=== PATIENT | female | born 1980 | race Caucasian/White ===

== ENCOUNTER 2019-02-16 12:46 | Outpatient (RCR) | payer OTHER, SELFPAY ==
--- NOTE | 2019-02-16 16:00 | PT.OIE ---
Current Diagnoses Benign paroxysmal vertigo, left ear (02/16/19) Provider Visit Care Team Role Provider Type Nisha Tate MD Attending Provider Physician Primary Care Provider Specialty: Family Practice Address: [address] [place] [address], [facility] Email: Physical Therapy Initial Evaluation PT-OP-A Visit Information Start: 02/16/19 07:25 Freq: Status: Active Protocol: Document 02/16/19 13:00 AMB (Rec: 02/19/19 08:45 AMB [email or web address]) Out-Patient Physical Therapy Visit Information Visit Information Visit Type Initial Evaluation Visit Start Time 13:00 Visit Stop Time 13:45 Total Visit Minutes 45 Visit Number 1 PT-OP-B Current Condition Start: 02/16/19 07:25 Freq: Status: Active Protocol: Document 02/16/19 13:00 AMB (Rec: 02/19/19 09:07 AMB [email or web address]) Current Condition History of Current Condition Onset Date 2 weeks ago Current Complaints vertigo History of Current Condition Rachel reports a history of 2 seperate instances of spinning vertigo. The first was about 2 years ago after the of her youngest child. She reports she felt off for a whole day, but then improved with the help of her chiropractor. She felt pretty good until 2 weeks ago, when she had dizziness again. This time enough that she vomited and her had to help her up from the bathroom floor . The worst of it is over now , but she still gets dizzy when getting out of bed. Prior Functional Status Baseline Function- ADL's Independent Baseline Function- Mobility Independent Current Functional Impairments (Reported) Functional Limitations- ADL's Limited with bed mobility, driving when it is at its worst. PT-OP-C Subjective Start: 02/16/19 07:25 Freq: Status: Active Protocol: Document 02/16/19 13:00 AMB (Rec: 02/19/19 08:48 AMB [email or web address]) Patient Questionnaires Dizziness Handicap Inventory DHI Score 42 DHI Functional Impairment 40 to 59% Impaired (Score 40- 59) PT-OP-O Vestibular Start: 02/16/19 07:25 Freq: Status: Active Protocol: Document 02/16/19 13:00 AMB (Rec: 02/19/19 08:53 AMB [email or web address]) Vestibular Assessment Visual Testing Smooth Pursuits Horizontal WFL Smooth Pursuits Vertical WFL Saccades Horizontal WFL Saccades Vertical WFL Thrust Head Negative Cover/Uncover Test WNL Positional Testing [place]-Hallpike Positive Left Upbeating Comments Vestibular Comments Dizziness and 2-3 seconds of upbeating nystagmus with first position of Bello, no dizziness or nystagmus with second Bello. PT-OP-Q Treatments Start: 02/16/19 07:25 Freq: Status: Active Protocol: Document 02/16/19 13:00 AMB (Rec: 02/19/19 08:48 AMB [email or web address]) Canalithic Repositioning BPPV Treatment Bello Affected Canal(s) Left Reps 2 PT-OP-T Assessment and Plan Start: 02/16/19 07:25 Freq: Status: Active Protocol: Document 02/16/19 13:00 AMB (Rec: 02/19/19 09:07 AMB [email or web address]) Physical Therapy Assessment Rehab Potential Rehabilitation Potential Good Evaluation Complexity Number of Personal Factors/Comorbidities 0 Number of Body Systems Impaired 1-2 Clinical Presentation at Evaluation Stable Impairments Impairments Functional Activities Vestibular Goals Two Impairment dizziness Short Term Goal (STG) Rachel will bend over to pick up man an item from the floor without dizziness. STG Duration 2 weeks Fpc Goal (LTG) Rachel will turn her head quickly without dizziness. LTG Duration 8 weeks One Impairment vestibular system Short Term Goal (STG) Rachel will get out of bed without dizziness. STG Duration 2 weeks Acoustic Engineer Goal (LTG) Rachel will have no dizziness or nystagmus with [place]-Hallpike. LTG Duration 4 weeks Assessment Summary Assessment Rachel attends physical therapy with what is likely her second bout of BPPV in the last 2 years. She does not report a concussion history. She showed good resolution of her symptoms when assessed during her second Bello, so assuming that her symptoms stay resolved, she will have a short bout of physical therapy . She is young to have already had two bouts of BPPV without head trauma history, so if this becomes recurrent for her she could consider further workup at that time. Physical Therapy Plan Frequency and Duration Frequency of Treatment 1x/Week Duration of Treatment 4 weeks Plan of Care Start Date 02/16/19 Plan of Care End Date 03/16/19 Therapeutic Interventions Therapeutic Interventions Neuromuscular Re-education Therapeutic Activities Therapeutic Exercises Vestibular Rehabilitation Next Visit Focus/Plan Next Note Type Treatment Note Next Visit Plan Recheck Ayan-Hallpike, if clear assess balance/ VOR.
--- NOTE | 2019-02-16 16:00 | PT.OPPOC ---
Current Diagnoses Benign paroxysmal vertigo, left ear (02/16/19) Provider Visit Care Team Role Provider Type Nisha Tate MD Attending Provider Physician Primary Care Provider Specialty: Family Practice Address: [address] [place] [address], [id number] Email: Plan Of Care PT-OP-T Assessment and Plan Start: 02/16/19 07:25 Freq: Status: Active Protocol: Document 02/16/19 13:00 AMB (Rec: 02/19/19 09:07 AMB [email or web address]) Physical Therapy Assessment Rehab Potential Rehabilitation Potential Good Evaluation Complexity Number of Personal Factors/Comorbidities 0 Number of Body Systems Impaired 1-2 Clinical Presentation at Evaluation Stable Impairments Impairments Functional Activities Vestibular Goals Two Impairment dizziness Short Term Goal (STG) Rachel will bend over to picker / packer an item from the floor without dizziness. STG Duration 2 weeks Door To Door Selling Agent Goal (LTG) Rachel will turn her head quickly without dizziness. LTG Duration 8 weeks One Impairment vestibular system Short Term Goal (STG) Rachel will get out of bed without dizziness. STG Duration 2 weeks Prison Goal (LTG) Rachel will have no dizziness or nystagmus with [place]-Hallpike. LTG Duration 4 weeks Assessment Summary Assessment Rachel attends physical therapy with what is likely her second bout of BPPV in the last 2 years. She does not report a concussion history. She showed good resolution of her symptoms when assessed during her second Bello, so assuming that her symptoms stay resolved, she will have a short bout of physical therapy . She is young to have already had two bouts of BPPV without head trauma history, so if this becomes recurrent for her she could consider further workup at that time. Physical Therapy Plan Frequency and Duration Frequency of Treatment 1x/Week Duration of Treatment 4 weeks Plan of Care Start Date 02/16/19 Plan of Care End Date 03/16/19 Therapeutic Interventions Therapeutic Interventions Neuromuscular Re-education Therapeutic Activities Therapeutic Exercises Vestibular Rehabilitation Next Visit Focus/Plan Next Note Type Treatment Note Next Visit Plan Recheck [place]-Hallpike, if clear assess balance/ VOR. Plan of Care Dates Plan of Care Start Date 02/16/19 Plan of Care End Date 03/16/19 Please Sign and Return: I have reviewed this Plan of Care and certify that the skilled therapy services above are required to meet the patient?s needs. Physician Signature Date Printed Name and Credentials Clinical Instructor Signature Printed Name and Credentials
--- NOTE | 2019-05-04 09:29 | PT.OPDS ---
Current Diagnoses Benign paroxysmal vertigo, left ear (02/16/19) Provider Visit Care Team Role Provider Type Nisha Tate MD Attending Provider Physician Primary Care Provider Specialty: Family Practice Address: [address] [place] [address], [facility] Email: Visit Number Visit Number 1 Discharge Summary PT-OP-B Current Condition Start: 02/16/19 07:25 Freq: Status: Active Protocol: Document 02/16/19 13:00 AMB (Rec: 02/19/19 09:07 AMB [email or web address]) Current Condition History of Current Condition Onset Date 2 weeks ago Current Complaints vertigo History of Current Condition Rachel reports a history of 2 seperate instances of spinning vertigo. The first was about 2 years ago after the of her youngest child. She reports she felt off for a whole day, but then improved with the help of her chiropractor. She felt pretty good until 2 weeks ago, when she had dizziness again. This time enough that she vomited and her had to help her up from the bathroom floor . The worst of it is over now , but she still gets dizzy when getting out of bed. Prior Functional Status Baseline Function- ADL's Independent Baseline Function- Mobility Independent Current Functional Impairments (Reported) Functional Limitations- ADL's Limited with bed mobility, driving when it is at its worst. PT-OP-C Subjective Start: 02/16/19 07:25 Freq: Status: Active Protocol: Document 02/16/19 13:00 AMB (Rec: 02/19/19 08:48 AMB [email or web address]) Patient Questionnaires Dizziness Handicap Inventory DHI Score 42 DHI Functional Impairment 40 to 59% Impaired (Score 40- 59) PT-OP-O Vestibular Start: 02/16/19 07:25 Freq: Status: Active Protocol: Document 02/16/19 13:00 AMB (Rec: 02/19/19 08:53 AMB [email or web address]) Vestibular Assessment Visual Testing Smooth Pursuits Horizontal WFL Smooth Pursuits Vertical WFL Saccades Horizontal WFL Saccades Vertical WFL Thrust Head Negative Cover/Uncover Test WNL Positional Testing Ayan-Hallpike Positive Left Upbeating Comments Vestibular Comments Dizziness and 2-3 seconds of upbeating nystagmus with first position of Bello, no dizziness or nystagmus with second Bello. PT-OP-T Assessment and Plan Start: 02/16/19 07:25 Freq: Status: Active Protocol: Document 05/04/19 09:27 AMB (Rec: 05/04/19 09:28 AMB [email or web address]) Physical Therapy Assessment Assessment Summary Assessment Rachel had good resolution of her BPPV during eval. She canceled her follow up appointment because she was feeling better and has not called back for follow up so she is discharged at this time .
== END 2019-05-04 13:42 | disposition home or self-care (01) ==
LOC: PHYS 12:46
PROVIDERS: PCP Family Medicine; Visit Provider Family Medicine
DX: H81.12 Benign paroxysmal vertigo, left ear (principal)
CPT/HCPCS: 95992; 97161

== ENCOUNTER → 2019-03-16 09:13 | Outpatient (CLI) | payer OTHER, SELFPAY ==
--- NOTE | 2019-03-16 | DI.US.S_ITS ---
PROCEDURE: US PELVIC COMPLETE INDICATIONS: ADNEXAL TENDERNESS TECHNIQUE: Real-time scanning was performed of the pelvic organs, with image documentation. Additional endovaginal scanning was necessary due to incomplete visualization of the adnexal and endometrial structures by transabdominal scanning. COMPARISON: None. FINDINGS: Transabdominal scanning: Limited scanning through the kidneys shows no hydronephrosis. No pathologic free abdominal or pelvic fluid. Endovaginal scanning: Uterus: Uterus is normal in size at 8.3 x 4.6 x 6.0 cm. The endometrium measures 5.0 mm in combined thickness. Ovaries: Normal ovaries bilaterally measuring 2.2 x 1.2 x 1.3 cm on the right and 1.1 x 2.7 x 1.6 cm on the left. IMPRESSION: No source for pelvic pain identified. Dictated by: Shubham Akers Nia Interpreted: Eunice Tang MD on 03/16/2019 at 10:17 Approved by: Eunice Tang M.D. on 03/16/2019 at 11:42
== END ==
PROVIDERS: PCP Family Medicine; Visit Provider Family Medicine
DX: R10.2 Pelvic and perineal pain (principal)
CPT/HCPCS: 76830; 76856

== ENCOUNTER → 2019-09-17 09:03 | Outpatient (CLI) | payer OTHER, SELFPAY ==
--- NOTE | 2019-09-17 | DI.US.S_ITS ---
ULTRASOUND OF LEFT BREAST: 09/17/2019 CLINICAL: Focal left breast discomfort. Comparison is made to exam dated: 09/17/2019 [facility]. Real-time ultrasound of the left breast was performed. Baugh scale images of the real-time examination were reviewed. No significant abnormalities were seen sonographically in the left breast. IMPRESSION: NEGATIVE There is no sonographic evidence of malignancy. There is no abnormality seen in the left breast to correspond with the area of clinical concern, palpable abnormality, and pain indicated by square marker, however, clinical followup is recommended for persistent symptoms. A 1 year screening mammogram is recommended. This exam was interpreted at Station ID: [id number]. Electronically Signed By: Salvador Reyes M.D. aty/:09/17/2019 16:26:13 letter sent: Normal Exam Ultrasound BI-RADS: 1 Negative
--- NOTE | 2019-09-17 | DI.MG.S_ITS ---
BILATERAL DIGITAL DIAGNOSTIC MAMMOGRAM 3D/2D: 09/17/2019 CLINICAL: Baseline. Family history of breast cancer. Left breast discomfort. No prior exams were available for comparison. The tissue of both breasts is extremely dense, which lowers the sensitivity of mammography. No significant masses, calcifications, or other findings are seen in either breast. IMPRESSION: INCOMPLETE: NEEDS ADDITIONAL IMAGING EVALUATION There is no abnormality seen in the left breast to correspond with the area of clinical concern, palpable abnormality, and pain in the posterior depth in the upper outer quadrant, however, further evaluation with sonogram is recommended which is scheduled to immediately follow this examination. This exam was interpreted at Station ID: [id number]. NOTE: For mammograms, a report in lay terms will be sent to the patient. Approximately 15% of breast malignancies will not be visualized mammographically. In the management of a palpable breast mass, a negative mammogram must not discourage biopsy of a clinically suspicious lesion. Electronically Signed By: Salvador Reyes M.D. aty/:09/17/2019 16:15:00 ACR BI-RADS Category 0: Incomplete [id number]
== END ==
PROVIDERS: PCP Family Medicine; Visit Provider Family Medicine
DX: R92.8 Other abnormal and inconclusive findings on diagnostic imaging of breast (principal); N64.4 Mastodynia; N63.20 Unspecified lump in the left breast, unspecified quadrant; Z80.3 Family history of malignant neoplasm of breast
CPT/HCPCS: 76642; 77066; G0279

== ENCOUNTER 2019-12-13 10:30 | Outpatient (RCR) | payer OTHER, SELFPAY ==
--- NOTE | 2019-12-10 16:04 | PT.OIE ---
Current Diagnoses Benign paroxysmal vertigo, unspecified ear (12/10/19) Visit Care Team Role Provider Type Nisha Tate MD Attending Provider Physician Primary Care Provider Referring Provider Specialty: Family Practice Address: [address] [place] [address], [facility], [place], [place], [facility] Email: [email or web address] Physical Therapy Initial Evaluation PT-OP-A Visit Information Start: 12/10/19 10:04 Freq: Status: Active Protocol: Document 12/10/19 10:33 MB (Rec: 12/10/19 11:35 MB [id number]) Out-Patient Physical Therapy Visit Information Visit Information Visit Type Initial Evaluation Visit Note [facility] Visit Start Time 10:35 Visit Stop Time 11:35 Total Visit Minutes 60 Visit Number 1 Evaluation Information Evaluation Date 12/10/19 PT-OP-B Current Condition Start: 12/10/19 10:04 Freq: Status: Active Protocol: Document 12/10/19 10:33 MB (Rec: 12/10/19 11:35 MB [id number]) Current Condition History of Current Condition Onset Date 12/09/2019 Current Complaints Nausea, dizziness and headache History of Current Condition Pt reports that she woke up on her left side and rolled over the right and that is when she could not walk straight. Her neck is not hurting. She is having a frontal ERVIN. She rates it as 5-6/10. She thinks that sitting in a room with a bright light might exacerbate it. She has had borderline migraine-type headaches in the past when she has had vertigo . She tried the summersault technique yesterday x3 and vomited each time and didn't feel better. She had roaring and ringing in her right ear yesterday. She is having right ear ringing and it is not feeling right. This is the fourth time she has had this problem. The symptoms usually last 2-4 days. She denies vision changes, allergies, weakness. She denies chiropractor care, MVA, whiplash, head injury. She went to [employer] and rode rides several weeks ago. She works out a lot and watches her posture. She had recurrent strep in the past and was on antibiotics. She was thinking about getting her tonsils out. 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 She uses one full pillow under her head. Her right ear hurts when she lies on it. Prior Treatments and Tests PT for BPPV last year, hearing test, an Bello by urgent care and ENT PT-OP-C Subjective Start: 12/10/19 10:04 Freq: Status: Active Protocol: Document 12/10/19 10:33 MB (Rec: 12/10/19 16:01 MB [id number]) OP-PT Subjective Patient Comments Patient Comments Just get me better. Patient Reported Progress Same OP-PT Pain Assessment Comments Pain Comments Pt reports headache in frontal area 5-6/10 that is exacerbated by light and BPPV testing and treatment positions PT-OP-K Range of Motion Start: 12/10/19 10:04 Freq: Status: Active Protocol: Document 12/10/19 10:33 MB (Rec: 12/10/19 16:01 MB [id number]) Cervical Spine Range of Motion Cervical Spine Active Testing Position Sitting Comments Flexion, extension and B rotation normal PT-OP-M Strength Start: 12/10/19 10:04 Freq: Status: Active Protocol: Document 12/10/19 10:33 MB (Rec: 12/10/19 16:01 MB [id number]) Shoulder Strength Shoulder Manual Muscle Testing Left Flexion 5 Normal Right Flexion 5 Normal Elbow/Forearm Strength Elbow and Forearm Manual Muscle Testing Left Flexion (C6) 5 Normal Extension (C7) 5 Normal Right Flexion (C6) 5 Normal Extension (C7) 5 Normal PT-OP-O Vestibular Start: 12/10/19 10:04 Freq: Status: Active Protocol: Document 12/10/19 10:33 MB (Rec: 12/10/19 16:01 MB [id number]) Vestibular Assessment Visual Testing Smooth Pursuits Horizontal Normal Smooth Pursuits Vertical Normal Gaze Evoked Nystagmus With Fixation Negative Convergence Test WNL Spontaneous Nystagmus Negative Positional Testing Ayan-Hallpike Positive Right,Upbeating,> 60 Seconds Comments Vestibular Comments Nystagmus is delayed with right Ayan-Hallpike and then lasts greater than 1 min. It is upbeating and rotatory in nature. PT moves pt through canalith repositioning maneuver since she is already down and then PT treats her with Semont maneuver for right posterior cupulolithiasis. While in Semont position 1, her nystagmus lasts at least 2 minutes (the longer she is in position) and she reports neck discomfort. PT is concerned about possible vertebrobasilar component to sxs. Pt walks with head and neck guarded, emesis bag and is unable to tolerate further balance testing today d/t severity of sxs PT-OP-Q Treatments Start: 12/10/19 10:04 Freq: Status: Active Protocol: Document 12/10/19 10:33 MB (Rec: 12/10/19 16:01 MB [id number]) Canalithic Repositioning BPPV Treatment Other Comments Canalith repositioning maneuever right posterior canal d/t [place]-Hallpike positioning and then Semont maneuever to the right for right posterior cupulolithiasis PT-OP-T Assessment and Plan Start: 12/10/19 10:04 Freq: Status: Active Protocol: Document 12/10/19 10:33 MB (Rec: 12/10/19 16:01 MB [id number]) Physical Therapy Assessment Rehab Potential Rehabilitation Potential Fair Evaluation Complexity Number of Personal Factors/Comorbidities 1-2 Number of Body Systems Impaired 3 Clinical Presentation at Evaluation Evolving Impairments Impairments Activity Tolerance,Balance, Functional Mobility,Gait,Pain, Posture,Vestibular Other Impairments Personal factors include not safely driving d/t symptoms, caring for 3 children, 4 episodes of similar symptoms. Body systems affected include vestibular, neuromuscular and musculoskeletal (headache pain ) as well as GI (nausea). Her clinical presentation is evolving d/t ongoing nystagmus with prolonged positioning, severity of sxs Goals Two Senior Living Goal (LTG) Pt will perform progressive HEP including postural, VOR, and self-repositioning maneuver (as appropriate) with I by 01/23/2020. LTG Duration 6 weeks One Line Controller Goal (LTG) Pt will present with no dizziness or nystagmus with [place]-Hallpike and Roll Testing by 01/23/2020. LTG Duration 6 weeks Assessment Summary Assessment Pt is a 39 y/o female presenting with severe dizziness, mild ERVIN and nausea. She woke up yesterday and had dizziness. She has right ear pain and tinnitus. She presents with delayed onset of nystagmus with right [place]- Hallpike today. Nystagmus is upbeating and torsional and lasts longer than a 60 seconds . Treated with Semont maneuver for right posterior cupulolithiasis. Pt presents with nystagmus greater than 2 minutes when held in first position of Semont maneuver. This position is with pt head and neck in right cervical rotation and extension. Given the length of nystagmus, PT is concerned about a possible vertebrobasilar component to her sxs. She also has right ear pain, tinnitus and history of similar events in the past . She may benefit from ENT consult for further work-up. PT referred pt back to PCP. Will initiate PT trial to reassess BPPV and treat as needed. Rapid pronation and supination, finger to nose, pupil constriction to light and oculomotor exam are all negative today. Physical Therapy Plan Frequency and Duration Frequency of Treatment 2x/Week Duration of Treatment 6 weeks Plan of Care Start Date 12/10/19 Plan of Care End Date 01/23/20 Therapeutic Interventions Therapeutic Interventions Balance Training,Canalithic Repositioning,Coordination Training,Home Exercise Program ,Manual Therapy,Neuromuscular Re-education,Patient/Caregiver Education,Self-Care/Home Management,Soft Tissue Mobilization,Taping, Therapeutic Activities, Therapeutic Exercises, Vestibular Rehabilitation Modalities Cold Pack/Ice Massage,Electric Stimulation,Hot Packs, Ultrasound Other Referrals/Consults Referrals/Consults Recommended Returned to PCP for possible follow-up about vertebrobasilar insufficiency, possible ENT referral regarding right ear pain, four episodes of similar sxs in the past, tinnitus, hearing test Next Visit Focus/Plan Next Note Type Treatment Note Next Visit Plan Reassess BPPV
--- NOTE | 2019-12-10 16:04 | PT.OPPOC ---
Physical, Occupational & Speech Therapy At [facility] Current Diagnoses Benign paroxysmal vertigo, unspecified ear (12/10/19) Visit Care Team Role Provider Type Nisha Tate MD Attending Provider Physician Primary Care Provider Referring Provider Specialty: Family Practice Address: [address] [place] [address], [facility], [address] Email: [email or web address] Plan Of Care PT-OP-T Assessment and Plan Start: 12/10/19 10:04 Freq: Status: Active Protocol: Document 12/10/19 10:33 MB (Rec: 12/10/19 16:01 MB [id number]) Physical Therapy Assessment Rehab Potential Rehabilitation Potential Fair Evaluation Complexity Number of Personal Factors/Comorbidities 1-2 Number of Body Systems Impaired 3 Clinical Presentation at Evaluation Evolving Impairments Impairments Activity Tolerance,Balance, Functional Mobility,Gait,Pain, Posture,Vestibular Other Impairments Personal factors include not safely driving d/t symptoms, caring for 3 children, 4 episodes of similar symptoms. Body systems affected include vestibular, neuromuscular and musculoskeletal (headache pain ) as well as GI (nausea). Her clinical presentation is evolving d/t ongoing nystagmus with prolonged positioning, severity of sxs Goals Two Mattress And Foundation Sewer Goal (LTG) Pt will perform progressive HEP including postural, VOR, and self-repositioning maneuver (as appropriate) with I by 01/23/2020. LTG Duration 6 weeks One Residential Goal (LTG) Pt will present with no dizziness or nystagmus with [place]-Hallpike and Roll Testing by 01/23/2020. LTG Duration 6 weeks Assessment Summary Assessment Pt is a 39 y/o female presenting with severe dizziness, mild ERVIN and nausea. She woke up yesterday and had dizziness. She has right ear pain and tinnitus. She presents with delayed onset of nystagmus with right Ayan- Hallpike today. Nystagmus is upbeating and torsional and lasts longer than a 60 seconds . Treated with Semont maneuver for right posterior cupulolithiasis. Pt presents with nystagmus greater than 2 minutes when held in first position of Semont maneuver. This position is with pt head and neck in right cervical rotation and extension. Given the length of nystagmus, PT is concerned about a possible vertebrobasilar component to her sxs. She also has right ear pain, tinnitus and history of similar events in the past . She may benefit from ENT consult for further work-up. PT referred pt back to PCP. Will initiate PT trial to reassess BPPV and treat as needed. Rapid pronation and supination, finger to nose, pupil constriction to light and oculomotor exam are all negative today. Physical Therapy Plan Frequency and Duration Frequency of Treatment 2x/Week Duration of Treatment 6 weeks Plan of Care Start Date 12/10/19 Plan of Care End Date 01/23/20 Therapeutic Interventions Therapeutic Interventions Balance Training,Canalithic Repositioning,Coordination Training,Home Exercise Program ,Manual Therapy,Neuromuscular Re-education,Patient/Caregiver Education,Self-Care/Home Management,Soft Tissue Mobilization,Taping, Therapeutic Activities, Therapeutic Exercises, Vestibular Rehabilitation Modalities Cold Pack/Ice Massage,Electric Stimulation,Hot Packs, Ultrasound Other Referrals/Consults Referrals/Consults Recommended Returned to PCP for possible follow-up about vertebrobasilar insufficiency, possible ENT referral regarding right ear pain, four episodes of similar sxs in the past, tinnitus, hearing test Next Visit Focus/Plan Next Note Type Treatment Note Next Visit Plan Reassess BPPV Plan of Care Dates Plan of Care Start Date 12/10/19 Plan of Care End Date 01/23/20 Electronically Signed by: Paula Mcadams PT 12/10/19 [id number] Please Sign and Return: I have reviewed this Plan of Care and certify that the skilled therapy services above are required to meet the patient?s needs. Physician Signature Date Printed Name and Credentials Clinical Instructor Signature Printed Name and Credentials
--- NOTE | 2019-12-13 12:56 | PT.OTN ---
Current Diagnoses Benign paroxysmal vertigo, unspecified ear (12/13/19) Physical Therapy Treatment Note PT-OP-A Visit Information Start: 12/10/19 10:04 Freq: Status: Active Protocol: Document 12/13/19 10:30 DCW (Rec: 12/13/19 12:56 DCW [id number]) Out-Patient Physical Therapy Visit Information Visit Information Visit Type Treatment Note Visit Start Time 10:30 Visit Stop Time 11:15 Total Visit Minutes 45 Visit Number 2 Number of LOGISTICS PLANNING ENGINEER Visits 0 Evaluation Information Evaluation Date 12/10/19 PT-OP-B Current Condition Start: 12/10/19 10:04 Freq: Status: Active Protocol: Document 12/10/19 10:33 MB (Rec: 12/10/19 11:35 MB [id number]) Current Condition History of Current Condition Onset Date 12/09/2019 Current Complaints Nausea, dizziness and headache History of Current Condition Pt reports that she woke up on her left side and rolled over the right and that is when she could not walk straight. Her neck is not hurting. She is having a frontal ERVIN. She rates it as 5-6/10. She thinks that sitting in a room with a bright light might exacerbate it. She has had borderline migraine-type headaches in the past when she has had vertigo . She tried the summersault technique yesterday x3 and vomited each time and didn't feel better. She had roaring and ringing in her right ear yesterday. She is having right ear ringing and it is not feeling right. This is the fourth time she has had this problem. The symptoms usually last 2-4 days. She denies vision changes, allergies, weakness. She denies chiropractor care, MVA, whiplash, head injury. She went to [place] and rode rides several weeks ago. She works out a lot and watches her posture. She had recurrent strep in the past and was on antibiotics. She was thinking about getting her tonsils out. 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 She uses one full pillow under her head. Her right ear hurts when she lies on it. Prior Treatments and Tests PT for BPPV last year, hearing test, an Bello by urgent care and ENT PT-OP-C Subjective Start: 12/10/19 10:04 Freq: Status: Active Protocol: Document 12/13/19 10:30 DCW (Rec: 12/13/19 12:56 DCW [id number]) OP-PT Subjective Patient Comments Patient Comments Pt reports she is improved, but not great. Able to drive today for the first time since Tuesday. Pt reports she looked up to try to hang a picture yesterday, got very dizzy, and laid down in bed, and is now getting dizzy on her left side . PT-OP-K Range of Motion Start: 12/10/19 10:04 Freq: Status: Active Protocol: Document 12/10/19 10:33 MB (Rec: 12/10/19 16:01 MB [id number]) Cervical Spine Range of Motion Cervical Spine Active Testing Position Sitting Comments Flexion, extension and B rotation normal PT-OP-M Strength Start: 12/10/19 10:04 Freq: Status: Active Protocol: Document 12/10/19 10:33 MB (Rec: 12/10/19 16:01 MB [id number]) Shoulder Strength Shoulder Manual Muscle Testing Left Flexion 5 Normal Right Flexion 5 Normal Elbow/Forearm Strength Elbow and Forearm Manual Muscle Testing Left Flexion (C6) 5 Normal Extension (C7) 5 Normal Right Flexion (C6) 5 Normal Extension (C7) 5 Normal PT-OP-O Vestibular Start: 12/10/19 10:04 Freq: Status: Active Protocol: Document 12/13/19 10:30 DCW (Rec: 12/13/19 12:56 DCW [id number]) Vestibular Assessment Visual Testing Saccades Horizontal WNL Saccades Vertical WNL Gaze Evoked Nystagmus With Fixation Negative Gaze Evoked Nystagmus Without Fixation Negative Heave Test Negative Thrust Head Negative Hamlet String Test WNL Convergence Test 3 cm DVA (Line Degradation) 0 Head Shake Negative Positional Testing Ayan-Hallpike Negative Left,Negative Right Rolling Test Negative Left,Negative Right Supine to Sit Negative Vestibular Function Tests CTSIB Position 1 30 sec CTSIB Position 2 30 sec CTSIB Position 3 30 sec CTSIB Position 4 30 sec CTSIB Position 5 30 sec CTSIB Position 6 30 sec PT-OP-Q Treatments Start: 12/10/19 10:04 Freq: Status: Active Protocol: Document 12/13/19 10:30 DCW (Rec: 12/13/19 12:56 DCW [id number]) Manual Therapy Treatment Other Other Manual Treatments Further vestibular testing Canalithic Repositioning BPPV Treatment Bello Affected Canal(s) Left Reps x1 PT-OP-T Assessment and Plan Start: 12/10/19 10:04 Freq: Status: Active Protocol: Document 12/13/19 10:30 DCW (Rec: 12/13/19 12:56 DCW [id number]) Physical Therapy Assessment Impairments Impairments Activity Tolerance,Balance, Functional Mobility,Gait,Pain, Posture,Vestibular Other Impairments Personal factors include not safely driving d/t symptoms, caring for 3 children, 4 episodes of similar symptoms. Body systems affected include vestibular, neuromuscular and musculoskeletal (headache pain ) as well as GI (nausea). Her clinical presentation is evolving d/t ongoing nystagmus with prolonged positioning, severity of sxs Goals Two Electronic Warfare Specialist Goal (LTG) Pt will perform progressive HEP including postural, VOR, and self-repositioning maneuver (as appropriate) with I by 01/23/2020. LTG Duration 6 weeks One Electronic Warfare Specialist Goal (LTG) Pt will present with no dizziness or nystagmus with [place]-Hallpike and Roll Testing by 01/23/2020. LTG Duration 6 weeks Assessment Summary Assessment Pt vestibular testing was entirely negative, pt was asymptomatic throughout her entire session today. Because of her complaints of brief vertigo yesterday when rolling onto her left side, a left- sided CRM for her posterior canal was performed, despite no noticeable nystagmus or complaint of symptoms. Due to pt's reports of symptoms between her last maneuvers and today, would recommend that she return for her scheduled follow-up to see if her symptoms have returned at that time. Physical Therapy Plan Frequency and Duration Frequency of Treatment 2x/Week Duration of Treatment 6 weeks Plan of Care Start Date 12/10/19 Plan of Care End Date 01/23/20 Therapeutic Interventions Therapeutic Interventions Balance Training,Canalithic Repositioning,Coordination Training,Home Exercise Program ,Manual Therapy,Neuromuscular Re-education,Patient/Caregiver Education,Self-Care/Home Management,Soft Tissue Mobilization,Taping, Therapeutic Activities, Therapeutic Exercises, Vestibular Rehabilitation Modalities Cold Pack/Ice Massage,Electric Stimulation,Hot Packs, Ultrasound Next Visit Focus/Plan Next Note Type Treatment Note Next Visit Plan Reassess BPPV
--- NOTE | 2019-12-13 15:01 | PT.OTN ---
Current Diagnoses Benign paroxysmal vertigo, unspecified ear (12/13/19) Physical Therapy Treatment Note PT-OP-A Visit Information Start: 12/10/19 10:04 Freq: Status: Active Protocol: Document 12/13/19 10:30 DCW (Rec: 12/13/19 12:56 DCW [id number]) Out-Patient Physical Therapy Visit Information Visit Information Visit Type Treatment Note Visit Start Time 10:30 Visit Stop Time 11:15 Total Visit Minutes 45 Visit Number 2 Number of TAX CREDIT LEASING CONSULTANT Visits 0 Evaluation Information Evaluation Date 12/10/19 PT-OP-B Current Condition Start: 12/10/19 10:04 Freq: Status: Active Protocol: Document 12/10/19 10:33 MB (Rec: 12/10/19 11:35 MB [id number]) Current Condition History of Current Condition Onset Date 12/09/2019 Current Complaints Nausea, dizziness and headache History of Current Condition Pt reports that she woke up on her left side and rolled over the right and that is when she could not walk straight. Her neck is not hurting. She is having a frontal ERVIN. She rates it as 5-6/10. She thinks that sitting in a room with a bright light might exacerbate it. She has had borderline migraine-type headaches in the past when she has had vertigo . She tried the summersault technique yesterday x3 and vomited each time and didn't feel better. She had roaring and ringing in her right ear yesterday. She is having right ear ringing and it is not feeling right. This is the fourth time she has had this problem. The symptoms usually last 2-4 days. She denies vision changes, allergies, weakness. She denies chiropractor care, MVA, whiplash, head injury. She went to [employer] and rode rides several weeks ago. She works out a lot and watches her posture. She had recurrent strep in the past and was on antibiotics. She was thinking about getting her tonsils out. 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 She uses one full pillow under her head. Her right ear hurts when she lies on it. Prior Treatments and Tests PT for BPPV last year, hearing test, an Bello by urgent care and ENT PT-OP-C Subjective Start: 12/10/19 10:04 Freq: Status: Active Protocol: Document 12/13/19 10:30 DCW (Rec: 12/13/19 12:56 DCW [id number]) OP-PT Subjective Patient Comments Patient Comments Pt reports she is improved, but not great. Able to drive today for the first time since Tuesday. Pt reports she looked up to try to hang a picture yesterday, got very dizzy, and laid down in bed, and is now getting dizzy on her left side . PT-OP-K Range of Motion Start: 12/10/19 10:04 Freq: Status: Active Protocol: Document 12/10/19 10:33 MB (Rec: 12/10/19 16:01 MB [id number]) Cervical Spine Range of Motion Cervical Spine Active Testing Position Sitting Comments Flexion, extension and B rotation normal PT-OP-M Strength Start: 12/10/19 10:04 Freq: Status: Active Protocol: Document 12/10/19 10:33 MB (Rec: 12/10/19 16:01 MB [id number]) Shoulder Strength Shoulder Manual Muscle Testing Left Flexion 5 Normal Right Flexion 5 Normal Elbow/Forearm Strength Elbow and Forearm Manual Muscle Testing Left Flexion (C6) 5 Normal Extension (C7) 5 Normal Right Flexion (C6) 5 Normal Extension (C7) 5 Normal PT-OP-O Vestibular Start: 12/10/19 10:04 Freq: Status: Active Protocol: Document 12/13/19 10:30 DCW (Rec: 12/13/19 12:56 DCW [id number]) Vestibular Assessment Visual Testing Saccades Horizontal WNL Saccades Vertical WNL Gaze Evoked Nystagmus With Fixation Negative Gaze Evoked Nystagmus Without Fixation Negative Heave Test Negative Thrust Head Negative Hamlet String Test WNL Convergence Test 3 cm DVA (Line Degradation) 0 Head Shake Negative Positional Testing Ayan-Hallpike Negative Left,Negative Right Rolling Test Negative Left,Negative Right Supine to Sit Negative Vestibular Function Tests CTSIB Position 1 30 sec CTSIB Position 2 30 sec CTSIB Position 3 30 sec CTSIB Position 4 30 sec CTSIB Position 5 30 sec CTSIB Position 6 30 sec PT-OP-Q Treatments Start: 12/10/19 10:04 Freq: Status: Active Protocol: Document 12/13/19 10:30 DCW (Rec: 12/13/19 12:56 DCW [id number]) Manual Therapy Treatment Soft Tissue Mobilization 1 Body Location Suboccipital Mobilization Type Myofascial Release,Sustained Pressure Intensity/Depth Superficial Body Position Supine Other Other Manual Treatments Further vestibular testing Canalithic Repositioning BPPV Treatment Bello Affected Canal(s) Left Reps x1 PT-OP-T Assessment and Plan Start: 12/10/19 10:04 Freq: Status: Active Protocol: Document 12/13/19 10:30 DCW (Rec: 12/13/19 12:56 DCW [id number]) Physical Therapy Assessment Impairments Impairments Activity Tolerance,Balance, Functional Mobility,Gait,Pain, Posture,Vestibular Other Impairments Personal factors include not safely driving d/t symptoms, caring for 3 children, 4 episodes of similar symptoms. Body systems affected include vestibular, neuromuscular and musculoskeletal (headache pain ) as well as GI (nausea). Her clinical presentation is evolving d/t ongoing nystagmus with prolonged positioning, severity of sxs Goals Two Mill Dresser Goal (LTG) Pt will perform progressive HEP including postural, VOR, and self-repositioning maneuver (as appropriate) with I by 01/23/2020. LTG Duration 6 weeks One Skilled Nursing Goal (LTG) Pt will present with no dizziness or nystagmus with [place]-Hallpike and Roll Testing by 01/23/2020. LTG Duration 6 weeks Assessment Summary Assessment Pt vestibular testing was entirely negative, pt was asymptomatic throughout her entire session today. Because of her complaints of brief vertigo yesterday when rolling onto her left side, a left- sided CRM for her posterior canal was performed, despite no noticeable nystagmus or complaint of symptoms. Due to pt's reports of symptoms between her last maneuvers and today, would recommend that she return for her scheduled follow-up to see if her symptoms have returned at that time. Brief trial of suboccipital release at the end of her session help pt's complaints of headache immediately. Physical Therapy Plan Frequency and Duration Frequency of Treatment 2x/Week Duration of Treatment 6 weeks Plan of Care Start Date 12/10/19 Plan of Care End Date 01/23/20 Therapeutic Interventions Therapeutic Interventions Balance Training,Canalithic Repositioning,Coordination Training,Home Exercise Program ,Manual Therapy,Neuromuscular Re-education,Patient/Caregiver Education,Self-Care/Home Management,Soft Tissue Mobilization,Taping, Therapeutic Activities, Therapeutic Exercises, Vestibular Rehabilitation Modalities Cold Pack/Ice Massage,Electric Stimulation,Hot Packs, Ultrasound Next Visit Focus/Plan Next Note Type Treatment Note Next Visit Plan Reassess BPPV
--- NOTE | 2019-12-17 09:53 | PT.OPDS ---
Current Diagnoses Benign paroxysmal vertigo, unspecified ear (12/13/19) Visit Care Team Role Provider Type Nisha Tate MD Attending Provider Physician Primary Care Provider Referring Provider Specialty: Family Practice Address: [address] [place] [address], [address], [place], [place], [facility] Email: [email or web address] Visit Number Visit Number 2 Discharge Summary PT-OP-B Current Condition Start: 12/10/19 10:04 Freq: Status: Active Protocol: Document 12/10/19 10:33 MB (Rec: 12/10/19 11:35 MB [id number]) Current Condition History of Current Condition Onset Date 12/09/2019 Current Complaints Nausea, dizziness and headache History of Current Condition Pt reports that she woke up on her left side and rolled over the right and that is when she could not walk straight. Her neck is not hurting. She is having a frontal ERVIN. She rates it as 5-6/10. She thinks that sitting in a room with a bright light might exacerbate it. She has had borderline migraine-type headaches in the past when she has had vertigo . She tried the summersault technique yesterday x3 and vomited each time and didn't feel better. She had roaring and ringing in her right ear yesterday. She is having right ear ringing and it is not feeling right. This is the fourth time she has had this problem. The symptoms usually last 2-4 days. She denies vision changes, allergies, weakness. She denies chiropractor care, MVA, whiplash, head injury. She went to [employer] [place] [employer] rides several weeks ago. She works out a lot and watches her posture. She had recurrent strep in the past and was on antibiotics. She was thinking about getting her tonsils out. 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 She uses one full pillow under her head. Her right ear hurts when she lies on it. Prior Treatments and Tests PT for BPPV last year, hearing test, an Bello by urgent care and ENT PT-OP-C Subjective Start: 12/10/19 10:04 Freq: Status: Active Protocol: Document 12/13/19 10:30 DCW (Rec: 12/13/19 12:56 DCW [id number]) OP-PT Subjective Patient Comments Patient Comments Pt reports she is improved, but not great. Able to drive today for the first time since Tuesday. Pt reports she looked up to try to hang a picture yesterday, got very dizzy, and laid down in bed, and is now getting dizzy on her left side . PT-OP-K Range of Motion Start: 12/10/19 10:04 Freq: Status: Active Protocol: Document 12/10/19 10:33 MB (Rec: 12/10/19 16:01 MB [id number]) Cervical Spine Range of Motion Cervical Spine Active Testing Position Sitting Comments Flexion, extension and B rotation normal PT-OP-M Strength Start: 12/10/19 10:04 Freq: Status: Active Protocol: Document 12/10/19 10:33 MB (Rec: 12/10/19 16:01 MB [id number]) Shoulder Strength Shoulder Manual Muscle Testing Left Flexion 5 Normal Right Flexion 5 Normal Elbow/Forearm Strength Elbow and Forearm Manual Muscle Testing Left Flexion (C6) 5 Normal Extension (C7) 5 Normal Right Flexion (C6) 5 Normal Extension (C7) 5 Normal PT-OP-O Vestibular Start: 12/10/19 10:04 Freq: Status: Active Protocol: Document 12/13/19 10:30 DCW (Rec: 12/13/19 12:56 DCW [id number]) Vestibular Assessment Visual Testing Saccades Horizontal WNL Saccades Vertical WNL Gaze Evoked Nystagmus With Fixation Negative Gaze Evoked Nystagmus Without Fixation Negative Heave Test Negative Thrust Head Negative Hamlet String Test WNL Convergence Test 3 cm DVA (Line Degradation) 0 Head Shake Negative Positional Testing [place]-Hallpike Negative Left,Negative Right Rolling Test Negative Left,Negative Right Supine to Sit Negative Vestibular Function Tests CTSIB Position 1 30 sec CTSIB Position 2 30 sec CTSIB Position 3 30 sec CTSIB Position 4 30 sec CTSIB Position 5 30 sec CTSIB Position 6 30 sec PT-OP-T Assessment and Plan Start: 12/10/19 10:04 Freq: Status: Active Protocol: Document 12/17/19 09:51 MB (Rec: 12/17/19 09:53 MB [id number]) Physical Therapy Plan Discharge Physical Therapy Discharge Reasons Patient Request Discharge Comments Pt cancels PT today, stating that she has no more dizziness . PT calls pt and encourages pt to get an ENT referral for work-up including hearing test in setting of 4 bouts of dizziness, vertigo and hearing changes that lasts several days. Pt will call her PCP. She would like to cancel future treatments. Will d/c PT .
== END 2019-12-18 13:15 ==
LOC: PHYS 10:30
PROVIDERS: PCP Family Medicine; Referring Provider Family Medicine; Visit Provider Family Medicine
DX: H81.10 Benign paroxysmal vertigo, unspecified ear (principal)
CPT/HCPCS: 95992; 97140; 97162

== ENCOUNTER → 2020-08-22 09:29 | Outpatient (CLI) | payer OTHER, SELFPAY ==
--- NOTE | 2020-08-22 09:47 | DI.CT.S_ITS ---
PROCEDURE: CT INTERNAL AUDITORY CANALS BI INDICATIONS: Intermittent, debilitating vertigo COMPARISON: None. TECHNIQUE: Noncontrast 0.6 mm thick direct axial and coronal sections acquired through each temporal bone separately. FINDINGS: Image quality: Excellent. RIGHT: External auditory canal: Canal has a normal appearance. Middle ear: The middle ear structures, including the ossicles and tympanic membrane, appear normal. No abnormal fluid or soft tissue density. Inner ear: Inner ear is normally formed and appears unremarkable. Facial nerve appears normal throughout is course. Mastoids: Mastoid air cells are clear. LEFT: External auditory canal: Canal has a normal appearance. Middle ear: The middle ear structures, including the ossicles and tympanic membrane, appear normal. No abnormal fluid or soft tissue density. Inner ear: Inner ear is normally formed and appears unremarkable. Facial nerve appears normal throughout its course. Mastoids: Mastoid air cells are clear. MISCELLANEOUS: Visualized surrounding bones appear unremarkable. Visualized intracranial structures, including the cerebellopontine angle cisterns, appear normal. IMPRESSION: Normal CT examination of the temporal bones with no abnormality to explain symptoms. Dictated by: Cayden Staley M.D. on 08/22/2020 at 10:10 Approved by: Cayden Staley M.D. on 08/22/2020 at 10:13
== END ==
PROVIDERS: PCP Family Medicine; Referring Provider Family Medicine; Visit Provider Family Medicine
DX: R42 Dizziness and giddiness (principal)
CPT/HCPCS: 70480

== ENCOUNTER 2020-09-17 10:30 | Outpatient (RCR) | payer OTHER, SELFPAY ==
--- NOTE | 2020-08-22 16:28 | PT.OIE ---
Current Diagnoses Benign paroxysmal vertigo, unspecified ear (08/22/20) Pain in unspecified shoulder (08/22/20) Dorsalgia, unspecified (08/22/20) Past Medical History (Last Reviewed 08/21/20 @ 12:00 by Myron Cervantes MD) Acute right-sided low back pain without sciatica (Acute) Anxiety (Chronic) BPPV (benign paroxysmal positional vertigo) (Acute) Fatigue (Acute) Hypothyroidism (Chronic ~2015) Lumbar region somatic dysfunction (Acute) Pelvic somatic dysfunction (Acute) Reactive depression (situational) (Acute) Sacral region somatic dysfunction (Acute) Segmental and somatic dysfunction of abdomen and other regions (Acute) Vertigo (Inactive ~2016) Past Surgical History (Last Reviewed 08/21/20 @ 12:00 by Myron Cervantes MD) Anesthesia (Resolved) History of section (Resolved) History of repair of ACL (Resolved) Visit Care Team Role Provider Type Martin Conroy DO Primary Care Provider Physician Specialty: [facility] Address: [address] [place] [address] Email: Myron Cervantes MD Attending Provider Physician Referring Provider [facility]ty: [facility] Address: [address] [place] [address], [id number] Email: [email or web address] Physical Therapy Initial Evaluation PT-OP-A Visit Information Start: 08/22/20 07:25 Freq: Status: Active Protocol: Document 08/22/20 12:15 MB (Rec: 08/22/20 12:47 MB [id number]) Out-Patient Physical Therapy Visit Information Visit Information Visit Type Initial Evaluation Visit Start Time 12:15 Visit Stop Time 13:00 Total Visit Minutes 45 Visit Number 1 Evaluation Information Evaluation Date 08/22/20 PT-OP-B Current Condition Start: 08/22/20 07:25 Freq: Status: Active Protocol: Document 08/22/20 12:15 MB (Rec: 08/22/20 12:47 MB [id number]) Current Condition History of Current Condition Onset Date Tuesday08/20/2020 Current Complaints Dizziness with looking and going down to the left History of Current Condition Pt reports that she had a frontal headache on Tuesday and then morning when she woke up, she went on her left side and the room was spinning. She went to the doctor and he checked her for BPPV and she got dizzy with going down to the left and did not got get treated. She got Meclizine and took it yesterday at [address] IAC bilaterally this morning and it was negative. She had to lie face down in face hole and her chin was up. She also had an image on her back. Pt reports 4-5/10 frontal headache today. She has not take Motrin that she usually does. She usually is on top of her water. She usually drinks 1-2 cups of coffee in the morning. She drinks 1-2 glasses of wine a night. Pt denies changes in vision, numbness, tingling. She does report neck tension. Nausea is better when she is not spinny. She slept on her right side or back last night. Pt reports that at night, she has left shoulder pain. She has pain lying on her left side. She has an order for shoulder and back pain. She reports an injury in June doing crossfit and she had a back injury when doing a hand stand and walking. Pt denies: numbness/tingling, vision changes, history concussion, performance of sit -ups, anemia, weakness, hearing change, sinus/allergy issues, trouble swallowing, recent overhead lifting, B12 deficiency, eye pressure changes, roaring/ringing in the ears, history of whiplash injury, chiropractor treatment , TMJ problems. Pt does report that her left ear feels different with regard to pressure and that she has headache as described above. Treatment Goals Patient/Caregiver Goals We just want her to have someone to contact immediately when she has her symptoms and not a couple of days later. (Cayden, pt's ). Pt: To help the spinning stop . PT-OP-C Subjective Start: 08/22/20 07:25 Freq: Status: Active Protocol: Document 08/22/20 12:15 MB (Rec: 08/22/20 16:04 MB [id number]) OP-PT Subjective Patient Comments Patient Comments See history of current condition Patient Reported Progress Improving Patient Questionnaires Dizziness Handicap Inventory DHI Score 70 DHI Functional Impairment 60 to 79% Impaired (Score 60- 79) PT-OP-J Posture/Palpation/Skin Start: 08/22/20 07:25 Freq: Status: Active Protocol: Document 08/22/20 12:15 MB (Rec: 08/22/20 16:10 MB [id number]) Posture Evaluation Comments Posture Comments Forward head, rounded shoulders. Pt presents with increased tension B SCM, upper traps, greater on the left shoulder rotators, deltoids. Pt reports tenderness lateral deltoid and left wrist extensors. PT-OP-K Range of Motion Start: 08/22/20 07:25 Freq: Status: Active Protocol: Document 08/22/20 12:15 MB (Rec: 08/22/20 16:04 MB [id number]) Shoulder Goniometric Range of Motion Shoulder Active Shoulder ROM WFL Yes Testing Position Sitting PT-OP-M Strength Start: 08/22/20 07:25 Freq: Status: Active Protocol: Document 08/22/20 12:15 MB (Rec: 08/22/20 16:04 MB [id number]) Shoulder Strength Shoulder Manual Muscle Testing Right Flexion 5 Normal Abduction (C5) 5 Normal Left Flexion 5 Normal Abduction (C5) 5 Normal Elbow/Forearm Strength Elbow and Forearm Manual Muscle Testing Right Flexion (C6) 5 Normal Extension (C7) 5 Normal Left Flexion (C6) 5 Normal Extension (C7) 5 Normal PT-OP-O Vestibular Start: 08/22/20 07:25 Freq: Status: Active Protocol: Document 08/22/20 12:15 MB (Rec: 08/22/20 16:04 MB [id number]) Vestibular Assessment Visual Testing Smooth Pursuits Horizontal Normal Smooth Pursuits Vertical Normal Saccades Horizontal Normal Gaze Evoked Nystagmus With Fixation Negative Convergence Test Unequal Spontaneous Nystagmus Negative Positional Testing [place]-Hallpike Negative Left,Negative Right Rolling Test Negative Left,Negative Right Comments Vestibular Comments Decreased pupil reactivity on the left Rapid supination and pronation normal, finger to nose B normal PT-OP-Q Treatments Start: 08/22/20 07:25 Freq: Status: Active Protocol: Document 08/22/20 12:15 MB (Rec: 08/22/20 16:04 MB [id number]) Self-Care/Home Management Treatment Education Other Education Education to pt and her , Cayden, about benefits of continuing with PT past eval and 1 treatment (she cancelled PT last two treatment courses) in order to assess cervical spine and initiate treatment for fascial changes, tension, relaxation and posture. PT describes inner ear using stick inserter for photos, benefits of contour pillow for neck and shoulder, pillow between arms for shoulder support, pillow under thorax, postural awareness. Encouraged pt and to take note of any forward posturing at home with pt interactions with kids, computer, phone, etc. PT-OP-T Assessment and Plan Start: 08/22/20 07:25 Freq: Status: Active Protocol: Document 08/22/20 12:15 MB (Rec: 08/22/20 16:28 MB [id number]) Physical Therapy Assessment Rehab Potential Rehabilitation Potential Fair Evaluation Complexity Number of Personal Factors/Comorbidities 1-2 Number of Body Systems Impaired 1-2 Clinical Presentation at Evaluation Evolving Impairments Impairments Activity Tolerance,Balance, Pain,Posture,Soft Tissue Mobility,Vestibular,Visual Motor Other Impairments Personal factors include anxiety, poor continuation with PT care the last two PT durations (only came to eval and one treatment and then stopped treatment), questionable posture at home with caring for children, increased stress at home at this time. Goals 3 Alf Goal (LTG) Pt will perform WNLs on a standardized balance test to improve overall quality of life by 10/09/2020. LTG Duration 6 weeks Two Alf Goal (LTG) Pt will present with an improved DHI to reflect no more than 5% symptoms to improve quality of life by . LTG Duration 6 weeks One Programmer Goal (LTG) Pt will perform progressive HEP with I including vestibular, cervical flexibility, postural, relaxation and balance exercises to decrease headaches and dizziness by . LTG Duration 6 weeks Assessment Summary Assessment Pt is a 40 y/o female presenting with reports of acute onset of dizziness when rolling to the left two nights ago. She is very anxious and arrives with her . They express wishing to have help immediately when she has symptoms and are frustrated with having to call doctor, go to doctor, get order and then schedule PT. Pt emails this and another vestibular PT at this clinic yesterday before evaluation today to inquire about CT ordered by Dr. Cervantes . PT communicates that since PT has not seen pt since December 2019, that PT could not make a truly helpful comment about the CT. The CT internal auditory canal was negative and this PT cannot determine what the purpose of this test was from the doctor note yesterday. PT educates pt and that pt cancelled previous PT courses after 1 treatment and this did not allow full PT work-up regarding cervical spine and any other contributory factors to her symptoms. Today, BPPV testing is negative. Neuro screens for coordination are negative. She does report some changes in pressure in her left ear and denies tinnitus. Her left pupil does not react to pen light in dark room today. She decribes dizziness with looking to the left and moving to the left. Pt does also report left shoulder pain and presents with myofascial changes around her left shoulder. PT's overall impression is that pt has cervical myofascial, postural, and autonomic nervous system components to her headache, shoulder pain and dizziness. Cervical vasculature cannot be ruled out currently d/t left pupil less reactive and dizziness with looking and moving less. Of note, when PT has pt's head and neck supported with pillow and towel roll support and finishes educating pt, pt does report that she has less dizziness than when she arrived to appointment. She may benefit from possible counseling consult in the future to address her reports of stress factors contributing to symptoms. She will benefit from PT to address cervical, myofascial, VOR, relaxation components to presentation and PT can initiate parasympathetic intervention via Counterstrain and breathing and other relaxation exercises. Barriers include her stopping previous PT courses (2 over 3 years) after 1 treatment. Unsure if pt buys into the benefits of sticking with PT this course to address underlying cervical and autonomic nervous symptom issues. Physical Therapy Plan Frequency and Duration Frequency of Treatment 2x/Week Duration of Treatment 8 weeks Plan of Care Start Date 08/22/20 Plan of Care End Date 10/09/20 Therapeutic Interventions Therapeutic Interventions Balance Training,Canalithic Repositioning,Home Exercise Program,Joint Mobilizations, Manual Therapy,Neuromuscular Re-education,Patient/Caregiver Education,Self-Care/Home Management,Sensory Integration ,Soft Tissue Mobilization, Taping,Therapeutic Activities, Therapeutic Exercises, Vestibular Rehabilitation Modalities Cold Pack/Ice Massage,Electric Stimulation,Hot Packs, Ultrasound Next Visit Focus/Plan Next Note Type Treatment Note Next Visit Plan Consider teaching breathing exercises, self-massage with racquet ball, other stretches, intiate Counterstrain
--- NOTE | 2020-08-26 09:52 | PT.OTN ---
Current Diagnoses Benign paroxysmal vertigo, unspecified ear (08/26/20) Pain in unspecified shoulder (08/26/20) Dorsalgia, unspecified (08/26/20) Physical Therapy Treatment Note PT-OP-A Visit Information Start: 08/22/20 07:25 Freq: Status: Active Protocol: Document 08/26/20 09:01 MB (Rec: 08/26/20 09:52 MB [id number]) Out-Patient Physical Therapy Visit Information Visit Information Visit Type Treatment Note Visit Start Time 09:01 Visit Stop Time 09:45 Total Visit Minutes 44 Visit Number 2 PT-OP-B Current Condition Start: 08/22/20 07:25 Freq: Status: Active Protocol: Document 08/22/20 12:15 MB (Rec: 08/22/20 12:47 MB [id number]) Current Condition History of Current Condition Onset Date Tuesday08/20/2020 Current Complaints Dizziness with looking and going down to the left History of Current Condition Pt reports that she had a frontal headache on Tuesday and then morning when she woke up, she went on her left side and the room was spinning. She went to the doctor and he checked her for BPPV and she got dizzy with going down to the left and did not got get treated. She got Meclizine and took it yesterday at [address] IAC bilaterally this morning and it was negative. She had to lie face down in face hole and her chin was up. She also had an image on her back. Pt reports 4-5/10 frontal headache today. She has not take Motrin that she usually does. She usually is on top of her water. She usually drinks 1-2 cups of coffee in the morning. She drinks 1-2 glasses of wine a night. Pt denies changes in vision, numbness, tingling. She does report neck tension. Nausea is better when she is not spinny. She slept on her right side or back last night. Pt reports that at night, she has left shoulder pain. She has pain lying on her left side. She has an order for shoulder and back pain. She reports an injury in June doing crossfit and she had a back injury when doing a hand stand and walking. Pt denies: numbness/tingling, vision changes, history concussion, performance of sit -ups, anemia, weakness, hearing change, sinus/allergy issues, trouble swallowing, recent overhead lifting, B12 deficiency, eye pressure changes, roaring/ringing in the ears, history of whiplash injury, chiropractor treatment , TMJ problems. Pt does report that her left ear feels different with regard to pressure and that she has headache as described above. Treatment Goals Patient/Caregiver Goals We just want her to have someone to contact immediately when she has her symptoms and not a couple of days later. (Cayden, pt's ). Pt: To help the spinning stop . PT-OP-C Subjective Start: 08/22/20 07:25 Freq: Status: Active Protocol: Document 08/26/20 09:01 MB (Rec: 08/26/20 09:52 MB [id number]) OP-PT Subjective Patient Comments Patient Comments I still have some dizziness during the day and that's not typically what I have when I recover. The left side of my neck is tight today. Pt reports that she has some headache still and did not like the towel roll support but is looking into the contour pillow. PT-OP-J Posture/Palpation/Skin Start: 08/22/20 07:25 Freq: Status: Active Protocol: Document 08/22/20 12:15 MB (Rec: 08/22/20 16:10 MB [id number]) Posture Evaluation Comments Posture Comments Forward head, rounded shoulders. Pt presents with increased tension B SCM, upper traps, greater on the left shoulder rotators, deltoids. Pt reports tenderness lateral deltoid and left wrist extensors. PT-OP-K Range of Motion Start: 08/22/20 07:25 Freq: Status: Active Protocol: Document 08/22/20 12:15 MB (Rec: 08/22/20 16:04 MB [id number]) Shoulder Goniometric Range of Motion Shoulder Active Shoulder ROM WFL Yes Testing Position Sitting PT-OP-M Strength Start: 08/22/20 07:25 Freq: Status: Active Protocol: Document 08/22/20 12:15 MB (Rec: 08/22/20 16:04 MB [id number]) Shoulder Strength Shoulder Manual Muscle Testing Right Flexion 5 Normal Abduction (C5) 5 Normal Left Flexion 5 Normal Abduction (C5) 5 Normal Elbow/Forearm Strength Elbow and Forearm Manual Muscle Testing Right Flexion (C6) 5 Normal Extension (C7) 5 Normal Left Flexion (C6) 5 Normal Extension (C7) 5 Normal PT-OP-O Vestibular Start: 08/22/20 07:25 Freq: Status: Active Protocol: Document 08/22/20 12:15 MB (Rec: 08/22/20 16:04 MB [id number]) Vestibular Assessment Visual Testing Smooth Pursuits Horizontal Normal Smooth Pursuits Vertical Normal Saccades Horizontal Normal Gaze Evoked Nystagmus With Fixation Negative Convergence Test Unequal Spontaneous Nystagmus Negative Positional Testing [place]-Hallpike Negative Left,Negative Right Rolling Test Negative Left,Negative Right Comments Vestibular Comments Decreased pupil reactivity on the left Rapid supination and pronation normal, finger to nose B normal PT-OP-Q Treatments Start: 08/22/20 07:25 Freq: Status: Active Protocol: Document 08/26/20 09:01 MB (Rec: 08/26/20 09:52 MB [id number]) Therapeutic Exercises Supine Exercises Diaphragm breathing Comments Taught in standing today before BPPV testing Standing Exercises MWM for upper traps Side bilateral Equipment Used Back fence builder II Comments Focus on the left, hold TrP and pt performs active cervical rotation away Infraspinatus MWM Side bilateral Equipment Used Racquet ball Comments Active ER and IR with TrP pressure Racquet ball massage, intrascapular area, thoracic mobs with ball and MWM with cervical rotation Side left Equipment Used Racquet ball Comments Pt performs with ed PT-OP-T Assessment and Plan Start: 08/22/20 07:25 Freq: Status: Active Protocol: Document 08/26/20 09:01 MB (Rec: 08/26/20 09:52 MB [id number]) Physical Therapy Assessment Rehab Potential Rehabilitation Potential Fair Evaluation Complexity Number of Personal Factors/Comorbidities 1-2 Number of Body Systems Impaired 1-2 Clinical Presentation at Evaluation Evolving Impairments Impairments Activity Tolerance,Balance, Pain,Posture,Soft Tissue Mobility,Vestibular,Visual Motor Other Impairments Personal factors include anxiety, poor continuation with PT care the last two PT durations (only came to eval and one treatment and then stopped treatment), questionable posture at home with caring for children, increased stress at home at this time. Goals 3 Residential Goal (LTG) Pt will perform WNLs on a standardized balance test to improve overall quality of life by 10/09/2020. LTG Duration 6 weeks Two Residential Goal (LTG) Pt will present with an improved DHI to reflect no more than 5% symptoms to improve quality of life by . LTG Duration 6 weeks One Residential Goal (LTG) Pt will perform progressive HEP with I including vestibular, cervical flexibility, postural, relaxation and balance exercises to decrease headaches and dizziness by . LTG Duration 6 weeks Assessment Summary Assessment Pt with negative BPPV testing again today. Initiated self- myofascial work and breathing exercises. Pt to see Dr. Conroy today for ongoing work on her back vs starting care on her neck. Con't relaxation exercises and soft tissue intervention to address cervical and autonomic system contributions to symptoms. She con't with increased stress with home life and about history of BPPV. Physical Therapy Plan Frequency and Duration Frequency of Treatment 2x/Week Duration of Treatment 8 weeks Plan of Care Start Date 08/22/20 Plan of Care End Date 10/09/20 Therapeutic Interventions Therapeutic Interventions Balance Training,Canalithic Repositioning,Home Exercise Program,Joint Mobilizations, Manual Therapy,Neuromuscular Re-education,Patient/Caregiver Education,Self-Care/Home Management,Sensory Integration ,Soft Tissue Mobilization, Taping,Therapeutic Activities, Therapeutic Exercises, Vestibular Rehabilitation Modalities Cold Pack/Ice Massage,Electric Stimulation,Hot Packs, Ultrasound Next Visit Focus/Plan Next Note Type Treatment Note Next Visit Plan Consider SCM work and ed on self-massage. Consider further relaxation exercises, intiate Counterstrain
--- NOTE | 2020-08-29 09:50 | PT.OTN ---
Current Diagnoses Benign paroxysmal vertigo, unspecified ear (08/29/20) Pain in unspecified shoulder (08/29/20) Dorsalgia, unspecified (08/29/20) Physical Therapy Treatment Note PT-OP-A Visit Information Start: 08/22/20 07:25 Freq: Status: Active Protocol: Document 08/29/20 09:02 MB (Rec: 08/29/20 09:48 MB [id number]) Out-Patient Physical Therapy Visit Information Visit Information Visit Type Treatment Note Visit Start Time 09:02 Visit Stop Time 09:45 Total Visit Minutes 43 Visit Number 3 PT-OP-B Current Condition Start: 08/22/20 07:25 Freq: Status: Active Protocol: Document 08/22/20 12:15 MB (Rec: 08/22/20 12:47 MB [id number]) Current Condition History of Current Condition Onset Date Tuesday08/20/2020 Current Complaints Dizziness with looking and going down to the left History of Current Condition Pt reports that she had a frontal headache on Tuesday and then morning when she woke up, she went on her left side and the room was spinning. She went to the doctor and he checked her for BPPV and she got dizzy with going down to the left and did not got get treated. She got Meclizine and took it yesterday at [address] IAC bilaterally this morning and it was negative. She had to lie face down in face hole and her chin was up. She also had an image on her back. Pt reports 4-5/10 frontal headache today. She has not take Motrin that she usually does. She usually is on top of her water. She usually drinks 1-2 cups of coffee in the morning. She drinks 1-2 glasses of wine a night. Pt denies changes in vision, numbness, tingling. She does report neck tension. Nausea is better when she is not spinny. She slept on her right side or back last night. Pt reports that at night, she has left shoulder pain. She has pain lying on her left side. She has an order for shoulder and back pain. She reports an injury in June doing crossfit and she had a back injury when doing a hand stand and walking. Pt denies: numbness/tingling, vision changes, history concussion, performance of sit -ups, anemia, weakness, hearing change, sinus/allergy issues, trouble swallowing, recent overhead lifting, B12 deficiency, eye pressure changes, roaring/ringing in the ears, history of whiplash injury, chiropractor treatment , TMJ problems. Pt does report that her left ear feels different with regard to pressure and that she has headache as described above. Treatment Goals Patient/Caregiver Goals We just want her to have someone to contact immediately when she has her symptoms and not a couple of days later. (Cayden, pt's ). Pt: To help the spinning stop . PT-OP-C Subjective Start: 08/22/20 07:25 Freq: Status: Active Protocol: Document 08/29/20 09:02 MB (Rec: 08/29/20 09:48 MB [id number]) OP-PT Subjective Patient Comments Patient Comments I feel more hope after working with you and Dr. Conroy. Pt got treatment from Dr. Conroy after PT . PT-OP-J Posture/Palpation/Skin Start: 08/22/20 07:25 Freq: Status: Active Protocol: Document 08/22/20 12:15 MB (Rec: 08/22/20 16:10 MB [id number]) Posture Evaluation Comments Posture Comments Forward head, rounded shoulders. Pt presents with increased tension B SCM, upper traps, greater on the left shoulder rotators, deltoids. Pt reports tenderness lateral deltoid and left wrist extensors. PT-OP-K Range of Motion Start: 08/22/20 07:25 Freq: Status: Active Protocol: Document 08/22/20 12:15 MB (Rec: 08/22/20 16:04 MB [id number]) Shoulder Goniometric Range of Motion Shoulder Active Shoulder ROM WFL Yes Testing Position Sitting PT-OP-M Strength Start: 08/22/20 07:25 Freq: Status: Active Protocol: Document 08/22/20 12:15 MB (Rec: 08/22/20 16:04 MB [id number]) Shoulder Strength Shoulder Manual Muscle Testing Right Flexion 5 Normal Abduction (C5) 5 Normal Left Flexion 5 Normal Abduction (C5) 5 Normal Elbow/Forearm Strength Elbow and Forearm Manual Muscle Testing Right Flexion (C6) 5 Normal Extension (C7) 5 Normal Left Flexion (C6) 5 Normal Extension (C7) 5 Normal PT-OP-O Vestibular Start: 08/22/20 07:25 Freq: Status: Active Protocol: Document 08/22/20 12:15 MB (Rec: 08/22/20 16:04 MB [id number]) Vestibular Assessment Visual Testing Smooth Pursuits Horizontal Normal Smooth Pursuits Vertical Normal Saccades Horizontal Normal Gaze Evoked Nystagmus With Fixation Negative Convergence Test Unequal Spontaneous Nystagmus Negative Positional Testing [place]-Hallpike Negative Left,Negative Right Rolling Test Negative Left,Negative Right Comments Vestibular Comments Decreased pupil reactivity on the left Rapid supination and pronation normal, finger to nose B normal PT-OP-Q Treatments Start: 08/22/20 07:25 Freq: Status: Active Protocol: Document 08/29/20 09:02 MB (Rec: 08/29/20 09:48 MB [id number]) Therapeutic Exercises Supine Exercises Self-massage and MWM B SCM Comments Pt hook lying with head and neck support EFT Comments Performed all points and provided handout Diaphragm breathing Comments Hook lying with cervical and head support Manual Therapy Treatment Soft Tissue Mobilization 1 Comments MWM with pt performing active cervical rotation with head and neck supported and PT performing TrP pressure Self-Care/Home Management Treatment Education Other Education Take time 2x/day for self-care and exercises, alone in room with head and neck supported, ideas for incorporating EFT with hers and kids' routine, log rolling technique and breathing PT-OP-T Assessment and Plan Start: 08/22/20 07:25 Freq: Status: Active Protocol: Document 08/29/20 09:02 MB (Rec: 08/29/20 09:48 MB [id number]) Physical Therapy Assessment Rehab Potential Rehabilitation Potential Fair Evaluation Complexity Number of Personal Factors/Comorbidities 1-2 Number of Body Systems Impaired 1-2 Clinical Presentation at Evaluation Evolving Impairments Impairments Activity Tolerance,Balance, Pain,Posture,Soft Tissue Mobility,Vestibular,Visual Motor Other Impairments Personal factors include anxiety, poor continuation with PT care the last two PT durations (only came to eval and one treatment and then stopped treatment), questionable posture at home with caring for children, increased stress at home at this time. Goals 3 Surgical Brace Maker Goal (LTG) Pt will perform WNLs on a standardized balance test to improve overall quality of life by 10/09/2020. LTG Duration 6 weeks Two Surgical Brace Maker Goal (LTG) Pt will present with an improved DHI to reflect no more than 5% symptoms to improve quality of life by . LTG Duration 6 weeks One Surgical Brace Maker Goal (LTG) Pt will perform progressive HEP with I including vestibular, cervical flexibility, postural, relaxation and balance exercises to decrease headaches and dizziness by . LTG Duration 6 weeks Assessment Summary Assessment Pt arrives with tearfulness and anxiety about current life situation with her kids going back to having to have school at home, possible lay-off of and no self-time. She has several calls during treatment. 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 She currently has 2 more PT appointments and PT encourages her to make more. Con't with relaxation, self- care to address symptoms. Physical Therapy Plan Frequency and Duration Frequency of Treatment 2x/Week Duration of Treatment 8 weeks Plan of Care Start Date 08/22/20 Plan of Care End Date 10/09/20 Therapeutic Interventions Therapeutic Interventions Balance Training,Canalithic Repositioning,Home Exercise Program,Joint Mobilizations, Manual Therapy,Neuromuscular Re-education,Patient/Caregiver Education,Self-Care/Home Management,Sensory Integration ,Soft Tissue Mobilization, Taping,Therapeutic Activities, Therapeutic Exercises, Vestibular Rehabilitation Modalities Cold Pack/Ice Massage,Electric Stimulation,Hot Packs, Ultrasound Next Visit Focus/Plan Next Note Type Treatment Note Next Visit Plan Consider progressive muscle relaxation and B[place]yko breathing
--- NOTE | 2020-09-08 08:13 | PT.OTN ---
Current Diagnoses Benign paroxysmal vertigo, unspecified ear (09/08/20) Pain in unspecified shoulder (09/08/20) Dorsalgia, unspecified (09/08/20) Physical Therapy Treatment Note PT-OP-A Visit Information Start: 08/22/20 07:25 Freq: Status: Active Protocol: Document 09/08/20 07:32 MB (Rec: 09/08/20 08:13 MB [id number]) Out-Patient Physical Therapy Visit Information Visit Information Visit Type Treatment Note Visit Start Time 07:32 Visit Stop Time 08:13 Total Visit Minutes 41 Visit Number 4 PT-OP-B Current Condition Start: 08/22/20 07:25 Freq: Status: Active Protocol: Document 08/22/20 12:15 MB (Rec: 08/22/20 12:47 MB [id number]) Current Condition History of Current Condition Onset Date Tuesday08/20/2020 Current Complaints Dizziness with looking and going down to the left History of Current Condition Pt reports that she had a frontal headache on Tuesday and then morning when she woke up, she went on her left side and the room was spinning. She went to the doctor and he checked her for BPPV and she got dizzy with going down to the left and did not got get treated. She got Meclizine and took it yesterday at [address] IAC bilaterally this morning and it was negative. She had to lie face down in face hole and her chin was up. She also had an image on her back. Pt reports 4-5/10 frontal headache today. She has not take Motrin that she usually does. She usually is on top of her water. She usually drinks 1-2 cups of coffee in the morning. She drinks 1-2 glasses of wine a night. Pt denies changes in vision, numbness, tingling. She does report neck tension. Nausea is better when she is not spinny. She slept on her right side or back last night. Pt reports that at night, she has left shoulder pain. She has pain lying on her left side. She has an order for shoulder and back pain. She reports an injury in June doing crossfit and she had a back injury when doing a hand stand and walking. Pt denies: numbness/tingling, vision changes, history concussion, performance of sit -ups, anemia, weakness, hearing change, sinus/allergy issues, trouble swallowing, recent overhead lifting, B12 deficiency, eye pressure changes, roaring/ringing in the ears, history of whiplash injury, chiropractor treatment , TMJ problems. Pt does report that her left ear feels different with regard to pressure and that she has headache as described above. Treatment Goals Patient/Caregiver Goals We just want her to have someone to contact immediately when she has her symptoms and not a couple of days later. (Cayden, pt's ). Pt: To help the spinning stop . PT-OP-C Subjective Start: 08/22/20 07:25 Freq: Status: Active Protocol: Document 09/08/20 07:32 MB (Rec: 09/08/20 08:13 MB [id number]) OP-PT Subjective Patient Comments Patient Comments I just worked out for the first time since June when I hurt my back. My back is doing better. I've been seeing Dr. Conroy and he does his magic. Pt denies dizziness . PT-OP-J Posture/Palpation/Skin Start: 08/22/20 07:25 Freq: Status: Active Protocol: Document 08/22/20 12:15 MB (Rec: 08/22/20 16:10 MB [id number]) Posture Evaluation Comments Posture Comments Forward head, rounded shoulders. Pt presents with increased tension B SCM, upper traps, greater on the left shoulder rotators, deltoids. Pt reports tenderness lateral deltoid and left wrist extensors. PT-OP-K Range of Motion Start: 08/22/20 07:25 Freq: Status: Active Protocol: Document 08/22/20 12:15 MB (Rec: 08/22/20 16:04 MB [id number]) Shoulder Goniometric Range of Motion Shoulder Active Shoulder ROM WFL Yes Testing Position Sitting PT-OP-M Strength Start: 08/22/20 07:25 Freq: Status: Active Protocol: Document 08/22/20 12:15 MB (Rec: 08/22/20 16:04 MB [id number]) Shoulder Strength Shoulder Manual Muscle Testing Right Flexion 5 Normal Abduction (C5) 5 Normal Left Flexion 5 Normal Abduction (C5) 5 Normal Elbow/Forearm Strength Elbow and Forearm Manual Muscle Testing Right Flexion (C6) 5 Normal Extension (C7) 5 Normal Left Flexion (C6) 5 Normal Extension (C7) 5 Normal PT-OP-O Vestibular Start: 08/22/20 07:25 Freq: Status: Active Protocol: Document 08/22/20 12:15 MB (Rec: 08/22/20 16:04 MB [id number]) Vestibular Assessment Visual Testing Smooth Pursuits Horizontal Normal Smooth Pursuits Vertical Normal Saccades Horizontal Normal Gaze Evoked Nystagmus With Fixation Negative Convergence Test Unequal Spontaneous Nystagmus Negative Positional Testing [place]-Hallpike Negative Left,Negative Right Rolling Test Negative Left,Negative Right Comments Vestibular Comments Decreased pupil reactivity on the left Rapid supination and pronation normal, finger to nose B normal PT-OP-Q Treatments Start: 08/22/20 07:25 Freq: Status: Active Protocol: Document 09/08/20 07:32 MB (Rec: 09/08/20 08:13 MB [id number]) Therapeutic Exercises Supine Exercises Buteyko breathing reduced breathing exercise number 1 Comments 1 rep 10 sec, sats increase 98 -99% and HR decreases from 84- 77. See assessm Manual Therapy Treatment Soft Tissue Mobilization 1 Comments MWM with pt performing active cervical rotation and PT providing TrP pressure on B SCM, anterior and middle scalenes and upper traps, grade III-IV PA mobs thoracic spine PT-OP-T Assessment and Plan Start: 08/22/20 07:25 Freq: Status: Active Protocol: Document 09/08/20 07:32 MB (Rec: 09/08/20 08:13 MB [id number]) Physical Therapy Assessment Rehab Potential Rehabilitation Potential Fair Evaluation Complexity Number of Personal Factors/Comorbidities 1-2 Number of Body Systems Impaired 1-2 Clinical Presentation at Evaluation Evolving Impairments Impairments Activity Tolerance,Balance, Pain,Posture,Soft Tissue Mobility,Vestibular,Visual Motor Other Impairments Personal factors include anxiety, poor continuation with PT care the last two PT durations (only came to eval and one treatment and then stopped treatment), questionable posture at home with caring for children, increased stress at home at this time. Goals 3 Director Of Safety Goal (LTG) Pt will perform WNLs on a standardized balance test to improve overall quality of life by 10/09/2020. LTG Duration 6 weeks Two [facility] Goal (LTG) Pt will present with an improved DHI to reflect no more than 5% symptoms to improve quality of life by . LTG Duration 6 weeks One Director Of Safety Goal (LTG) Pt will perform progressive HEP with I including vestibular, cervical flexibility, postural, relaxation and balance exercises to decrease headaches and dizziness by . LTG Duration 6 weeks Assessment Summary Assessment O2 sats 98% and HR 84 BPM before breathing exercise. Pt' s sats increase to 99% and her HR decreases to 73-78 BPM with progressive exercises. Pt can hold to 23 sec by rep 3 and 30 sec by rep 4. This is indicative of improved controlled pause and improved HRV with HR decreasing with exhalation and controlled pause. Pt with ongoing left neck tension and will benefit from further manual work and thoracic mobility. Physical Therapy Plan Frequency and Duration Frequency of Treatment 2x/Week Duration of Treatment 8 weeks Plan of Care Start Date 08/22/20 Plan of Care End Date 10/09/20 Therapeutic Interventions Therapeutic Interventions Balance Training,Canalithic Repositioning,Home Exercise Program,Joint Mobilizations, Manual Therapy,Neuromuscular Re-education,Patient/Caregiver Education,Self-Care/Home Management,Sensory Integration ,Soft Tissue Mobilization, Taping,Therapeutic Activities, Therapeutic Exercises, Vestibular Rehabilitation Modalities Cold Pack/Ice Massage,Electric Stimulation,Hot Packs, Ultrasound Next Visit Focus/Plan Next Note Type Treatment Note Next Visit Plan Consider progressive thoracic flexibility, upper cervical isometric, other relaxation exercises and strengthening.
--- NOTE | 2020-09-17 11:09 | PT.OTN ---
Current Diagnoses Benign paroxysmal vertigo, unspecified ear (09/17/20) Pain in unspecified shoulder (09/17/20) Dorsalgia, unspecified (09/17/20) Physical Therapy Treatment Note PT-OP-A Visit Information Start: 08/22/20 07:25 Freq: Status: Active Protocol: Document 09/17/20 10:31 MB (Rec: 09/17/20 11:08 MB [id number]) Out-Patient Physical Therapy Visit Information Visit Information Visit Type Treatment Note Visit Start Time 10:31 Visit Stop Time 11:09 Total Visit Minutes 38 Visit Number 5 PT-OP-B Current Condition Start: 08/22/20 07:25 Freq: Status: Active Protocol: Document 08/22/20 12:15 MB (Rec: 08/22/20 12:47 MB [id number]) Current Condition History of Current Condition Onset Date Tuesday08/20/2020 Current Complaints Dizziness with looking and going down to the left History of Current Condition Pt reports that she had a frontal headache on Tuesday and then morning when she woke up, she went on her left side and the room was spinning. She went to the doctor and he checked her for BPPV and she got dizzy with going down to the left and did not got get treated. She got Meclizine and took it yesterday at [address] IAC bilaterally this morning and it was negative. She had to lie face down in face hole and her chin was up. She also had an image on her back. Pt reports 4-5/10 frontal headache today. She has not take Motrin that she usually does. She usually is on top of her water. She usually drinks 1-2 cups of coffee in the morning. She drinks 1-2 glasses of wine a night. Pt denies changes in vision, numbness, tingling. She does report neck tension. Nausea is better when she is not spinny. She slept on her right side or back last night. Pt reports that at night, she has left shoulder pain. She has pain lying on her left side. She has an order for shoulder and back pain. She reports an injury in June doing crossfit and she had a back injury when doing a hand stand and walking. Pt denies: numbness/tingling, vision changes, history concussion, performance of sit -ups, anemia, weakness, hearing change, sinus/allergy issues, trouble swallowing, recent overhead lifting, B12 deficiency, eye pressure changes, roaring/ringing in the ears, history of whiplash injury, chiropractor treatment , TMJ problems. Pt does report that her left ear feels different with regard to pressure and that she has headache as described above. Treatment Goals Patient/Caregiver Goals We just want her to have someone to contact immediately when she has her symptoms and not a couple of days later. (Cayden, pt's ). Pt: To help the spinning stop . PT-OP-C Subjective Start: 08/22/20 07:25 Freq: Status: Active Protocol: Document 09/17/20 10:31 MB (Rec: 09/17/20 11:08 MB [id number]) OP-PT Subjective Patient Comments Patient Comments I've been doing okay. I've been treatment by Dr. Conroy and may get dry needled tomorrow. PT-OP-J Posture/Palpation/Skin Start: 08/22/20 07:25 Freq: Status: Active Protocol: Document 08/22/20 12:15 MB (Rec: 08/22/20 16:10 MB [id number]) Posture Evaluation Comments Posture Comments Forward head, rounded shoulders. Pt presents with increased tension B SCM, upper traps, greater on the left shoulder rotators, deltoids. Pt reports tenderness lateral deltoid and left wrist extensors. PT-OP-K Range of Motion Start: 08/22/20 07:25 Freq: Status: Active Protocol: Document 08/22/20 12:15 MB (Rec: 08/22/20 16:04 MB [id number]) Shoulder Goniometric Range of Motion Shoulder Active Shoulder ROM WFL Yes Testing Position Sitting PT-OP-M Strength Start: 08/22/20 07:25 Freq: Status: Active Protocol: Document 08/22/20 12:15 MB (Rec: 08/22/20 16:04 MB [id number]) Shoulder Strength Shoulder Manual Muscle Testing Right Flexion 5 Normal Abduction (C5) 5 Normal Left Flexion 5 Normal Abduction (C5) 5 Normal Elbow/Forearm Strength Elbow and Forearm Manual Muscle Testing Right Flexion (C6) 5 Normal Extension (C7) 5 Normal Left Flexion (C6) 5 Normal Extension (C7) 5 Normal PT-OP-O Vestibular Start: 11/13/20 07:25 Freq: Status: Active Protocol: Document 08/22/20 12:15 MB (Rec: 08/22/20 16:04 MB [id number]) Vestibular Assessment Visual Testing Smooth Pursuits Horizontal Normal Smooth Pursuits Vertical Normal Saccades Horizontal Normal Gaze Evoked Nystagmus With Fixation Negative Convergence Test Unequal Spontaneous Nystagmus Negative Positional Testing [place]-Hallpike Negative Left,Negative Right Rolling Test Negative Left,Negative Right Comments Vestibular Comments Decreased pupil reactivity on the left Rapid supination and pronation normal, finger to nose B normal PT-OP-Q Treatments Start: 08/22/20 07:25 Freq: Status: Active Protocol: Document 09/17/20 10:31 MB (Rec: 09/17/20 11:08 MB [id number]) Therapeutic Exercises Supine Exercises Pelvic realignment exercises Side bilateral Comments 5 reps all, 3 sec hold Abdominal drawing in exercises Supine Exercise Name Core progression Side bilateral Reps/Minutes 5 reps Comments Perform first, add knees side to side, HS, knee fall outs, mini march Standing Exercises Doorway stretches Side bilateral Comments Pect stretch, hip flexor stretch, QL and rib stretch Other Exercises Foam roller stretching and thoracic mobility Comments Abd drawing in 1st, scissors, shoulder flexion, pect stretch , diaphragm shari PT-OP-T Assessment and Plan Start: 08/22/20 07:25 Freq: Status: Active Protocol: Document 09/17/20 10:31 MB (Rec: 09/17/20 11:08 MB [id number]) Physical Therapy Assessment Rehab Potential Rehabilitation Potential Fair Evaluation Complexity Number of Personal Factors/Comorbidities 1-2 Number of Body Systems Impaired 1-2 Clinical Presentation at Evaluation Evolving Impairments Impairments Activity Tolerance,Balance, Pain,Posture,Soft Tissue Mobility,Vestibular,Visual Motor Other Impairments Personal factors include anxiety, poor continuation with PT care the last two PT durations (only came to eval and one treatment and then stopped treatment), questionable posture at home with caring for children, increased stress at home at this time. Goals 3 Advice Nurse Goal (LTG) Pt will perform WNLs on a standardized balance test to improve overall quality of life by 10/09/2020. LTG Duration 6 weeks Two [facility]idential Goal (LTG) Pt will present with an improved DHI to reflect no more than 5% symptoms to improve quality of life by . LTG Duration 6 weeks One Advice Nurse Goal (LTG) Pt will perform progressive HEP with I including vestibular, cervical flexibility, postural, relaxation and balance exercises to decrease headaches and dizziness by . LTG Duration 6 weeks Assessment Summary Assessment Initiated flexibility exercises today, core work and pelvic realignment exercises to assist with posture and pain and pt to add to her HEP. Con't manual in future treatments. Physical Therapy Plan Frequency and Duration Frequency of Treatment 2x/Week Duration of Treatment 8 weeks Plan of Care Start Date 08/22/20 Plan of Care End Date 10/09/20 Therapeutic Interventions Therapeutic Interventions Balance Training,Canalithic Repositioning,Home Exercise Program,Joint Mobilizations, Manual Therapy,Neuromuscular Re-education,Patient/Caregiver Education,Self-Care/Home Management,Sensory Integration ,Soft Tissue Mobilization, Taping,Therapeutic Activities, Therapeutic Exercises, Vestibular Rehabilitation Modalities Cold Pack/Ice Massage,Electric Stimulation,Hot Packs, Ultrasound Next Visit Focus/Plan Next Note Type Treatment Note Next Visit Plan Progress pelvic drop and other flexibility exercises to assist with spinal pain and relaxation
--- NOTE | 2020-10-09 11:02 | PT.OPDS ---
Current Diagnoses Benign paroxysmal vertigo, unspecified ear (09/17/20) Pain in unspecified shoulder (09/17/20) Dorsalgia, unspecified (09/17/20) Visit Care Team Role Provider Type Martin Conroy DO Primary Care Provider Physician Specialty: [facility] Address: [address] [place] [address], [id number] Email: Myron Cervantes MD Attending Provider Physician Referring Provider Specialty: [facility] Address: [address] [place] [address], [id number] Email: [email or web address] Visit Number Visit Number 5 Discharge Summary PT-OP-B Current Condition Start: 08/22/20 07:25 Freq: Status: Active Protocol: Document 08/22/20 12:15 MB (Rec: 08/22/20 12:47 MB [id number]) Current Condition History of Current Condition Onset Date Tuesday08/20/2020 Current Complaints Dizziness with looking and going down to the left History of Current Condition Pt reports that she had a frontal headache on Tuesday and then morning when she woke up, she went on her left side and the room was spinning. She went to the doctor and he checked her for BPPV and she got dizzy with going down to the left and did not got get treated. She got Meclizine and took it yesterday at [address] IAC bilaterally this morning and it was negative. She had to lie face down in face hole and her chin was up. She also had an image on her back. Pt reports 4-5/10 frontal headache today. She has not take Motrin that she usually does. She usually is on top of her water. She usually drinks 1-2 cups of coffee in the morning. She drinks 1-2 glasses of wine a night. Pt denies changes in vision, numbness, tingling. She does report neck tension. Nausea is better when she is not spinny. She slept on her right side or back last night. Pt reports that at night, she has left shoulder pain. She has pain lying on her left side. She has an order for shoulder and back pain. She reports an injury in June doing crossfit and she had a back injury when doing a hand stand and walking. Pt denies: numbness/tingling, vision changes, history concussion, performance of sit -ups, anemia, weakness, hearing change, sinus/allergy issues, trouble swallowing, recent overhead lifting, B12 deficiency, eye pressure changes, roaring/ringing in the ears, history of whiplash injury, chiropractor treatment , TMJ problems. Pt does report that her left ear feels different with regard to pressure and that she has headache as described above. Treatment Goals Patient/Caregiver Goals We just want her to have someone to contact immediately when she has her symptoms and not a couple of days later. (Cayden, pt's ). Pt: To help the spinning stop . PT-OP-C Subjective Start: 08/22/20 07:25 Freq: Status: Active Protocol: Document 09/17/20 10:31 MB (Rec: 09/17/20 11:08 MB [id number]) OP-PT Subjective Patient Comments Patient Comments I've been doing okay. I've been treatment by Dr. Conroy and may get dry needled tomorrow. PT-OP-J Posture/Palpation/Skin Start: 08/22/20 07:25 Freq: Status: Active Protocol: Document 08/22/20 12:15 MB (Rec: 08/22/20 16:10 MB [id number]) Posture Evaluation Comments Posture Comments Forward head, rounded shoulders. Pt presents with increased tension B SCM, upper traps, greater on the left shoulder rotators, deltoids. Pt reports tenderness lateral deltoid and left wrist extensors. PT-OP-K Range of Motion Start: 08/22/20 07:25 Freq: Status: Active Protocol: Document 08/22/20 12:15 MB (Rec: 08/22/20 16:04 MB [id number]) Shoulder Goniometric Range of Motion Shoulder Active Shoulder ROM WFL Yes Testing Position Sitting PT-OP-M Strength Start: 08/22/20 07:25 Freq: Status: Active Protocol: Document 08/22/20 12:15 MB (Rec: 08/22/20 16:04 MB [id number]) Shoulder Strength Shoulder Manual Muscle Testing Right Flexion 5 Normal Abduction (C5) 5 Normal Left Flexion 5 Normal Abduction (C5) 5 Normal Elbow/Forearm Strength Elbow and Forearm Manual Muscle Testing Right Flexion (C6) 5 Normal Extension (C7) 5 Normal Left Flexion (C6) 5 Normal Extension (C7) 5 Normal PT-OP-O Vestibular Start: 08/22/20 07:25 Freq: Status: Active Protocol: Document 08/22/20 12:15 MB (Rec: 08/22/20 16:04 MB [id number]) Vestibular Assessment Visual Testing Smooth Pursuits Horizontal Normal Smooth Pursuits Vertical Normal Saccades Horizontal Normal Gaze Evoked Nystagmus With Fixation Negative Convergence Test Unequal Spontaneous Nystagmus Negative Positional Testing Ayan-Hallpike Negative Left,Negative Right Rolling Test Negative Left,Negative Right Comments Vestibular Comments Decreased pupil reactivity on the left Rapid supination and pronation normal, finger to nose B normal PT-OP-T Assessment and Plan Start: 08/22/20 07:25 Freq: Status: Active Protocol: Document 10/09/20 11:00 MB (Rec: 10/09/20 11:00 MB [id number]) Physical Therapy Plan Discharge Physical Therapy Discharge Reasons No Longer Attending PT Discharge Comments Pt has cancelled several PT appointments and no more scheduled appointments. This is similar to previous two PT courses. PT had educated pt in importance of being consistent and compliant with PT this treatment course. At last treatment, pt was feeling better and PT progressed HEP. She also reported feeling a lot better with seeing Dr. Conroy. Jonathan d/c PT.
== END 2020-10-17 14:58 ==
LOC: PHYS 10:30
PROVIDERS: PCP Family Medicine; Referring Provider Family Medicine; Visit Provider Family Medicine
DX: H81.10 Benign paroxysmal vertigo, unspecified ear (principal); M54.9 Dorsalgia, unspecified; M25.519 Pain in unspecified shoulder
CPT/HCPCS: 97110; 97140; 97162; 97535

== ENCOUNTER → 2021-09-18 09:09 | Outpatient (CLI) | payer BC, SELFPAY ==
[2021-09-18 10:56] LABS: Add Manual Diff / Slide Review NO; Basophils Absolute Auto 0 /uL (0-100); Basophils Percent Auto 0.6 % (0-2); Eosinophils Absolute Auto 100 /uL (0-450); Eosinophils Percent Auto 0.9 % (2-4); Hematocrit 38.6 % (36-46); Hemoglobin 12.7 g/dL (12.0-16.0); Lymphocytes Absolute Auto 1800 /uL (1100-4500); Mean Corpuscular Hemoglobin 30.6 PG (26-34); Mean Corpuscular Volume 92.7 fL (80-100); Monocytes Absolute Auto 600 /uL (0-900); Monocytes Percent Auto 9.2 % (3-14); Neutrophils Absolute Auto 3600 /uL (1500-7000); Neutrophils Percent Auto 59.3 % (50-75); Platelet Count 220 X10^3/uL (150-400); Red Blood Cell Count 4.16 X10^6/uL (4.0-5.2); Red Cell Distribution Width 12.6 % (11.6-14.8); White Blood Cell Count 6.1 X10^3/uL (4.5-11.0)
[2021-09-18 11:10] LABS: Alanine Aminotransferase 9 IU/L (<35); Albumin 4.3 g/dL (3.5-5.0); Albumin Globulin Ratio 1.7 (1.0-2.8); Alkaline Phosphatase 46 U/L (38-126); Aspartate Aminotransferase 27 IU/L (14-36); BUN Creatinine Ratio 18.4 (6-22); Bilirubin Total 0.4 mg/dL (0.2-1.3); Blood Urea Nitrogen 14 mg/dL (7-17); Calcium 9.4 mg/dL (8.4-10.2); Carbon Dioxide 27 mmol/L (22-32); Chloride 101 mmol/L (98-107); Estimated Glomerular Filt Rate > 60.0 mL/min (>60); Globulin 2.6 g/dL (1.7-4.1); Glucose 87 mg/dL (70-100); HEMOLYSIS < 15 (0-50); Potassium 4.1 mmol/L (3.4-5.1); Sodium 137 mmol/L (137-145); Total Protein 6.9 g/dL (6.3-8.2)
[2021-09-18 11:28] LABS: Free T3, Triiodothyronine Free 4.29 pg/mL (2.77-5.27); Free T4, Direct Thyroxine 0.68 ng/dL (0.78-2.19)
[2021-09-18 11:32] LABS: Vitamin D 25 Hydroxy (D3) 50.9 ng/mL (30.0-100.0)
[2021-09-18 11:41] LABS: Thyroid Stimulating Hormone 3.69 uIU/mL (0.47-4.68)
[2021-09-18 11:56] LABS: Vitamin B12 492 pg/mL (239-931)
== END ==
PROVIDERS: PCP Family Medicine; Referring Provider Family Medicine; Visit Provider Family Medicine
DX: E03.9 Hypothyroidism, unspecified (principal); F32.9 Major depressive disorder, single episode, unspecified; F41.9 Anxiety disorder, unspecified; R53.83 Other fatigue
CPT/HCPCS: 36415; 80053; 82306; 82607; 84439; 84443; 84481; 85025

== ENCOUNTER → 2022-01-18 09:37 | Outpatient (CLI) | payer BC, SELFPAY | PROVIDERS: PCP Family Medicine; Visit Provider Nurse Practitioner Family | DX: J02.9 Acute pharyngitis, unspecified (principal) | CPT/HCPCS: 87070 ==

== ENCOUNTER → 2022-01-22 10:21 | Outpatient (CLI) | payer BC, SELFPAY ==
[2022-01-22 12:04] LABS: Free T3, Triiodothyronine Free 3.21 pg/mL (2.77-5.27); Free T4, Direct Thyroxine 0.76 ng/dL (0.78-2.19)
[2022-01-22 12:18] LABS: Thyroid Stimulating Hormone 2.12 uIU/mL (0.47-4.68)
== END ==
PROVIDERS: PCP Family Medicine; Referring Provider Family Medicine; Visit Provider Family Medicine
DX: E03.9 Hypothyroidism, unspecified (principal)
CPT/HCPCS: 36415; 84439; 84443; 84481

== ENCOUNTER → 2022-05-26 14:52 | Outpatient (CLI) | payer BC, SELFPAY ==
[2022-05-26 16:47] LABS: Free T3, Triiodothyronine Free 4.43 pg/mL (2.77-5.27); Free T4, Direct Thyroxine 0.71 ng/dL (0.78-2.19)
[2022-05-26 17:01] LABS: Thyroid Stimulating Hormone 1.65 uIU/mL (0.47-4.68)
[2022-05-27 18:20] LABS: Anti Thyroglobulin Antibody 2.3 IU/mL (0.0-0.9); Thyroid Peroxidase Antibodies 12 IU/mL (0-34)
== END ==
PROVIDERS: PCP Family Medicine; Referring Provider Family Medicine; Visit Provider Family Medicine
DX: E03.9 Hypothyroidism, unspecified (principal); F32.9 Major depressive disorder, single episode, unspecified; R53.83 Other fatigue
CPT/HCPCS: 36415; 84439; 84443; 84481; 86376; 86800

== ENCOUNTER → 2022-05-28 12:56 | Outpatient (CLI) | payer BC, SELFPAY ==
[2022-06-02 13:01] LABS: Triiodothyronine T3 Reverse 7.9 ng/dL (9.2-24.1)
== END ==
PROVIDERS: PCP Family Medicine; Visit Provider Pediatrics
DX: E03.9 Hypothyroidism, unspecified (principal); F32.9 Major depressive disorder, single episode, unspecified; R53.83 Other fatigue
CPT/HCPCS: 84482

== ENCOUNTER → 2022-10-14 07:50 | Outpatient (CLI) | payer BC, SELFPAY ==
[2022-10-14 09:08] LABS: Add Manual Diff / Slide Review NO; Basophils Absolute Auto 0 /uL (0-100); Basophils Percent Auto 0.6 % (0-2); Eosinophils Absolute Auto 100 /uL (0-450); Eosinophils Percent Auto 1.8 % (2-4); Hematocrit 42.1 % (36-46); Hemoglobin 13.7 g/dL (12.0-16.0); Lymphocytes Absolute Auto 1500 /uL (1100-4500); Lymphocytes Percent Auto 28.3 % (25-40); Mean Corpuscular HGB Conc 32.5 % (30-36); Mean Corpuscular Hemoglobin 30.1 PG (26-34); Mean Corpuscular Volume 92.5 fL (80-100); Monocytes Absolute Auto 400 /uL (0-900); Neutrophils Absolute Auto 3200 /uL (1500-7000); Neutrophils Percent Auto 61.3 % (50-75); Platelet Count 256 X10^3/uL (150-400); Red Blood Cell Count 4.55 X10^6/uL (4.0-5.2); Red Cell Distribution Width 12.8 % (11.6-14.8); White Blood Cell Count 5.1 X10^3/uL (4.5-11.0)
[2022-10-14 09:19] LABS: Hemoglobin A1C% w Est Avg Glu 4.9 % (4.0-6.0)
[2022-10-14 09:48] LABS: Iron 143 ug/dL (37-170)
[2022-10-14 09:53] LABS: Alanine Aminotransferase 11 IU/L (<35); Albumin 4.2 g/dL (3.5-5.0); Albumin Globulin Ratio 1.3 (1.0-2.8); Alkaline Phosphatase 56 U/L (38-126); Aspartate Aminotransferase 27 IU/L (14-36); Bilirubin Total 0.7 mg/dL (0.2-1.3); Blood Urea Nitrogen 19 mg/dL (7-17); C-Reactive Protein Quant < 0.5 mg/dL (<1.0); Carbon Dioxide 26 mmol/L (22-32); Chloride 101 mmol/L (98-107); Cholesterol 137 mg/dL (140-199); Estimated Glomerular Filt Rate > 60 mL/min (>60); Gamma Glutamyl Transpeptidase 18 U/L (12-43); Globulin 3.2 g/dL (1.7-4.1); Glucose 82 mg/dL (70-100); HDL Cholesterol 64 mg/dL (40-60); HEMOLYSIS < 15 (0-50); LDL Cholesterol Calculated 60 mg/dL (<100); Lactate Dehydrogenase 165 U/L (120-246); Phosphorous 3.8 mg/dL (2.5-4.5); Potassium 4.5 mmol/L (3.4-5.1); Sodium 137 mmol/L (137-145); Total Protein 7.4 g/dL (6.3-8.2); Triglycerides 65 mg/dL (35-150); Uric Acid 4.9 mg/dL (2.5-6.2)
[2022-10-14 09:56] LABS: Vitamin D 25 Hydroxy (D3) 42.2 ng/mL (30.0-100.0)
[2022-10-14 10:06] LABS: Free T3, Triiodothyronine Free 5.25 pg/mL (2.77-5.27); Free T4, Direct Thyroxine 0.72 ng/dL (0.78-2.19)
[2022-10-14 10:20] LABS: Thyroid Stimulating Hormone 2.77 uIU/mL (0.47-4.68)
[2022-10-14 10:26] LABS: Ferritin 44 ng/mL (6-137)
[2022-10-14 10:39] LABS: Appearance Urine UA CLEAR; Bilirubin Urine UA NEGATIVE (NEGATIVE); Color Urine UA YELLOW; Glucose Urine UA NEGATIVE (Negative); Ketones Urine UA NEGATIVE (NEGATIVE); Leukocyte Esterase Urine UA TRACE (NEGATIVE); Nitrite Urine UA NEGATIVE (Negative); Occult Blood Urine UA NEGATIVE (Negative); Protein Urine UA NEGATIVE (Negative); Urobilinogen Urine UA 0.2 E.U./dL (0.2)
[2022-10-14 11:08] LABS: Bacteria Urine Few (2-10); Culture Indicated Urine Specimen Cultured; RBC Urine 0-1/HPF (0-5/HPF); Squamous Epithelial Cell Urine 1-5 /HPF (0-5/HPF); WBC Urine 0-1/HPF (0-5/HPF); pH Urine UA 6.5 (4.5-8.0)
[2022-10-15 09:27] LABS: Thyroid Peroxidase Antibodies 15 IU/mL (0-34)
[2022-10-15 15:21] LABS: Absolute CD 4 Helper 813 /uL (359-1519); Anti Thyroglobulin Antibody 1.4 IU/mL (0.0-0.9); Eosinophils 2 % (Not Estab.); Eosinophils (Absolute) 0.1 x10E3/uL (0.0-0.4); Hemacrit 41.6 % (34.0-46.6); Immature Granulocytes 0 % (Not Estab.); Lymphocytes 31 % (Not Estab.); Lymphocytes (Absolute) 1.6 x10E3/uL (0.7-3.1); MCHC 30.6 pg (26.6-33.0); MCHC 33.7 g/dL (31.5-35.7); MCV 91 fL (79-97); Monocytes 8 % (Not Estab.); Monocytes (Absolute) 0.4 x10E3/uL (0.1-0.9); Neutrophils 58 % (Not Estab.); Neutrophils (Absolute) 3.1 x10E3/uL (1.4-7.0); Percent CD 4 Pos Lymph 50.8 % (30.8-58.5); Platelets 262 x10E3/uL (150-450); RDW 11.3 % (11.7-15.4); Red Blood Cells 4.57 x10E6/uL (3.77-5.28); White Blood Cells 5.3 x10E3/uL (3.4-10.8)
[2022-10-17 21:23] LABS: Magnesium, RBC 4.6 mg/dL (4.2-6.8)
[2022-11-03 14:57] LABS: Triiodothyronine T3 Reverse 5.6
== END ==
PROVIDERS: PCP Family Medicine; Referring Provider Family Medicine; Visit Provider Family Medicine
DX: E03.9 Hypothyroidism, unspecified (principal); F41.9 Anxiety disorder, unspecified; F32.9 Major depressive disorder, single episode, unspecified; R53.83 Other fatigue
CPT/HCPCS: 36415; 80053; 80061; 81001; 82306; 82728; 82977; 83036; 83540; 83615; 83735; 84100; 84439; 84443; 84481; 84482; 84550; 85025; 86140; 86361; 86376; 86800; 87086

== ENCOUNTER → 2022-10-14 12:40 | Outpatient (CLI) | payer BC, SELFPAY ==
--- NOTE | 2022-10-14 | DI.MG.S_ITS ---
BILATERAL DIGITAL SCREENING MAMMOGRAM 3D/2D WITH CAD: 10/14/2022 CLINICAL: Routine screening. Family history of breast cancer. Comparison is made to exams dated: 09/17/2019 ultrasound and 09/17/2019 mammogram - [facility]. Both breasts are extremely dense, which lowers the sensitivity of mammography (category d />75% glandular tissue). Current study was also evaluated with a Computer Aided Detection (CAD) system. No significant masses, calcifications, or other findings are seen in either breast. There has been no significant interval change. IMPRESSION: NEGATIVE There is no mammographic evidence of malignancy. A 1 year screening mammogram is recommended. Based on Tyrer-Cuzick model (a risk assessment model), the patient's lifetime risk is 22.4% and her 10 year risk is 3.5%. If a patient has an elevated risk, a more comprehensive evaluation should be considered and/or a referral to a genetic counselor. The [place] [employer], [place] [employer], and NCCN Guidelines advise the consideration of Breast MRI as an adjunct to screening mammography in patients whose Lifetime risk to develop breast cancer is 20% or higher. This exam was interpreted at Station ID: [id number]. NOTE: For mammograms, a report in lay terms will be sent to the patient. Approximately 15% of breast malignancies will not be visualized mammographically. In the management of a palpable breast mass, a negative mammogram must not discourage biopsy of a clinically suspicious lesion. Electronically Signed By: Cayden Staley M.D., jr/sarah:10/14/2022 13:05:45 letter sent: Normal Exam ACR BI-RADS Category 1: Negative [id number]
== END ==
PROVIDERS: PCP Family Medicine; Referring Provider Family Medicine; Visit Provider Family Medicine
DX: Z12.31 Encounter for screening mammogram for malignant neoplasm of breast (principal); Z80.3 Family history of malignant neoplasm of breast
CPT/HCPCS: 77063; 77067

== ENCOUNTER → 2023-03-08 07:56 | Outpatient (CLI) | payer BC, SELFPAY ==
[2023-03-08 10:47] LABS: Free T3, Triiodothyronine Free 6.46 pg/mL (2.77-5.27); Free T4, Direct Thyroxine 0.82 ng/dL (0.78-2.19)
[2023-03-08 11:00] LABS: Thyroid Stimulating Hormone 2.56 uIU/mL (0.47-4.68)
[2023-03-09 17:39] LABS: Anti Thyroglobulin Antibody 2.5 IU/mL (0.0-0.9); Thyroid Peroxidase Antibodies <9 IU/mL (0-34)
[2023-03-15 08:36] LABS: Percent Free Testosterone 1.36 % (0.50-2.80); Testosterone Total 14.4 ng/dL (.)
[2023-03-22 13:50] LABS: Triiodothyronine T3 Reverse 13.1
== END ==
PROVIDERS: PCP Family Medicine; Referring Provider Family Medicine; Visit Provider Family Medicine
DX: Z79.890 Hormone replacement therapy (principal); E03.9 Hypothyroidism, unspecified; Z13.29 Encounter for screening for other suspected endocrine disorder; F41.9 Anxiety disorder, unspecified
CPT/HCPCS: 36415; 84402; 84403; 84439; 84443; 84481; 84482; 86376; 86800

== ENCOUNTER → 2024-07-16 11:10 | Outpatient (CLI) | payer BC, SELFPAY ==
--- NOTE | 2024-07-16 | DI.MG.S_ITS ---
BILATERAL DIGITAL SCREENING MAMMOGRAM 3D/2D WITH CAD: 07/16/2024 CLINICAL: Routine screening. Family history of breast cancer. Comparison is made to exams dated: 10/14/2022 mammogram and 09/17/2019 mammogram - [facility]. The breasts are heterogeneously dense, which may obscure small masses (category c / 51-75% glandular tissue). Current study was also evaluated with a Computer Aided Detection (CAD) system. No significant masses, calcifications, or other findings are seen in either breast. There has been no significant interval change. IMPRESSION: NEGATIVE There is no mammographic evidence of malignancy. A 1 year screening mammogram is recommended. Based on the Tyrer Cuzick model (a risk assessment model) the patient's lifetime risk is 15.3% and her 10 year risk is 2.7%. According to the ACR, ACS, and NCCN guidelines, an annual breast MRI exam along with mammogram is recommended if the patient's lifetime risk is 20% or greater. This exam was interpreted at Station ID: [id number]. NOTE: For mammograms, a report in lay terms will be sent to the patient. Approximately 15% of breast malignancies will not be visualized mammographically. In the management of a palpable breast mass, a negative mammogram must not discourage biopsy of a clinically suspicious lesion. Electronically Signed By: Salvador patel/sarah:07/16/2024 18:37:21 letter sent: Normal Exam ACR BI-RADS Category 1: Negative
== END ==
PROVIDERS: PCP Family Medicine; Referring Provider Family Medicine; Visit Provider Family Medicine
DX: Z12.31 Encounter for screening mammogram for malignant neoplasm of breast (principal); Z80.3 Family history of malignant neoplasm of breast; R92.333 Mammographic heterogeneous density, bilateral breasts
CPT/HCPCS: 77063; 77067

== ENCOUNTER → 2024-09-03 09:03 | Outpatient (CLI) | payer BC, SELFPAY ==
[2024-09-03 11:06] LABS: Free T3, Triiodothyronine Free 4.68 pg/mL (2.77-5.27); Free T4, Direct Thyroxine 0.65 ng/dL (0.78-2.19)
[2024-09-03 11:20] LABS: TSH w/ Reflex to FT4 1.95 uIU/mL (0.47-4.68)
[2024-09-04 07:39] LABS: Thyroid Peroxidase Antibodies <9 IU/mL (0-34)
== END ==
PROVIDERS: PCP Family Medicine; Referring Provider Family Medicine; Visit Provider Family Medicine
DX: E03.9 Hypothyroidism, unspecified (principal)
CPT/HCPCS: 36415; 84439; 84443; 84481; 86376

== ENCOUNTER 2025-01-22 09:00 | Outpatient (RCR) | payer BC, SELFPAY ==
--- NOTE | 2024-11-01 15:58 | PT.OIE ---
Current Diagnoses Brachial plexus disorders (11/01/24) Pain in unspecified shoulder (11/01/24) Stiffness of left shoulder, not elsewhere classified (11/01/24) Cervicalgia (11/01/24) Other specified disorders of bone, shoulder (11/01/24) Weakness (11/01/24) Past Medical History (Last Updated 09/17/24 @ 17:02 by Jennifer Rodriguez MD) Acute pain of left lower extremity Acute right-sided low back pain without sciatica Anxiety BPPV (benign paroxysmal positional vertigo) Cervical somatic dysfunction Chronic neck pain Cranial somatic dysfunction Excessive daytime sleepiness Fatigue Hormone replacement therapy Hypothyroidism (~2015) Insect bite Low testosterone level in female Lumbar region somatic dysfunction Pelvic somatic dysfunction Perimenopause Reactive depression (situational) Sacral region somatic dysfunction Sacroiliac joint stiffness Thoracic region somatic dysfunction Upper extremity somatic dysfunction Vertigo (~2016) Past Surgical History (Last Reviewed 08/21/20 @ 12:00 by Myron Cervantes MD) Anesthesia History of section History of repair of ACL Visit Care Team Role Provider Type Jennifer Rodriguez MD Attending Provider Physician Family Provider Primary Care Provider Referring Provider Specialty: [facility] Practice [employer] Address: [address] [place] [address], [facility] Fax: Email: [email or web address] Physical Therapy Initial Evaluation PT-OP-A Visit Information Start: 11/01/24 13:07 Freq: Status: Active Protocol: Document 11/01/24 13:45 NM (Rec: 11/01/24 16:19 NM [id number]) Out-Patient Physical Therapy Visit Information Visit Information Visit Type Initial Evaluation Visit Start Time 13:47 Visit Stop Time 14:30 Visit Number 1 Evaluation Information Evaluation Date 11/01/24 PT-OP-B Current Condition Start: 11/01/24 13:07 Freq: Status: Active Protocol: Document 11/01/24 13:45 NM (Rec: 11/01/24 16:19 NM [id number]) Current Condition History of Current Condition Onset Date 4 months Current Complaints warmth, pain, tingling, clicking, catching History of Current Condition Pt presents with pain in her cervical spine (L>R, midline), L scapular, and L lateral shoulder pain that radiates to her thumb. Pt's primary concern is that her thumb pops along the superior aspect when she does a bicep curl (does not occur otherwise ) and is lessened with adjusting media analyst to avoid C media analyst . Pt reports that her cervical spine pinches w/ extension, bending, and rotation. She also has a constant lump at scapula. Her pain radiates to her shoulder and thumb. Has been seeing a chiroPHILIPPE. She reports tingling constant ( feels hot), trouble sleeping. Pt lifts weight 5-6 days per week. Pt reports that her neck pain, feels pulling at base of skull, worse with extension (catches), B lateral flexion (catches), rotation. She also has tingling occurs constantly into her L arm/thumb. This occasionally wakes her at night, has to shake her hands or reposition. She is now unable to get comfortable at night, sleeps on back or R side, only to the thumb. 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 Uses ergonomic pillow. Her thumb feels like a rubber band . No injuries to thumb. Pt lifts 20-30# for most exercises at gym. Pt reports popping, clicking, locking in her L shoulder; no shoulder injuries. Originally saw for shoulder. Reports no changes in temperature, sensation, weakness PT-OP-C Subjective Start: 11/01/24 13:07 Freq: Status: Active Protocol: Document 11/01/24 13:45 NM (Rec: 11/01/24 16:19 NM [id number]) OP-PT Subjective Patient Comments Patient Comments consents to participate in PT evaluation Patient Questionnaires Neck Disability Index NDI Score 24/100 Quick Dash- Upper Extremity Quick Dash UE Score 29.5% impairment OP-PT Pain Assessment Location L shoulder Pain Location Details lateral shoulder near RTC insertion Intensity 5 Scale Used Numeric (0 - 10) Description Aching,Dull Description- Other scapular stiles Frequency Constant Pain Aggravating Factors Position,Changing Position, Sitting,Lifting cervical spine Pain Location Details L sided Intensity 7 Scale Used Numeric (0 - 10) Description Aching,Dull,Sharp Frequency Constant Pain Aggravating Factors Position,Changing Position, Activity,Exercise,Sitting Other Pain Aggravating Factors mobility Pain Alleviating Factors Massage Other Pain Alleviating Factors biofreeze, neck pillow PT-OP-E Functional Tests Start: 11/01/24 13:07 Freq: Status: Active Protocol: Document 11/01/24 13:45 NM (Rec: 11/01/24 16:19 NM [id number]) Functional Tests Apley's Scratch Test Action 1- Left clavicle Action 1- Right AC joint Action 2- Left T4 Action 2- Right T4 Action 3- Left T8 Action 3- Right T6 PT-OP-F Manual Assessment Start: 11/01/24 13:07 Freq: Status: Active Protocol: Document 11/01/24 13:45 NM (Rec: 11/01/24 16:19 NM [id number]) Manual Assessments Soft Tissue Assessment Soft Tissue Mobility Assessment Increased restrictions of pecs , cervical paraspinals, biceps , periscapulars Joint Mobility Assessment Joint Mobility Assessment Hypomobility of L GHJ, clavicle, 1st rib. Cervical spine limited by pain, especially into rotation and lateral flexion Other Manual Assessments Other Manual Assessments Thumb: no tenderness to palpation, no clicking/pain/ grinding with compression or distraction PT-OP-J Posture/Palpation/Skin Start: 11/01/24 13:07 Freq: Status: Active Protocol: Document 11/01/24 13:45 NM (Rec: 11/01/24 16:19 NM [id number]) Posture Evaluation Position Standing Head/C-Spine Posture Forward Head Shoulder Posture (L) Forward,(R) Forward,(L) Elevated Scapula Posture (L) Elevated,(L) Tipped Arm Posture (L) Internally Rotated,(R) Internally Rotated Pelvis Posture Anteriorly Tilted Palpation Assessment Location L shoulder Palpation Details Mild tenderness over clavicle, scalenes, pec, subscapularis/ lat, and long head biceps. No tenderness along rotator cuff, trapezius Redness present along midthoracic region and lower cervical following pt acupuncture cervical spine Palpation Details Increased restrictions and tenderness along paraspinals and periscapulars especially levator scapula, rhomboids, upper cervical muscles several trigger points present PT-OP-K Range of Motion Start: 11/01/24 13:07 Freq: Status: Active Protocol: Document 11/01/24 13:45 NM (Rec: 11/01/24 16:19 NM [id number]) Cervical Spine Range of Motion Cervical Spine Active Degrees Flexion 50 Extension 45 Rotation Left 45 Rotation Right 70 Lateral Flexion Left 25 Lateral Flexion Right 35 Comments pain with ext, B LF (L>R, L rot Shoulder Goniometric Range of Motion Shoulder Right Flexion 165 Abduction 160 External Rotation at 90 degrees 70 Abduction Internal Rotation Behind Back (text) T6 Left Flexion 140 Abduction 170 External Rotation at 90 degrees 60 Abduction Internal Rotation Behind Back (text) T8 PT-OP-L Special Tests Start: 11/01/24 13:07 Freq: Status: Active Protocol: Document 11/01/24 13:45 NM (Rec: 11/01/24 16:19 NM [id number]) Special Tests Cervical Spine Special Tests Cervical Rotation Lateral Flexion Test Results + Comments L rib elevation, no change paresthesia Traction Test Results + Spurling's Test Test Results + Comments L Shoulder Special Tests [place] Test Test Results - Comments no change ER or IR Yergason's Biceps Test Results - Speed's Biceps Test Results + Neural Special Tests- Upper Body Upper Limb Tension Test Test Results - Comments median, radial, ulnar nn. PT-OP-M Strength Start: 11/01/24 13:07 Freq: Status: Active Protocol: Document 11/01/24 13:45 NM (Rec: 11/01/24 16:19 NM [id number]) Shoulder Strength Shoulder Manual Muscle Testing Right Flexion 5 Normal Abduction (C5) 5 Normal Left Flexion 4- Good- Abduction (C5) 4 Good Elbow/Forearm Strength Elbow and Forearm Manual Muscle Testing Right Flexion (C6) 5 Normal Extension (C7) 5 Normal Left Flexion (C6) 5 Normal Extension (C7) 5 Normal PT-OP-Q Treatments Start: 11/01/24 13:07 Freq: Status: Active Protocol: Document 11/01/24 13:45 NM (Rec: 11/01/24 16:19 NM [id number]) Therapeutic Exercises Supine Exercises pectoralis stretch Supine Exercise Name HEP Side bilateral Reps/Minutes 60 cervical traction Equipment Used towel roll under head Reps/Minutes 2 min Comments edu can use ergonomic pillow at home; feels good stretching cervical retraction Supine Exercise Name HEP Equipment Used towel roll under head Reps/Minutes 10x3 Comments improved posterior lengthening and extension Sitting Exercises thoracic rotation Side bilateral Reps/Minutes 5 ea Comments increased pulling L pec Other Exercises self soft tissue mobilization Other Exercise Name HEP Side left Equipment Used pt hand during session Reps/Minutes 1 min Comments edu to use lacrosse ball w/ gi, no against wall per HEP photo Self-Care/Home Management Treatment Education Patient Education Joint Protection,Pain Management Other Education Recommended decrease resistance on lifting exercises that cause increased discomfort or repetitive clicking in L shoulder PT-OP-T Assessment and Plan Start: 11/01/24 13:07 Freq: Status: Active Protocol: Document 11/01/24 13:45 NM (Rec: 11/01/24 16:19 NM [id number]) Physical Therapy Assessment Rehab Potential Rehabilitation Potential Good Evaluation Complexity Number of Personal Factors/Comorbidities 1-2 Number of Body Systems Impaired 1-2 Clinical Presentation at Evaluation Stable Impairments Impairments Activity Tolerance,Functional Activities,Functional Mobility ,Gait,Integument,Pain,Posture, ROM,Sensation,Soft Tissue Mobility,Strength,Vestibular Other Concerns Age Related Concerns PMH: depression, hypothyroid; surgeries: 3 c-sections, L knee ACL/MCL/meniscus reconstructions x2 and hardware removal Barriers to Rehabilitation Pt will be traveling frequently for her daughter's soccer team Goals Three Impairment NDI 24%, Quickdash 29.5% Knitting Demonstrator Goal (LTG) Pt will decrease NDI and Quickdash scores <15% impairment in order to demonstrate improved symptom management, activity tolerance at gym, and quality of life LTG Duration 01/11/25 Two Impairment impairments in L shoulder flexion AROM 140 deg Knitting Demonstrator Goal (LTG) Pt will increase L shoulder flexion AROM to >160 deg in order to perform reaching ADLs and for better lifting form at gym LTG Duration 01/11/25 One Impairment impairments in cervical spine ROM: L lateral flex 25 deg, L rotation 45 deg Short Term Goal (STG) Pt will increase L lateral flexion >35 deg for improved cervical spine rotation STG Duration 12/27/24 Assisted Goal (LTG) Pt will increase L cervical spine rotation to at least 65 deg for improved visual scanning LTG Duration 01/11/25 Assessment Summary Assessment Pt is a 44 y.o. presenting with cervical spine, L scapular and shoulder pain, and thumb pain beginning 4 months ago; no known TRACEE but has been progressively worsening. No previous injuries. 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 She has painful limitations with cervical spine AROM, especially into L lateral flexion and rotation. Pt also has restrictions in thoracic spine mobility, L shoulder mobility at GH joint and AC jt . Pt's strength is not affected except for painful resisted L shoulder flexion. Cervical spine and shoulder pain reporoduced with palpation and compression with 3D bias; symptoms are likely radicular. Shoulder pain is reproduced with speed's test and other labral tests, indicating possible involvement of the labrum; although, pt's limitations in overall mobility likely also impact pain. Will continue to assess for TOS. PT educated pt on exam findings and plan of care. Pt would benefit from skilled PT for progressive mobility in order to improve symptom management and return to PLOF. Physical Therapy Plan Frequency and Duration Frequency of Treatment 1-2/wk Duration of treatment (weeks) 10 Plan of Care Start Date 11/01/24 Plan of Care End Date 01/11/25 Therapeutic Interventions Therapeutic Interventions Canalithic Repositioning,Gait Training,Home Exercise Program ,Joint Mobilizations,Manual Therapy,Neuromuscular Re- education,Orthotic/Prosthetic Management,Patient/Caregiver Education,Self-Care/Home Management,Sensory Integration ,Soft Tissue Mobilization, Taping,Therapeutic Activities, Therapeutic Exercises Other Therapeutic Interventions TrP Next Visit Focus/Plan Next Note Type Treatment Note Next Visit Plan [facility] screen Test ER/IR, elbow flex w/ neutral and pronation; cont cervical spine assessment w/ PA and lateral gliding Cervical spine topher., thoracic mobility and extension manual: GHJ, clavicle, ribs, ACJ
--- NOTE | 2024-11-01 15:59 | PT.OPPOC ---
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 Pt's primary concern is that her thumb pops along the superior aspect when she does a bicep curl (does not occur otherwise ) and is lessened with adjusting soil analyst to avoid C soil analyst . Pt reports that her cervical spine pinches w/ extension, bending, and rotation. She also has a constant lump at scapula. Her pain radiates to her shoulder and thumb. Has been seeing a chiroPHILIPPE. She reports tingling constant ( feels hot), trouble sleeping. Pt lifts weight 5-6 days per week. Pt reports that her neck pain, feels pulling at base of skull, worse with extension (catches), B lateral flexion (catches), rotation. She also has tingling occurs constantly into her L arm/thumb. This occasionally wakes her at night, has to shake her hands or reposition. She is now unable to get comfortable at night, sleeps on back or R side, only to the thumb. 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 Uses ergonomic pillow. Her thumb feels like a rubber band . No injuries to thumb. Pt lifts 20-30# for most exercises at gym. Pt reports popping, clicking, locking in her L shoulder; no shoulder injuries. Originally saw for shoulder. Reports no changes in temperature, sensation, weakness PT-OP-T Assessment and Plan Start: 11/01/24 13:07 Freq: Status: Active Protocol: Document 11/01/24 13:45 NM (Rec: 11/01/24 16:19 NM [id number]) Physical Therapy Assessment Rehab Potential Rehabilitation Potential Good Evaluation Complexity Number of Personal Factors/Comorbidities 1-2 Number of Body Systems Impaired 1-2 Clinical Presentation at Evaluation Stable Impairments Impairments Activity Tolerance,Functional Activities,Functional Mobility ,Gait,Integument,Pain,Posture, ROM,Sensation,Soft Tissue Mobility,Strength,Vestibular Other Concerns Age Related Concerns PMH: depression, hypothyroid; surgeries: 3 c-sections, L knee ACL/MCL/meniscus reconstructions x2 and hardware removal Barriers to Rehabilitation Pt will be traveling frequently for her daughter's soccer team Goals Three Impairment NDI 24%, Quickdash 29.5% [employer] Unified Communications Engineer Goal (LTG) Pt will decrease NDI and Quickdash scores <15% impairment in order to demonstrate improved symptom management, activity tolerance at gym, and quality of life LTG Duration 01/11/25 Two Impairment impairments in L shoulder flexion AROM 140 deg Fci Goal (LTG) Pt will increase L shoulder flexion AROM to >160 deg in order to perform reaching ADLs and for better lifting form at gym LTG Duration 01/11/25 One Impairment impairments in cervical spine ROM: L lateral flex 25 deg, L rotation 45 deg Short Term Goal (STG) Pt will increase L lateral flexion >35 deg for improved cervical spine rotation STG Duration 12/27/24 [employer] Unified Communications Engineer Goal (LTG) Pt will increase L cervical spine rotation to at least 65 deg for improved visual scanning LTG Duration 01/11/25 Assessment Summary Assessment Pt is a 44 y.o. presenting with cervical spine, L scapular and shoulder pain, and thumb pain beginning 4 months ago; no known TRACEE but has been progressively worsening. No previous injuries. 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 She has painful limitations with cervical spine AROM, especially into L lateral flexion and rotation. Pt also has restrictions in thoracic spine mobility, L shoulder mobility at GH joint and AC jt . Pt's strength is not affected except for painful resisted L shoulder flexion. Cervical spine and shoulder pain reporoduced with palpation and compression with 3D bias; symptoms are likely radicular. Shoulder pain is reproduced with speed's test and other labral tests, indicating possible involvement of the labrum; although, pt's limitations in overall mobility likely also impact pain. Will continue to assess for TOS. PT educated pt on exam findings and plan of care. Pt would benefit from skilled PT for progressive mobility in order to improve symptom management and return to PLOF. Physical Therapy Plan Frequency and Duration Frequency of Treatment 1-2/wk Duration of treatment (weeks) 10 Plan of Care Start Date 11/01/24 Plan of Care End Date 01/11/25 Therapeutic Interventions Therapeutic Interventions Canalithic Repositioning,Gait Training,Home Exercise Program ,Joint Mobilizations,Manual Therapy,Neuromuscular Re- education,Orthotic/Prosthetic Management,Patient/Caregiver Education,Self-Care/Home Management,Sensory Integration ,Soft Tissue Mobilization, Taping,Therapeutic Activities, Therapeutic Exercises Other Therapeutic Interventions TrP Next Visit Focus/Plan Next Note Type Treatment Note Next Visit Plan VA screen Test ER/IR, elbow flex w/ neutral and pronation; cont cervical spine assessment w/ PA and lateral gliding Cervical spine topher., thoracic mobility and extension manual: GHJ, clavicle, ribs, ACJ Plan of Care Dates Plan of Care Start Date 11/01/24 Plan of Care End Date 01/11/25 Electronically Signed by: Shira Perkins, PT 11/06/24 1038 If you are in agreement with this Plan of Care, please return a signed and dated copy. I have reviewed this Plan of Care and certify that the skilled therapy services above are required to meet the patient?s needs. Physician Signature Date Printed Name and Credentials Clinical Instructor Signature Printed Name and Credentials
--- NOTE | 2024-11-06 15:52 | PT.OTN ---
Current Diagnoses Brachial plexus disorders (11/06/24) Pain in unspecified shoulder (11/06/24) Stiffness of left shoulder, not elsewhere classified (11/06/24) Cervicalgia (11/06/24) Other specified disorders of bone, shoulder (11/06/24) Weakness (11/06/24) Physical Therapy Treatment Note PT-OP-A Visit Information Start: 11/01/24 13:07 Freq: Status: Active Protocol: Document 11/06/24 10:43 NM (Rec: 11/06/24 11:33 NM [id number]) Out-Patient Physical Therapy Visit Information Visit Information Visit Type Treatment Note Visit Start Time 10:45 Visit Stop Time 11:30 Visit Number 2 Evaluation Information Evaluation Date 11/01/24 PT-OP-B Current Condition Start: 11/01/24 13:07 Freq: Status: Active Protocol: Document 11/01/24 13:45 NM (Rec: 11/01/24 16:19 NM [id number]) Current Condition History of Current Condition Onset Date 4 months Current Complaints warmth, pain, tingling, clicking, catching History of Current Condition Pt presents with pain in her cervical spine (L>R, midline), L scapular, and L lateral shoulder pain that radiates to her thumb. Pt's primary concern is that her thumb pops along the superior aspect when she does a bicep curl (does not occur otherwise ) and is lessened with adjusting audio production manager to avoid C audio production manager . Pt reports that her cervical spine pinches w/ extension, bending, and rotation. She also has a constant lump at scapula. Her pain radiates to her shoulder and thumb. Has been seeing a chiroPHILIPPE. She reports tingling constant ( feels hot), trouble sleeping. Pt lifts weight 5-6 days per week. Pt reports that her neck pain, feels pulling at base of skull, worse with extension (catches), B lateral flexion (catches), rotation. She also has tingling occurs constantly into her L arm/thumb. This occasionally wakes her at night, has to shake her hands or reposition. She is now unable to get comfortable at night, sleeps on back or R side, only to the thumb. 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 Uses ergonomic pillow. Her thumb feels like a rubber band . No injuries to thumb. Pt lifts 20-30# for most exercises at gym. Pt reports popping, clicking, locking in her L shoulder; no shoulder injuries. Originally saw Dr for shoulder. Reports no changes in temperature, sensation, weakness PT-OP-C Subjective Start: 11/01/24 13:07 Freq: Status: Active Protocol: Document 11/06/24 10:43 NM (Rec: 11/06/24 11:33 NM [id number]) OP-PT Subjective Patient Comments Patient Comments Pt reports that she is still having trouble sleeping, due L lateral shoulder pain. No changes in tingling, but reports that muscle is sore in the area. PT-OP-E Functional Tests Start: 11/01/24 13:07 Freq: Status: Active Protocol: Document 11/01/24 13:45 NM (Rec: 11/01/24 16:19 NM [id number]) Functional Tests Apley's Scratch Test Action 1- Left clavicle Action 1- Right AC joint Action 2- Left T4 Action 2- Right T4 Action 3- Left T8 Action 3- Right T6 PT-OP-F Manual Assessment Start: 11/01/24 13:07 Freq: Status: Active Protocol: Document 11/01/24 13:45 NM (Rec: 11/01/24 16:19 NM [id number]) Manual Assessments Soft Tissue Assessment Soft Tissue Mobility Assessment Increased restrictions of pecs , cervical paraspinals, biceps , periscapulars Joint Mobility Assessment Joint Mobility Assessment Hypomobility of L GHJ, clavicle, 1st rib. Cervical spine limited by pain, especially into rotation and lateral flexion Other Manual Assessments Other Manual Assessments Thumb: no tenderness to palpation, no clicking/pain/ grinding with compression or distraction PT-OP-H Neuro Start: 11/01/24 13:07 Freq: Status: Active Protocol: Document 11/06/24 10:43 NM (Rec: 11/06/24 11:33 NM [id number]) Sensation Evaluation Comments Summary Comments V1-V3 and BUE intact PT-OP-J Posture/Palpation/Skin Start: 11/01/24 13:07 Freq: Status: Active Protocol: Document 11/01/24 13:45 NM (Rec: 11/01/24 16:19 NM [id number]) Posture Evaluation Position Standing Head/C-Spine Posture Forward Head Shoulder Posture (L) Forward,(R) Forward,(L) Elevated Scapula Posture (L) Elevated,(L) Tipped Arm Posture (L) Internally Rotated,(R) Internally Rotated Pelvis Posture Anteriorly Tilted Palpation Assessment Location L shoulder Palpation Details Mild tenderness over clavicle, scalenes, pec, subscapularis/ lat, and long head biceps. No tenderness along rotator cuff, trapezius Redness present along midthoracic region and lower cervical following pt acupuncture cervical spine Palpation Details Increased restrictions and tenderness along paraspinals and periscapulars especially levator scapula, rhomboids, upper cervical muscles several trigger points present PT-OP-K Range of Motion Start: 11/01/24 13:07 Freq: Status: Active Protocol: Document 11/01/24 13:45 NM (Rec: 11/01/24 16:19 NM [id number]) Cervical Spine Range of Motion Cervical Spine Active Degrees Flexion 50 Extension 45 Rotation Left 45 Rotation Right 70 Lateral Flexion Left 25 Lateral Flexion Right 35 Comments pain with ext, B LF (L>R, L rot Shoulder Goniometric Range of Motion Shoulder Right Flexion 165 Abduction 160 External Rotation at 90 degrees 70 Abduction Internal Rotation Behind Back (text) T6 Left Flexion 140 Abduction 170 External Rotation at 90 degrees 60 Abduction Internal Rotation Behind Back (text) T8 PT-OP-L Special Tests Start: 11/01/24 13:07 Freq: Status: Active Protocol: Document 11/06/24 10:43 NM (Rec: 11/06/24 11:33 NM [id number]) Special Tests Cervical Spine Special Tests Vertebral artery screen Test Results CN intact, PN intact w/ median n involvement; BP 110/68 mmHg Comments carotid and cardiac ausc/palp WFL; no positional test d/t L vertigo hx Cervical Rotation Lateral Flexion Test Results + Comments L rib elevation, no change paresthesia Traction Test Results + Spurling's Test Test Results + Comments L Neural Special Tests- Upper Body Upper Limb Tension Test Test Results + median n. Comments - radial n. - ulnar n. PT-OP-M Strength Start: 11/01/24 13:07 Freq: Status: Active Protocol: Document 11/06/24 10:43 NM (Rec: 11/06/24 16:00 NM [id number]) Shoulder Strength Shoulder Manual Muscle Testing Right Flexion 5 Normal Abduction (C5) 5 Normal External Rotation 5 Normal Internal Rotation 5 Normal Left Flexion 4- Good- Abduction (C5) 4 Good External Rotation 4 Good Internal Rotation 4 Good Elbow/Forearm Strength Elbow and Forearm Manual Muscle Testing Right Flexion (C6) 5 Normal Extension (C7) 5 Normal Left Flexion (C6) 5 Normal Extension (C7) 5 Normal Comments no weakness or pain with pronated audio production manager, neutral audio production manager, or supinated audio production manager PT-OP-Q Treatments Start: 11/01/24 13:07 Freq: Status: Active Protocol: Document 11/06/24 10:43 NM (Rec: 11/06/24 11:33 NM [id number]) Therapeutic Exercises Supine Exercises foam roller Supine Exercise Name TS ext mobilization at multiple segments Resistance AROM Equipment Used mat on floor, foam roller horiz; head supported by hands Reps/Minutes 5 ea x 2 min total Other Exercises median nerve glide Other Exercise Name 1. wrist flex/ext w/ arm by side, 2. elbow flex/ext w/ arm abd Side left Reps/Minutes 15 ea Comments initially tight but improve symptoms following inc reps 1/2 kneel Other Exercise Name TS rotation Side bilateral Reps/Minutes 10 ea Comments feels stretch in biceps L side ; mild L rot pain end range Manual Therapy Treatment Consent Patient gave verbal consent for manual Yes treatment Soft Tissue Mobilization Thoracic spine/trunk Body Location pec major/minor, lat, rhomboids, paraspinals Comments Tenderness and palpable bulge along L ribs/medial to scapula . Tender but improved with rolling laterally, not resolved. Increased L shoulder pec tightness along minor, major especially along insertion into L sholuder L shoulder Body Location rotator cuff, lat/ subscapularis interface, biceps, brachialis, delt Mobilization Type Rolling,Sustained Pressure, Trigger Point Release Intensity/Depth Moderate Comments Performed hooklying and sidelying. Tenderness along posterior cuff, biceps. Palpable difference in biceps muscle tissue compared to surrounding tissue cervical spine Body Location paraspinals, suboccipitals, SCM, LS, traps, scalenes, DNF Mobilization Type Rolling,Strumming,Sustained Pressure Comments Superficial - moderate. Increased restrictions of paraspinals L>R, tightness of scalenes and SCM Joint Mobilizations scapular Direction retraction, depression Grade III Body Position Sidelying Reps/Duration 2x10 Ribs Joint 1st rib Direction caudal Grade II Body Position Hooklying Reps/Duration 10 Comments Legs positioned on bolster. Cueing for breathwork. No tenderness but slightly elevated cervical spine Joint C3-C5 Direction lateral glides B, upglides L>R Grade II Body Position Hooklying Reps/Duration 2x30 ea joint Comments Positioned with legs on bolster. Monitored for pain. Reports tenderness on L side but improvement in pain symptoms following mobilization L shoulder Joint GHJ Direction post Grade III Body Position Hooklying Reps/Duration 2x10 Comments Grade II > III. Monitored for pain. No symptom change or increase. Improved post glide with mobilization PT-OP-T Assessment and Plan Start: 11/01/24 13:07 Freq: Status: Active Protocol: Document 11/06/24 10:43 NM (Rec: 11/06/24 11:33 NM [id number]) Physical Therapy Assessment Goals Three Impairment NDI 24%, Quickdash 29.5% Aircraft Engine Specialist Goal (LTG) Pt will decrease NDI and Quickdash scores <15% impairment in order to demonstrate improved symptom management, activity tolerance at gym, and quality of life LTG Duration 01/11/25 Two Impairment impairments in L shoulder flexion AROM 140 deg Aircraft Engine Specialist Goal (LTG) Pt will increase L shoulder flexion AROM to >160 deg in order to perform reaching ADLs and for better lifting form at gym LTG Duration 01/11/25 One Impairment impairments in cervical spine ROM: L lateral flex 25 deg, L rotation 45 deg Short Term Goal (STG) Pt will increase L lateral flexion >35 deg for improved cervical spine rotation STG Duration 12/27/24 Aircraft Engine Specialist Goal (LTG) Pt will increase L cervical spine rotation to at least 65 deg for improved visual scanning LTG Duration 01/11/25 Assessment Summary Assessment Pt has mild L sided thoracic pain with thoracic rotation, none with extension. Initiated thoracic mobility to address restrictions related to flexed posture. Trialed median nerve glides to improve mobility in LUE, reproduces familiar symptoms but ROM and symptom management improves with reps. Tenderness noted along posterior cuff, medial to L scapula, pec, and cerivical spine. Palpable change in L biceps/brachialis muscle tissue in of LUE, tender with gentle mobilization with slight muscle relaxation but does not resolve. No red sign. Will continue to assess L biceps for possible strain vs other source of irritation. Good feedback to initation of cervical spine mobilizations for pain management. No rotator cuff or elbow weakness /pain compared to RUE. Will continue to assess in relation to ribs and shoulder in future visits. Physical Therapy Plan Frequency and Duration Frequency of Treatment 1-2/wk Duration of treatment (weeks) 10 Plan of Care Start Date 11/01/24 Plan of Care End Date 01/11/25 Therapeutic Interventions Therapeutic Interventions Canalithic Repositioning,Gait Training,Home Exercise Program ,Joint Mobilizations,Manual Therapy,Neuromuscular Re- education,Orthotic/Prosthetic Management,Patient/Caregiver Education,Self-Care/Home Management,Sensory Integration ,Soft Tissue Mobilization, Taping,Therapeutic Activities, Therapeutic Exercises Other Therapeutic Interventions TrP Next Visit Focus/Plan Next Note Type Treatment Note Next Visit Plan unable to position L sidelying due to vertigo hx, prn episodes Trial cervical spine assessment w/ PA and lateral gliding. Assess ribs posteriorly, median n mobility last tx. biceps topher/strain Cervical spine topher., snow angels c/ bands, periscapular strength at wall vs ball, shoulder stabilization manual: GHJ, clavicle, ribs, ACJ; biceps
--- NOTE | 2024-11-12 12:55 | PT.OTN ---
Current Diagnoses Brachial plexus disorders (11/12/24) Pain in unspecified shoulder (11/12/24) Stiffness of left shoulder, not elsewhere classified (11/12/24) Cervicalgia (11/12/24) Other specified disorders of bone, shoulder (11/12/24) Weakness (11/12/24) Physical Therapy Treatment Note PT-OP-A Visit Information Start: 11/01/24 13:07 Freq: Status: Active Protocol: Document 11/12/24 09:51 NM (Rec: 11/12/24 10:44 NM [id number]) Out-Patient Physical Therapy Visit Information Visit Information Visit Type Treatment Note Visit Start Time 09:51 Visit Stop Time 10:30 Visit Number 3 PT-OP-B Current Condition Start: 11/01/24 13:07 Freq: Status: Active Protocol: Document 11/01/24 13:45 NM (Rec: 11/01/24 16:19 NM [id number]) Current Condition History of Current Condition Onset Date 4 months Current Complaints warmth, pain, tingling, clicking, catching History of Current Condition Pt presents with pain in her cervical spine (L>R, midline), L scapular, and L lateral shoulder pain that radiates to her thumb. Pt's primary concern is that her thumb pops along the superior aspect when she does a bicep curl (does not occur otherwise ) and is lessened with adjusting professor of economics to avoid C professor of economics . Pt reports that her cervical spine pinches w/ extension, bending, and rotation. She also has a constant lump at scapula. Her pain radiates to her shoulder and thumb. Has been seeing a chiro, [place]. She reports tingling constant ( feels hot), trouble sleeping. Pt lifts weight 5-6 days per week. Pt reports that her neck pain, feels pulling at base of skull, worse with extension (catches), B lateral flexion (catches), rotation. She also has tingling occurs constantly into her L arm/thumb. This occasionally wakes her at night, has to shake her hands or reposition. She is now unable to get comfortable at night, sleeps on back or R side, only to the thumb. 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 Uses ergonomic pillow. Her thumb feels like a rubber band . No injuries to thumb. Pt lifts 20-30# for most exercises at gym. Pt reports popping, clicking, locking in her L shoulder; no shoulder injuries. Originally saw for shoulder. Reports no changes in temperature, sensation, weakness PT-OP-C Subjective Start: 11/01/24 13:07 Freq: Status: Active Protocol: Document 11/12/24 09:51 NM (Rec: 11/12/24 10:44 NM [id number]) OP-PT Subjective Patient Comments Patient Comments Pt continues to report soreness in her shoulder, reports muscular. She states that she still has popping in her thumb. Did a triceps/ biceps workout, still has poppingi n thumb area; went down in her weight. Nerve glides felt like warmed up everything. Compliant with HEP PT-OP-E Functional Tests Start: 11/01/24 13:07 Freq: Status: Active Protocol: Document 11/01/24 13:45 NM (Rec: 11/01/24 16:19 NM [id number]) Functional Tests Apley's Scratch Test Action 1- Left clavicle Action 1- Right AC joint Action 2- Left T4 Action 2- Right T4 Action 3- Left T8 Action 3- Right T6 PT-OP-F Manual Assessment Start: 11/01/24 13:07 Freq: Status: Active Protocol: Document 11/01/24 13:45 NM (Rec: 11/01/24 16:19 NM [id number]) Manual Assessments Soft Tissue Assessment Soft Tissue Mobility Assessment Increased restrictions of pecs , cervical paraspinals, biceps , periscapulars Joint Mobility Assessment Joint Mobility Assessment Hypomobility of L GHJ, clavicle, 1st rib. Cervical spine limited by pain, especially into rotation and lateral flexion Other Manual Assessments Other Manual Assessments Thumb: no tenderness to palpation, no clicking/pain/ grinding with compression or distraction PT-OP-H Neuro Start: 11/01/24 13:07 Freq: Status: Active Protocol: Document 11/06/24 10:43 NM (Rec: 11/06/24 11:33 NM [id number]) Sensation Evaluation Comments Summary Comments V1-V3 and BUE intact PT-OP-J Posture/Palpation/Skin Start: 11/01/24 13:07 Freq: Status: Active Protocol: Document 11/01/24 13:45 NM (Rec: 11/01/24 16:19 NM [id number]) Posture Evaluation Position Standing Head/C-Spine Posture Forward Head Shoulder Posture (L) Forward,(R) Forward,(L) Elevated Scapula Posture (L) Elevated,(L) Tipped Arm Posture (L) Internally Rotated,(R) Internally Rotated Pelvis Posture Anteriorly Tilted Palpation Assessment Location L shoulder Palpation Details Mild tenderness over clavicle, scalenes, pec, subscapularis/ lat, and long head biceps. No tenderness along rotator cuff, trapezius Redness present along midthoracic region and lower cervical following pt acupuncture cervical spine Palpation Details Increased restrictions and tenderness along paraspinals and periscapulars especially levator scapula, rhomboids, upper cervical muscles several trigger points present PT-OP-K Range of Motion Start: 11/01/24 13:07 Freq: Status: Active Protocol: Document 11/01/24 13:45 NM (Rec: 11/01/24 16:19 NM [id number]) Cervical Spine Range of Motion Cervical Spine Active Degrees Flexion 50 Extension 45 Rotation Left 45 Rotation Right 70 Lateral Flexion Left 25 Lateral Flexion Right 35 Comments pain with ext, B LF (L>R, L rot Shoulder Goniometric Range of Motion Shoulder Right Flexion 165 Abduction 160 External Rotation at 90 degrees 70 Abduction Internal Rotation Behind Back (text) T6 Left Flexion 140 Abduction 170 External Rotation at 90 degrees 60 Abduction Internal Rotation Behind Back (text) T8 PT-OP-L Special Tests Start: 11/01/24 13:07 Freq: Status: Active Protocol: Document 11/06/24 10:43 NM (Rec: 11/06/24 11:33 NM [id number]) Special Tests Cervical Spine Special Tests Vertebral artery screen Test Results CN intact, PN intact w/ median n involvement; BP 110/68 mmHg Comments carotid and cardiac ausc/palp WFL; no positional test d/t L vertigo hx Cervical Rotation Lateral Flexion Test Results + Comments L rib elevation, no change paresthesia Traction Test Results + Spurling's Test Test Results + Comments L Neural Special Tests- Upper Body Upper Limb Tension Test Test Results + median n. Comments - radial n. - ulnar n. PT-OP-M Strength Start: 11/01/24 13:07 Freq: Status: Active Protocol: Document 11/06/24 10:43 NM (Rec: 11/06/24 16:00 NM [id number]) Shoulder Strength Shoulder Manual Muscle Testing Right Flexion 5 Normal Abduction (C5) 5 Normal External Rotation 5 Normal Internal Rotation 5 Normal Left Flexion 4- Good- Abduction (C5) 4 Good External Rotation 4 Good Internal Rotation 4 Good Elbow/Forearm Strength Elbow and Forearm Manual Muscle Testing Right Flexion (C6) 5 Normal Extension (C7) 5 Normal Left Flexion (C6) 5 Normal Extension (C7) 5 Normal Comments no weakness or pain with pronated professor of economics, neutral professor of economics, or supinated professor of economics PT-OP-Q Treatments Start: 11/01/24 13:07 Freq: Status: Active Protocol: Document 11/12/24 09:51 NM (Rec: 11/12/24 10:44 NM [id number]) Therapeutic Exercises Sitting Exercises scapular depression Sitting Exercise Name into pillow Side left Reps/Minutes 10 Comments better form/activation in quadruped Other Exercises quadruped Other Exercise Name 1. scapular depression (HEP no HO), 2. c/ shoulder flex end range Side bilateral Equipment Used PT verbal and tactile cues Reps/Minutes 1. 15, 2. 2 able to lift but challenging; mod bicep pain so d/c today Comments improved w/ reps; feels in LT appropriately 1/2 kneel Other Exercise Name posterior tilt Side left Equipment Used towel folded at wall Reps/Minutes 10 ea Manual Therapy Treatment Consent Patient gave verbal consent for manual Yes treatment Soft Tissue Mobilization Thoracic spine/trunk Body Location pec major/minor, lat, rhomboids, paraspinals Comments Tenderness and palpable bulge along L ribs/medial to scapula . Tender but improved with rolling laterally, not resolved. Increased L shoulder pec tightness along minor, major, lat especially along insertion into L sholuder L shoulder Mobilization Type Rolling,Sustained Pressure, Trigger Point Release Intensity/Depth Moderate Comments Supine, sidelying. Tenderness along posterior cuff, biceps. Palpable difference in biceps muscle tissue compared to surrounding tissue cervical spine Body Location paraspinals, suboccipitals, SCM, LS, traps, scalenes, DNF Mobilization Type Rolling,Strumming,Sustained Pressure Intensity/Depth Moderate Body Position Hooklying Comments Increased restrictions along lower paraspinals kayla near CTJ , reduced with manual tx; several trigger points present Joint Mobilizations scapular Direction retraction, depression Grade III Body Position Sidelying Reps/Duration 4x30 Comments Increased elevation today L shoulder Joint GHJ Direction post Grade III Body Position Hooklying Reps/Duration 4x30 Comments w/ bias into abduction. Monitored for pain. Reports good feedback to increased posterior capsule mobility PT-OP-T Assessment and Plan Start: 11/01/24 13:07 Freq: Status: Active Protocol: Document 11/12/24 09:51 NM (Rec: 11/12/24 10:44 NM [id number]) Physical Therapy Assessment Goals Three Impairment NDI 24%, Quickdash 29.5% Care Home Goal (LTG) Pt will decrease NDI and Quickdash scores <15% impairment in order to demonstrate improved symptom management, activity tolerance at gym, and quality of life LTG Duration 01/11/25 Two Impairment impairments in L shoulder flexion AROM 140 deg Care Home Goal (LTG) Pt will increase L shoulder flexion AROM to >160 deg in order to perform reaching ADLs and for better lifting form at gym LTG Duration 01/11/25 One Impairment impairments in cervical spine ROM: L lateral flex 25 deg, L rotation 45 deg Short Term Goal (STG) Pt will increase L lateral flexion >35 deg for improved cervical spine rotation STG Duration 12/27/24 Homeopathic Doctor Goal (LTG) Pt will increase L cervical spine rotation to at least 65 deg for improved visual scanning LTG Duration 01/11/25 Assessment Summary Assessment Pt continues to have increased restrictions along L biceps/ pec/lat with tenderness and palpable difference in muscle fibers. Increased time spent on scapular mobility today due to increased L scapular elevation. Still elevated posturally at end of session, in addition to anteriorly tilted. Remainder of session spent facilitating posterior scapular tilting, in addition to scapular depression. Pt has appropriate muscle activation with lower trap activation with exercises but still limited with carryover at end of session. Pt would continue to benefit from skilled PT for pain management and flexibility Physical Therapy Plan Frequency and Duration Frequency of Treatment 1-2/wk Duration of treatment (weeks) 10 Plan of Care Start Date 11/01/24 Plan of Care End Date 01/11/25 Therapeutic Interventions Therapeutic Interventions Canalithic Repositioning,Gait Training,Home Exercise Program ,Joint Mobilizations,Manual Therapy,Neuromuscular Re- education,Orthotic/Prosthetic Management,Patient/Caregiver Education,Self-Care/Home Management,Sensory Integration ,Soft Tissue Mobilization, Taping,Therapeutic Activities, Therapeutic Exercises Other Therapeutic Interventions TrP Next Visit Focus/Plan Next Note Type Treatment Note Next Visit Plan unable to position L sidelying due to vertigo hx, prn episodes Trial cervical spine assessment w/ PA and lateral gliding. Assess ribs posteriorly, median n mobility last tx. biceps topher/strain Cervical spine topher., snow angels c/ bands, periscapular strength at wall vs ball, shoulder stabilization manual: GHJ, clavicle, ribs, ACJ; biceps
--- NOTE | 2024-11-14 10:35 | PT.OTN ---
Current Diagnoses Brachial plexus disorders (11/14/24) Pain in unspecified shoulder (11/14/24) Stiffness of left shoulder, not elsewhere classified (11/14/24) Cervicalgia (11/14/24) Other specified disorders of bone, shoulder (11/14/24) Weakness (11/14/24) Physical Therapy Treatment Note PT-OP-A Visit Information Start: 11/01/24 13:07 Freq: Status: Active Protocol: Document 11/14/24 09:43 NM (Rec: 11/14/24 10:35 NM [id number]) Out-Patient Physical Therapy Visit Information Visit Information Visit Type Treatment Note Visit Start Time 09:45 Visit Stop Time 10:25 Visit Number 4 Evaluation Information Evaluation Date 11/01/24 PT-OP-B Current Condition Start: 11/01/24 13:07 Freq: Status: Active Protocol: Document 11/01/24 13:45 NM (Rec: 11/01/24 16:19 NM [id number]) Current Condition History of Current Condition Onset Date 4 months Current Complaints warmth, pain, tingling, clicking, catching History of Current Condition Pt presents with pain in her cervical spine (L>R, midline), L scapular, and L lateral shoulder pain that radiates to her thumb. Pt's primary concern is that her thumb pops along the superior aspect when she does a bicep curl (does not occur otherwise ) and is lessened with adjusting vp software engineering to avoid C vp software engineering . Pt reports that her cervical spine pinches w/ extension, bending, and rotation. She also has a constant lump at scapula. Her pain radiates to her shoulder and thumb. Has been seeing a [facility]iro[facility]. She reports tingling constant ( feels hot), trouble sleeping. Pt lifts weight 5-6 days per week. Pt reports that her neck pain, feels pulling at base of skull, worse with extension (catches), B lateral flexion (catches), rotation. She also has tingling occurs constantly into her L arm/thumb. This occasionally wakes her at night, has to shake her hands or reposition. She is now unable to get comfortable at night, sleeps on back or R side, only to the thumb. 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 Uses ergonomic pillow. Her thumb feels like a rubber band . No injuries to thumb. Pt lifts 20-30# for most exercises at gym. Pt reports popping, clicking, locking in her L shoulder; no shoulder injuries. Originally saw for shoulder. Reports no changes in temperature, sensation, weakness PT-OP-C Subjective Start: 11/01/24 13:07 Freq: Status: Active Protocol: Document 11/14/24 09:43 NM (Rec: 11/14/24 10:35 NM [id number]) OP-PT Subjective Patient Comments Patient Comments Pt reports that she got a massage yesterday, reports feels really good. States that she slept on her back becuase got a lot of work on her neck . She reports less tenderness in her L shoulder anteriorly but needle loom tender. Tingling still decreasing, reports a little trapped with cervical extension PT-OP-E Functional Tests Start: 11/01/24 13:07 Freq: Status: Active Protocol: Document 11/01/24 13:45 NM (Rec: 11/01/24 16:19 NM [id number]) Functional Tests Apley's Scratch Test Action 1- Left clavicle Action 1- Right AC joint Action 2- Left T4 Action 2- Right T4 Action 3- Left T8 Action 3- Right T6 PT-OP-F Manual Assessment Start: 11/01/24 13:07 Freq: Status: Active Protocol: Document 11/01/24 13:45 NM (Rec: 11/01/24 16:19 NM [id number]) Manual Assessments Soft Tissue Assessment Soft Tissue Mobility Assessment Increased restrictions of pecs , cervical paraspinals, biceps , periscapulars Joint Mobility Assessment Joint Mobility Assessment Hypomobility of L GHJ, clavicle, 1st rib. Cervical spine limited by pain, especially into rotation and lateral flexion Other Manual Assessments Other Manual Assessments Thumb: no tenderness to palpation, no clicking/pain/ grinding with compression or distraction PT-OP-H Neuro Start: 11/01/24 13:07 Freq: Status: Active Protocol: Document 11/06/24 10:43 NM (Rec: 11/06/24 11:33 NM [id number]) Sensation Evaluation Comments Summary Comments V1-V3 and BUE intact PT-OP-J Posture/Palpation/Skin Start: 11/01/24 13:07 Freq: Status: Active Protocol: Document 11/01/24 13:45 NM (Rec: 11/01/24 16:19 NM [id number]) Posture Evaluation Position Standing Head/C-Spine Posture Forward Head Shoulder Posture (L) Forward,(R) Forward,(L) Elevated Scapula Posture (L) Elevated,(L) Tipped Arm Posture (L) Internally Rotated,(R) Internally Rotated Pelvis Posture Anteriorly Tilted Palpation Assessment Location L shoulder Palpation Details Mild tenderness over clavicle, scalenes, pec, subscapularis/ lat, and long head biceps. No tenderness along rotator cuff, trapezius Redness present along midthoracic region and lower cervical following pt acupuncture cervical spine Palpation Details Increased restrictions and tenderness along paraspinals and periscapulars especially levator scapula, rhomboids, upper cervical muscles several trigger points present PT-OP-K Range of Motion Start: 11/01/24 13:07 Freq: Status: Active Protocol: Document 11/01/24 13:45 NM (Rec: 11/01/24 16:19 NM [id number]) Cervical Spine Range of Motion Cervical Spine Active Degrees Flexion 50 Extension 45 Rotation Left 45 Rotation Right 70 Lateral Flexion Left 25 Lateral Flexion Right 35 Comments pain with ext, B LF (L>R, L rot Shoulder Goniometric Range of Motion Shoulder Right Flexion 165 Abduction 160 External Rotation at 90 degrees 70 Abduction Internal Rotation Behind Back (text) T6 Left Flexion 140 Abduction 170 External Rotation at 90 degrees 60 Abduction Internal Rotation Behind Back (text) T8 PT-OP-L Special Tests Start: 11/01/24 13:07 Freq: Status: Active Protocol: Document 11/06/24 10:43 NM (Rec: 11/06/24 11:33 NM [id number]) Special Tests Cervical Spine Special Tests Vertebral artery screen Test Results CN intact, PN intact w/ median n involvement; BP 110/68 mmHg Comments carotid and cardiac ausc/palp WFL; no positional test d/t L vertigo hx Cervical Rotation Lateral Flexion Test Results + Comments L rib elevation, no change paresthesia Traction Test Results + Spurling's Test Test Results + Comments L Neural Special Tests- Upper Body Upper Limb Tension Test Test Results + median n. Comments - radial n. - ulnar n. PT-OP-M Strength Start: 11/01/24 13:07 Freq: Status: Active Protocol: Document 11/06/24 10:43 NM (Rec: 11/06/24 16:00 NM [id number]) Shoulder Strength Shoulder Manual Muscle Testing Right Flexion 5 Normal Abduction (C5) 5 Normal External Rotation 5 Normal Internal Rotation 5 Normal Left Flexion 4- Good- Abduction (C5) 4 Good External Rotation 4 Good Internal Rotation 4 Good Elbow/Forearm Strength Elbow and Forearm Manual Muscle Testing Right Flexion (C6) 5 Normal Extension (C7) 5 Normal Left Flexion (C6) 5 Normal Extension (C7) 5 Normal Comments no weakness or pain with pronated vp software engineering, neutral vp software engineering, or supinated vp software engineering PT-OP-Q Treatments Start: 11/01/24 13:07 Freq: Status: Active Protocol: Document 11/14/24 09:43 NM (Rec: 11/14/24 10:35 NM [id number]) Therapeutic Exercises Prone Exercises ITYW Prone Exercise Name I, T(thumbs up), W, Y Side bilateral Equipment Used mat on floor; towel under face Reps/Minutes 10 ea Comments cued form, no pain; appropriate activation, scap position Standing Exercises banded ER Standing Exercise Name c/ flexion Side bilateral Resistance level 1 band Equipment Used at wall Reps/Minutes 10 ea Comments good RTC activation, maintains posture, good pain Other Exercises 1/2 kneel Other Exercise Name posterior tilt Side left Equipment Used towel folded at wall Reps/Minutes 10 ea Comments less motion than last session d/t bicep tightness Manual Therapy Treatment Consent Patient gave verbal consent for manual Yes treatment Joint Mobilizations thoracic spine Joint T2-T8 Direction PA Grade III Body Position Prone Reps/Duration 2x10 ea Comments Most restrictions of upper thoracic, hypomobility. Monitored for pain scapular Direction retraction, depression, upwd/ dwd rotation Grade III Body Position Sidelying Reps/Duration 2x30 cervical spine Joint C3-C5 Direction lateral glides B, upglides L>R , PA Grade II Reps/Duration 2x30 ea joint Comments Performed in hooklying, positioned with legs on bolster, and prone. Monitored for pain, dizziness. No tenderness but increased restrictions with PA glide at upper cervical spine. L shoulder Joint GHJ Direction post Grade III Body Position Hooklying Reps/Duration 4x30 Comments w/ bias into abduction. Monitored for pain. PT-OP-T Assessment and Plan Start: 11/01/24 13:07 Freq: Status: Active Protocol: Document 11/14/24 09:43 NM (Rec: 11/14/24 10:35 NM [id number]) Physical Therapy Assessment Goals Three Impairment NDI 24%, Quickdash 29.5% Group Home Goal (LTG) Pt will decrease NDI and Quickdash scores <15% impairment in order to demonstrate improved symptom management, activity tolerance at gym, and quality of life LTG Duration 01/11/25 Two Impairment impairments in L shoulder flexion AROM 140 deg Medical Office Representative Goal (LTG) Pt will increase L shoulder flexion AROM to >160 deg in order to perform reaching ADLs and for better lifting form at gym LTG Duration 01/11/25 One Impairment impairments in cervical spine ROM: L lateral flex 25 deg, L rotation 45 deg Short Term Goal (STG) Pt will increase L lateral flexion >35 deg for improved cervical spine rotation STG Duration 12/27/24 Medical Office Representative Goal (LTG) Pt will increase L cervical spine rotation to at least 65 deg for improved visual scanning LTG Duration 01/11/25 Assessment Summary Assessment Pt responds well to trialed prone periscapular activation today. Cueing needed for correct execution and scapular facilitation; however, improved with reps. Demos appropriate muscle activation. Added rotator cuff stabilization training for gym . Initiated scapular rotation, thoracic spine mobilizations, and trialed prone cervical mobilizations. Increased restrictions of upper cervical and thoracic spine, limits overall mobility. Continues to have L bicep soft tissue tenderness and restrictions. Physical Therapy Plan Frequency and Duration Frequency of Treatment 1-2/wk Duration of treatment (weeks) 10 Plan of Care Start Date 11/01/24 Plan of Care End Date 01/11/25 Therapeutic Interventions Therapeutic Interventions Canalithic Repositioning,Gait Training,Home Exercise Program ,Joint Mobilizations,Manual Therapy,Neuromuscular Re- education,Orthotic/Prosthetic Management,Patient/Caregiver Education,Self-Care/Home Management,Sensory Integration ,Soft Tissue Mobilization, Taping,Therapeutic Activities, Therapeutic Exercises Other Therapeutic Interventions TrP Next Visit Focus/Plan Next Note Type Treatment Note Next Visit Plan unable to position L sidelying due to vertigo hx, prn episodes Assess ribs, L biceps, rotator cuff. LS. Assess tiffanie to prone periscap strength, RTC strengthening- closed chain. Trial Snags, upper TS ext. manual: GHJ, clavicle, ribs, ACJ; biceps
--- NOTE | 2024-11-20 09:43 | PT.OTN ---
Current Diagnoses Brachial plexus disorders (11/20/24) Pain in unspecified shoulder (11/20/24) Stiffness of left shoulder, not elsewhere classified (11/20/24) Cervicalgia (11/20/24) Other specified disorders of bone, shoulder (11/20/24) Weakness (11/20/24) Physical Therapy Treatment Note PT-OP-A Visit Information Start: 11/01/24 13:07 Freq: Status: Active Protocol: Document 11/20/24 09:02 MB (Rec: 11/20/24 09:43 MB [id number]) Out-Patient Physical Therapy Visit Information Visit Information Visit Type Treatment Note Visit Start Time 09:02 Visit Stop Time 09:42 Visit Number 5 Evaluation Information Evaluation Date 11/01/24 PT-OP-B Current Condition Start: 11/01/24 13:07 Freq: Status: Active Protocol: Document 11/01/24 13:45 NM (Rec: 11/01/24 16:19 NM [id number]) Current Condition History of Current Condition Onset Date 4 months Current Complaints warmth, pain, tingling, clicking, catching History of Current Condition Pt presents with pain in her cervical spine (L>R, midline), L scapular, and L lateral shoulder pain that radiates to her thumb. 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 Pt reports that her cervical spine pinches w/ extension, bending, and rotation. She also has a constant lump at scapula. Her pain radiates to her shoulder and thumb. Has been seeing a chiro[facility]ILIP[facility]. She reports tingling constant ( feels hot), trouble sleeping. Pt lifts weight 5-6 days per week. Pt reports that her neck pain, feels pulling at base of skull, worse with extension (catches), B lateral flexion (catches), rotation. She also has tingling occurs constantly into her L arm/thumb. This occasionally wakes her at night, has to shake her hands or reposition. She is now unable to get comfortable at night, sleeps on back or R side, only to the thumb. 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 Uses ergonomic pillow. Her thumb feels like a rubber band . No injuries to thumb. Pt lifts 20-30# for most exercises at gym. Pt reports popping, clicking, locking in her L shoulder; no shoulder injuries. Originally saw for shoulder. Reports no changes in temperature, sensation, weakness PT-OP-C Subjective Start: 11/01/24 13:07 Freq: Status: Active Protocol: Document 11/20/24 09:02 MB (Rec: 11/20/24 09:43 MB [id number]) OP-PT Subjective Patient Comments Patient Comments Pt has back off a bit with the lifting. She is doing her PT HEP. The nerve glides feel tight but they help. She is able the same as far as neck being locked up and left biceps and pain. She has been avoiding the left side d/t history of BPPV. PT-OP-E Functional Tests Start: 11/01/24 13:07 Freq: Status: Active Protocol: Document 11/01/24 13:45 NM (Rec: 11/01/24 16:19 NM [id number]) Functional Tests Apley's Scratch Test Action 1- Left clavicle Action 1- Right AC joint Action 2- Left T4 Action 2- Right T4 Action 3- Left T8 Action 3- Right T6 PT-OP-F Manual Assessment Start: 11/01/24 13:07 Freq: Status: Active Protocol: Document 11/01/24 13:45 NM (Rec: 11/01/24 16:19 NM [id number]) Manual Assessments Soft Tissue Assessment Soft Tissue Mobility Assessment Increased restrictions of pecs , cervical paraspinals, biceps , periscapulars Joint Mobility Assessment Joint Mobility Assessment Hypomobility of L GHJ, clavicle, 1st rib. Cervical spine limited by pain, especially into rotation and lateral flexion Other Manual Assessments Other Manual Assessments Thumb: no tenderness to palpation, no clicking/pain/ grinding with compression or distraction PT-OP-H Neuro Start: 11/01/24 13:07 Freq: Status: Active Protocol: Document 11/06/24 10:43 NM (Rec: 11/06/24 11:33 NM [id number]) Sensation Evaluation Comments Summary Comments V1-V3 and BUE intact PT-OP-J Posture/Palpation/Skin Start: 11/01/24 13:07 Freq: Status: Active Protocol: Document 11/01/24 13:45 NM (Rec: 11/01/24 16:19 NM [id number]) Posture Evaluation Position Standing Head/C-Spine Posture Forward Head Shoulder Posture (L) Forward,(R) Forward,(L) Elevated Scapula Posture (L) Elevated,(L) Tipped Arm Posture (L) Internally Rotated,(R) Internally Rotated Pelvis Posture Anteriorly Tilted Palpation Assessment Location L shoulder Palpation Details Mild tenderness over clavicle, scalenes, pec, subscapularis/ lat, and long head biceps. No tenderness along rotator cuff, trapezius Redness present along midthoracic region and lower cervical following pt acupuncture cervical spine Palpation Details Increased restrictions and tenderness along paraspinals and periscapulars especially levator scapula, rhomboids, upper cervical muscles several trigger points present PT-OP-K Range of Motion Start: 11/01/24 13:07 Freq: Status: Active Protocol: Document 11/01/24 13:45 NM (Rec: 11/01/24 16:19 NM [id number]) Cervical Spine Range of Motion Cervical Spine Active Degrees Flexion 50 Extension 45 Rotation Left 45 Rotation Right 70 Lateral Flexion Left 25 Lateral Flexion Right 35 Comments pain with ext, B LF (L>R, L rot Shoulder Goniometric Range of Motion Shoulder Right Flexion 165 Abduction 160 External Rotation at 90 degrees 70 Abduction Internal Rotation Behind Back (text) T6 Left Flexion 140 Abduction 170 External Rotation at 90 degrees 60 Abduction Internal Rotation Behind Back (text) T8 PT-OP-L Special Tests Start: 11/01/24 13:07 Freq: Status: Active Protocol: Document 11/06/24 10:43 NM (Rec: 11/06/24 11:33 NM [id number]) Special Tests Cervical Spine Special Tests Vertebral artery screen Test Results CN intact, PN intact w/ median n involvement; BP 110/68 mmHg Comments carotid and cardiac ausc/palp WFL; no positional test d/t L vertigo hx Cervical Rotation Lateral Flexion Test Results + Comments L rib elevation, no change paresthesia Traction Test Results + Spurling's Test Test Results + Comments L Neural Special Tests- Upper Body Upper Limb Tension Test Test Results + median n. Comments - radial n. - ulnar n. PT-OP-M Strength Start: 11/01/24 13:07 Freq: Status: Active Protocol: Document 01/28/25 10:43 NM (Rec: 11/06/24 16:00 NM [id number]) Shoulder Strength Shoulder Manual Muscle Testing Right Flexion 5 Normal Abduction (C5) 5 Normal External Rotation 5 Normal Internal Rotation 5 Normal Left Flexion 4- Good- Abduction (C5) 4 Good External Rotation 4 Good Internal Rotation 4 Good Elbow/Forearm Strength Elbow and Forearm Manual Muscle Testing Right Flexion (C6) 5 Normal Extension (C7) 5 Normal Left Flexion (C6) 5 Normal Extension (C7) 5 Normal Comments no weakness or pain with pronated fruit i farmworker, neutral fruit i farmworker, or supinated fruit i farmworker PT-OP-Q Treatments Start: 11/01/24 13:07 Freq: Status: Active Protocol: Document 11/20/24 09:02 MB (Rec: 11/20/24 09:43 MB [id number]) Therapeutic Exercises Supine Exercises Rolling right and left Supine Exercise Name Added to HEP, no handout Comments One pillow vertical and one horizontal under head, 10 reps right and left a Therapeutic Activity Therapeutic Activity Bed mobility and rolling Comments +2 min A for B Ayan-Hallpike and Roll Test and all are negative for nystagmus and dizziness with some mild left neck discomfort with left roll test Manual Therapy Treatment Consent Patient gave verbal consent for manual Yes treatment Other Other Manual Treatments Pt supine with head and legs supported: upper cervical C1-2 upglides grade II and cervical paraspinal STM and gentle flexibility assessment stretching, STM B SCM with more tension on the right. Pt prone: STM and TrP left subscapularis, levator scap Self-Care/Home Management Treatment Education Patient Education Body Mechanics,Home Exercise Program,Posture Other Education Importance of hydration and not avoiding rolling to the left or limiting cervical range/mobility, ed pt in HEP today after treatment for BPPV PT-OP-T Assessment and Plan Start: 11/01/24 13:07 Freq: Status: Active Protocol: Document 11/20/24 09:02 MB (Rec: 11/20/24 09:43 MB [id number]) Physical Therapy Assessment Goals Three Impairment NDI 24%, Quickdash 29.5% Health Lead Goal (LTG) Pt will decrease NDI and Quickdash scores <15% impairment in order to demonstrate improved symptom management, activity tolerance at gym, and quality of life LTG Duration 01/11/25 Two Impairment impairments in L shoulder flexion AROM 140 deg Health Lead Goal (LTG) Pt will increase L shoulder flexion AROM to >160 deg in order to perform reaching ADLs and for better lifting form at gym LTG Duration 01/11/25 One Impairment impairments in cervical spine ROM: L lateral flex 25 deg, L rotation 45 deg Short Term Goal (STG) Pt will increase L lateral flexion >35 deg for improved cervical spine rotation STG Duration 12/27/24 Assisted Goal (LTG) Pt will increase L cervical spine rotation to at least 65 deg for improved visual scanning LTG Duration 01/11/25 Assessment Summary Assessment Pt has increased myofascial tension distal left greater than right levator, like rhomboids and superior middle upper traps fibers. Extensive ed on starting rolling exercises to get out of fear of guarding left neck and improving functional mobility, form and range. Upper cervical spine and sequela may be a result of this guarding behavior. Ed pt in benefits of active shoulder movement, shoulder rolls and cervical ROM post manual treatment today. Physical Therapy Plan Frequency and Duration Frequency of Treatment 1-2/wk Duration of treatment (weeks) 10 Plan of Care Start Date 11/01/24 Plan of Care End Date 01/11/25 Therapeutic Interventions Therapeutic Interventions Canalithic Repositioning,Gait Training,Home Exercise Program ,Joint Mobilizations,Manual Therapy,Neuromuscular Re- education,Orthotic/Prosthetic Management,Patient/Caregiver Education,Self-Care/Home Management,Sensory Integration ,Soft Tissue Mobilization, Taping,Therapeutic Activities, Therapeutic Exercises Next Visit Focus/Plan Next Note Type Treatment Note Next Visit Plan Con't per plan: Assess ribs, L biceps, rotator cuff. LS. Assess tiffanie to prone periscap strength, RTC strengthening- closed chain. Trial Snags, upper TS ext. manual: GHJ, clavicle, ribs, ACJ; biceps
--- NOTE | 2024-11-23 09:48 | PT.OTN ---
Current Diagnoses Brachial plexus disorders (11/23/24) Pain in unspecified shoulder (11/23/24) Stiffness of left shoulder, not elsewhere classified (11/23/24) Cervicalgia (11/23/24) Other specified disorders of bone, shoulder (11/23/24) Weakness (11/23/24) Physical Therapy Treatment Note PT-OP-A Visit Information Start: 11/01/24 13:07 Freq: Status: Active Protocol: Document 11/23/24 09:10 SP (Rec: 11/23/24 09:49 SP [id number]) Out-Patient Physical Therapy Visit Information Visit Information Visit Type Treatment Note Visit Note GOLD MINER 10 min late for appt. Visit Start Time 09:10 Visit Stop Time 09:48 Visit Number 6 Number of GOLD MINER Visits 1 Evaluation Information Evaluation Date 11/01/24 PT-OP-B Current Condition Start: 11/01/24 13:07 Freq: Status: Active Protocol: Document 11/01/24 13:45 NM (Rec: 11/01/24 16:19 NM [id number]) Current Condition History of Current Condition Onset Date 4 months Current Complaints warmth, pain, tingling, clicking, catching History of Current Condition Pt presents with pain in her cervical spine (L>R, midline), L scapular, and L lateral shoulder pain that radiates to her thumb. 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 Pt reports that her cervical spine pinches w/ extension, bending, and rotation. She also has a constant lump at scapula. Her pain radiates to her shoulder and thumb. Has been seeing a chiro [place]. She reports tingling constant ( feels hot), trouble sleeping. Pt lifts weight 5-6 days per week. Pt reports that her neck pain, feels pulling at base of skull, worse with extension (catches), B lateral flexion (catches), rotation. She also has tingling occurs constantly into her L arm/thumb. This occasionally wakes her at night, has to shake her hands or reposition. She is now unable to get comfortable at night, sleeps on back or R side, only to the thumb. 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 Uses ergonomic pillow. Her thumb feels like a rubber band . No injuries to thumb. Pt lifts 20-30# for most exercises at gym. Pt reports popping, clicking, locking in her L shoulder; no shoulder injuries. Originally saw Dr for shoulder. Reports no changes in temperature, sensation, weakness PT-OP-C Subjective Start: 11/01/24 13:07 Freq: Status: Active Protocol: Document 11/23/24 09:10 SP (Rec: 11/23/24 09:49 SP [id number]) OP-PT Subjective Patient Comments Patient Comments Pt reports was pretty sore after last tx TrP manual therapy, but went away next day. PT-OP-E Functional Tests Start: 11/01/24 13:07 Freq: Status: Active Protocol: Document 11/01/24 13:45 NM (Rec: 11/01/24 16:19 NM [id number]) Functional Tests Apley's Scratch Test Action 1- Left clavicle Action 1- Right AC joint Action 2- Left T4 Action 2- Right T4 Action 3- Left T8 Action 3- Right T6 PT-OP-F Manual Assessment Start: 11/01/24 13:07 Freq: Status: Active Protocol: Document 11/01/24 13:45 NM (Rec: 11/01/24 16:19 NM [id number]) Manual Assessments Soft Tissue Assessment Soft Tissue Mobility Assessment Increased restrictions of pecs , cervical paraspinals, biceps , periscapulars Joint Mobility Assessment Joint Mobility Assessment Hypomobility of L GHJ, clavicle, 1st rib. Cervical spine limited by pain, especially into rotation and lateral flexion Other Manual Assessments Other Manual Assessments Thumb: no tenderness to palpation, no clicking/pain/ grinding with compression or distraction PT-OP-H Neuro Start: 11/01/24 13:07 Freq: Status: Active Protocol: Document 11/06/24 10:43 NM (Rec: 11/06/24 11:33 NM [id number]) Sensation Evaluation Comments Summary Comments V1-V3 and BUE intact PT-OP-J Posture/Palpation/Skin Start: 11/01/24 13:07 Freq: Status: Active Protocol: Document 11/01/24 13:45 NM (Rec: 11/01/24 16:19 NM [id number]) Posture Evaluation Position Standing Head/C-Spine Posture Forward Head Shoulder Posture (L) Forward,(R) Forward,(L) Elevated Scapula Posture (L) Elevated,(L) Tipped Arm Posture (L) Internally Rotated,(R) Internally Rotated Pelvis Posture Anteriorly Tilted Palpation Assessment Location L shoulder Palpation Details Mild tenderness over clavicle, scalenes, pec, subscapularis/ lat, and long head biceps. No tenderness along rotator cuff, trapezius Redness present along midthoracic region and lower cervical following pt acupuncture cervical spine Palpation Details Increased restrictions and tenderness along paraspinals and periscapulars especially levator scapula, rhomboids, upper cervical muscles several trigger points present PT-OP-K Range of Motion Start: 11/01/24 13:07 Freq: Status: Active Protocol: Document 11/01/24 13:45 NM (Rec: 11/01/24 16:19 NM [id number]) Cervical Spine Range of Motion Cervical Spine Active Degrees Flexion 50 Extension 45 Rotation Left 45 Rotation Right 70 Lateral Flexion Left 25 Lateral Flexion Right 35 Comments pain with ext, B LF (L>R, L rot Shoulder Goniometric Range of Motion Shoulder Right Flexion 165 Abduction 160 External Rotation at 90 degrees 70 Abduction Internal Rotation Behind Back (text) T6 Left Flexion 140 Abduction 170 External Rotation at 90 degrees 60 Abduction Internal Rotation Behind Back (text) T8 PT-OP-L Special Tests Start: 11/01/24 13:07 Freq: Status: Active Protocol: Document 11/06/24 10:43 NM (Rec: 11/06/24 11:33 NM [id number]) Special Tests Cervical Spine Special Tests Vertebral artery screen Test Results CN intact, PN intact w/ median n involvement; BP 110/68 mmHg Comments carotid and cardiac ausc/palp WFL; no positional test d/t L vertigo hx Cervical Rotation Lateral Flexion Test Results + Comments L rib elevation, no change paresthesia Traction Test Results + Spurling's Test Test Results + Comments L Neural Special Tests- Upper Body Upper Limb Tension Test Test Results + median n. Comments - radial n. - ulnar n. PT-OP-M Strength Start: 11/01/24 13:07 Freq: Status: Active Protocol: Document 11/06/24 10:43 NM (Rec: 11/06/24 16:00 NM [id number]) Shoulder Strength Shoulder Manual Muscle Testing Right Flexion 5 Normal Abduction (C5) 5 Normal External Rotation 5 Normal Internal Rotation 5 Normal Left Flexion 4- Good- Abduction (C5) 4 Good External Rotation 4 Good Internal Rotation 4 Good Elbow/Forearm Strength Elbow and Forearm Manual Muscle Testing Right Flexion (C6) 5 Normal Extension (C7) 5 Normal Left Flexion (C6) 5 Normal Extension (C7) 5 Normal Comments no weakness or pain with pronated circus agent, neutral circus agent, or supinated circus agent PT-OP-Q Treatments Start: 11/01/24 13:07 Freq: Status: Active Protocol: Document 11/23/24 09:10 SP (Rec: 11/23/24 09:49 SP [id number]) Therapeutic Exercises Sidelying Exercises Open Book Sidelying Exercise Name added to HEP /c HO Resistance AROM Reps/Minutes 5 reps, pause stretch /c breath last rep Sitting Exercises SNAGS Sitting Exercise Name added to HEP /c HO: ext and rot Equipment Used towel support Reps/Minutes 10 SH x3 each side Comments good response CS retraction Sitting Exercise Name added to HEP /c HO Resistance Tb #1 Reps/Minutes 15 reps Comments good feedback response thoracic rotation Sitting Exercise Name reviewed Side bilateral Reps/Minutes 10 SH x3 reps each side Comments use chair support circus agent Standing Exercises banded ER Standing Exercise Name c/ flexion- reviewed Side bilateral Resistance level 1 band Equipment Used at wall Reps/Minutes 10 ea Comments good RTC activation, maintains posture, good pain Other Exercises self soft tissue mobilization Other Exercise Name HEP reviewed: S cane, ball wall Side left Equipment Used pt hand during session Reps/Minutes 1 min Comments MWM head nods/turn, ball wall or lay over tennis ball MWM arm mob Manual Therapy Treatment Consent Patient gave verbal consent for manual Yes treatment Soft Tissue Mobilization cervical spine Body Location R>L paraspinals, suboccipitals , SCM, LS, upper traps, scalenes, DNF Mobilization Type Rolling,Strumming,Sustained Pressure,Other Intensity/Depth Moderate Body Position Hooklying Comments STMs /c ed self application SCM and use S cane home carryover and MWM head nods/ turn suboccipitals, deeper paraspinals L>R approx C4 sustained hold DNF then lift Joint Mobilizations cervical spine Joint C3-C5 Direction PA MWM DNF /c lift Grade II Reps/Duration 2x30 ea joint Comments Performed in hooklying, positioned with legs on bolster, and prone. PT-OP-T Assessment and Plan Start: 11/01/24 13:07 Freq: Status: Active Protocol: Document 11/23/24 09:10 SP (Rec: 11/23/24 09:49 SP [id number]) Physical Therapy Assessment Goals Three Impairment NDI 24%, Quickdash 29.5% Optical Laboratory Mechanic Goal (LTG) Pt will decrease NDI and Quickdash scores <15% impairment in order to demonstrate improved symptom management, activity tolerance at gym, and quality of life LTG Duration 01/11/25 Two Impairment impairments in L shoulder flexion AROM 140 deg Skilled Nursing Goal (LTG) Pt will increase L shoulder flexion AROM to >160 deg in order to perform reaching ADLs and for better lifting form at gym LTG Duration 01/11/25 One Impairment impairments in cervical spine ROM: L lateral flex 25 deg, L rotation 45 deg Short Term Goal (STG) Pt will increase L lateral flexion >35 deg for improved cervical spine rotation STG Duration 12/27/24 Skilled Nursing Goal (LTG) Pt will increase L cervical spine rotation to at least 65 deg for improved visual scanning LTG Duration 01/11/25 Assessment Summary Assessment Pt responded well to manual and ed how toself STMs and use S cane MWM to CS paraspinals then added SNAGS ext and rotation with good feedback results for carryover home. She reports can turn head and retract head back better. Ed for spinal postural alignment during activities and use head rest in chair for rest when not actively turning head to scan driving. Progressed resisted Ys off wall with reports feels good alignment and scapular OH work to support putting items in cupboard, compliment to laying prone have done in past appts . Physical Therapy Plan Frequency and Duration Frequency of Treatment 1-2/wk Duration of treatment (weeks) 10 Plan of Care Start Date 11/01/24 Plan of Care End Date 01/11/25 Therapeutic Interventions Therapeutic Interventions Canalithic Repositioning,Gait Training,Home Exercise Program ,Joint Mobilizations,Manual Therapy,Neuromuscular Re- education,Orthotic/Prosthetic Management,Patient/Caregiver Education,Self-Care/Home Management,Sensory Integration ,Soft Tissue Mobilization, Taping,Therapeutic Activities, Therapeutic Exercises Next Visit Focus/Plan Next Note Type Treatment Note Next Visit Plan Con't per plan: Next: Assess ribs, L biceps, rotator cuff. LS. Assess tiffanie to prone periscap strength, RTC strengthening- closed chain. Trial Snags, upper TS ext. manual: GHJ, clavicle, ribs, ACJ; biceps
--- NOTE | 2024-11-27 15:44 | PT.OTN ---
Current Diagnoses Brachial plexus disorders (11/27/24) Pain in unspecified shoulder (11/27/24) Stiffness of left shoulder, not elsewhere classified (11/27/24) Cervicalgia (11/27/24) Other specified disorders of bone, shoulder (11/27/24) Weakness (11/27/24) Physical Therapy Treatment Note PT-OP-A Visit Information Start: 11/01/24 13:07 Freq: Status: Active Protocol: Document 11/27/24 09:49 NM (Rec: 11/27/24 10:44 NM [id number]) Out-Patient Physical Therapy Visit Information Visit Information Visit Type Progress Note Visit Start Time 09:50 Visit Stop Time 10:30 Visit Number 7 PT-OP-B Current Condition Start: 11/01/24 13:07 Freq: Status: Active Protocol: Document 11/01/24 13:45 NM (Rec: 11/01/24 16:19 NM [id number]) Current Condition History of Current Condition Onset Date 4 months Current Complaints warmth, pain, tingling, clicking, catching History of Current Condition Pt presents with pain in her cervical spine (L>R, midline), L scapular, and L lateral shoulder pain that radiates to her thumb. Pt's primary concern is that her thumb pops along the superior aspect when she does a bicep curl (does not occur otherwise ) and is lessened with adjusting fitter up to avoid C fitter up . Pt reports that her cervical spine pinches w/ extension, bending, and rotation. She also has a constant lump at scapula. Her pain radiates to her shoulder and thumb. Has been seeing a chiro, [place]. She reports tingling constant ( feels hot), trouble sleeping. Pt lifts weight 5-6 days per week. Pt reports that her neck pain, feels pulling at base of skull, worse with extension (catches), B lateral flexion (catches), rotation. She also has tingling occurs constantly into her L arm/thumb. This occasionally wakes her at night, has to shake her hands or reposition. She is now unable to get comfortable at night, sleeps on back or R side, only to the thumb. 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 Uses ergonomic pillow. Her thumb feels like a rubber band . No injuries to thumb. Pt lifts 20-30# for most exercises at gym. Pt reports popping, clicking, locking in her L shoulder; no shoulder injuries. Originally saw for shoulder. Reports no changes in temperature, sensation, weakness PT-OP-C Subjective Start: 11/01/24 13:07 Freq: Status: Active Protocol: Document 11/27/24 09:49 NM (Rec: 11/27/24 10:44 NM [id number]) OP-PT Subjective Patient Comments Patient Comments Pt reports that her L shoulder is bothering her. Reports dull all over ache; has not been working out (not her normal). Feels a lot in biceps . No change since starting PT. She reports that she has been trying rolling, reports scared of vertigo; however, has been going well, no symptoms. Less catching, less tighness except with full extension. SNAGs were helpful. PT-OP-E Functional Tests Start: 11/01/24 13:07 Freq: Status: Active Protocol: Document 11/01/24 13:45 NM (Rec: 11/01/24 16:19 NM [id number]) Functional Tests Apley's Scratch Test Action 1- Left clavicle Action 1- Right AC joint Action 2- Left T4 Action 2- Right T4 Action 3- Left T8 Action 3- Right T6 PT-OP-F Manual Assessment Start: 11/01/24 13:07 Freq: Status: Active Protocol: Document 11/01/24 13:45 NM (Rec: 11/01/24 16:19 NM [id number]) Manual Assessments Soft Tissue Assessment Soft Tissue Mobility Assessment Increased restrictions of pecs , cervical paraspinals, biceps , periscapulars Joint Mobility Assessment Joint Mobility Assessment Hypomobility of L GHJ, clavicle, 1st rib. Cervical spine limited by pain, especially into rotation and lateral flexion Other Manual Assessments Other Manual Assessments Thumb: no tenderness to palpation, no clicking/pain/ grinding with compression or distraction PT-OP-H Neuro Start: 11/01/24 13:07 Freq: Status: Active Protocol: Document 11/06/24 10:43 NM (Rec: 11/06/24 11:33 NM [id number]) Sensation Evaluation Comments Summary Comments V1-V3 and BUE intact PT-OP-J Posture/Palpation/Skin Start: 11/01/24 13:07 Freq: Status: Active Protocol: Document 11/01/24 13:45 NM (Rec: 11/01/24 16:19 NM [id number]) Posture Evaluation Position Standing Head/C-Spine Posture Forward Head Shoulder Posture (L) Forward,(R) Forward,(L) Elevated Scapula Posture (L) Elevated,(L) Tipped Arm Posture (L) Internally Rotated,(R) Internally Rotated Pelvis Posture Anteriorly Tilted Palpation Assessment Location L shoulder Palpation Details Mild tenderness over clavicle, scalenes, pec, subscapularis/ lat, and long head biceps. No tenderness along rotator cuff, trapezius Redness present along midthoracic region and lower cervical following pt acupuncture cervical spine Palpation Details Increased restrictions and tenderness along paraspinals and periscapulars especially levator scapula, rhomboids, upper cervical muscles several trigger points present PT-OP-K Range of Motion Start: 11/01/24 13:07 Freq: Status: Active Protocol: Document 11/27/24 09:49 NM (Rec: 11/27/24 10:44 NM [id number]) Cervical Spine Range of Motion Cervical Spine Active Degrees Flexion 50 Extension 45 Rotation Left 65 Rotation Right 70 Lateral Flexion Left 25 Lateral Flexion Right 35 Comments pain with ext, B LF (L>R, L rot) 11/27/24: 50 flex, 35 deg ext, same LF, 65 deg L, 70 deg R rot Shoulder Goniometric Range of Motion Shoulder Right Flexion 165 Abduction 160 External Rotation at 90 degrees 70 Abduction Internal Rotation Behind Back (text) T6 Left Flexion 160 Abduction 170 External Rotation at 90 degrees 60 Abduction Internal Rotation Behind Back (text) T8 Comments IE: 140 deg eval 11/27/24: 160 deg ,mid range pain at anterior shoulder PT-OP-L Special Tests Start: 11/01/24 13:07 Freq: Status: Active Protocol: Document 11/06/24 10:43 NM (Rec: 11/06/24 11:33 NM [id number]) Special Tests Cervical Spine Special Tests Vertebral artery screen Test Results CN intact, PN intact w/ median n involvement; BP 110/68 mmHg Comments carotid and cardiac ausc/palp WFL; no positional test d/t L vertigo hx Cervical Rotation Lateral Flexion Test Results + Comments L rib elevation, no change paresthesia Traction Test Results + Spurling's Test Test Results + Comments L Neural Special Tests- Upper Body Upper Limb Tension Test Test Results + median n. Comments - radial n. - ulnar n. PT-OP-M Strength Start: 11/01/24 13:07 Freq: Status: Active Protocol: Document 11/27/24 09:49 NM (Rec: 11/27/24 10:44 NM [id number]) Shoulder Strength Shoulder Manual Muscle Testing Right Flexion 5 Normal Abduction (C5) 5 Normal External Rotation 5 Normal Internal Rotation 5 Normal Left Flexion 4- Good- Abduction (C5) 4+ Good+ External Rotation 4+ Good+ Internal Rotation 4+ Good+ Comments 11/27/24: no pain c/ flexion but weaker than other motions PT-OP-Q Treatments Start: 11/01/24 13:07 Freq: Status: Active Protocol: Document 11/27/24 09:49 NM (Rec: 11/27/24 10:44 NM [id number]) Therapeutic Exercises Supine Exercises cervical retraction Supine Exercise Name c/ lift Resistance AROM Reps/Minutes 15 Comments cueing initially for less CS flex, improved c/ reps Sitting Exercises CS retraction Sitting Exercise Name HEP review: 1. retraction, 2. c/ rotation (added HEP no HO) Resistance level 1 band Reps/Minutes 10 ea Comments cued for slightly more DNF limit ext; good feedback response Standing Exercises serratus slides Side bilateral Equipment Used //arms Reps/Minutes 10 Comments feels in bicep (not pain), good feedback for serratus c/ cue for wall press Y lift off Standing Exercise Name W slide > Y lift off Side bilateral Resistance AROM Reps/Minutes 15 Comments cued no shldr elevation banded ER Standing Exercise Name flex c/ ER miniband (remove from HEP, no HO) Side bilateral Resistance level 1 band Equipment Used back at wall Reps/Minutes 10 Comments feels in ant shoulder as stretch/pain so d/c; cued DNF, small ROM Manual Therapy Treatment Consent Patient gave verbal consent for manual Yes treatment Soft Tissue Mobilization L shoulder Mobilization Type Rolling,Sustained Pressure, Trigger Point Release Intensity/Depth Moderate Body Position Supine Comments Tenderness along posterior cuff, biceps. Palpable difference in biceps muscle tissue compared to surrounding tissue cervical spine Body Location R>L paraspinals, suboccipitals , SCM, LS, upper traps, scalenes, DNF Mobilization Type Rolling,Strumming,Sustained Pressure,Other Intensity/Depth Moderate Body Position Hooklying Comments Tightness on R side especially upper-mid cervical Joint Mobilizations cervical spine Joint C3-C5 Direction PA, lateral glide and rotation R>L Grade II Reps/Duration 2x30 ea joint Comments Performed in hooklying, positioned with legs on bolster, and prone. R side slightly rotated R C3-5, good feedback to gentle rotation. No MWM d/t time but recommend next session if still present PT-OP-T Assessment and Plan Start: 11/01/24 13:07 Freq: Status: Active Protocol: Document 11/27/24 09:49 NM (Rec: 11/27/24 10:44 NM [id number]) Physical Therapy Assessment Goals Three Impairment NDI 24%, Quickdash 29.5% Decaler Goal (LTG) Pt will decrease NDI and Quickdash scores <15% impairment in order to demonstrate improved symptom management, activity tolerance at gym, and quality of life 11/27/24: NDI 14/100, quickdash 18.1% LTG Duration 01/11/25 MET Two Impairment impairments in L shoulder flexion AROM 140 deg Correction Goal (LTG) Pt will increase L shoulder flexion AROM to >160 deg in order to perform reaching ADLs and for better lifting form at gym 11/27/24: 160 deg flex, pinching at midrange LTG Duration 01/11/25 PROGRESSING One Impairment impairments in cervical spine ROM: L lateral flex 25 deg, L rotation 45 deg Short Term Goal (STG) Pt will increase L lateral flexion >35 deg for improved cervical spine rotation 11/27/24: 25 deg L, 35 deg R STG Duration 12/27/24 NOT MET 11/27 Correction Goal (LTG) Pt will increase L cervical spine rotation to at least 65 deg for improved visual scanning 11/27/24: 65 deg L rot, 70 deg R rot LTG Duration 01/11/25 MET Progress Towards Goals Progress Towards Goals Progressing Toward Goals,Slow Progress due to Medical Issues ,Goals Met Progress Comments Not progressing toward cervical ROM lateral flex goals, still has limitations in R shoulder ROM goals. Assessment Summary Assessment Pt demos R cervical rotation, increased restrictions of R side. Continues to have tenderness, restriction at anterior L shoulder over biceps. Pt feels most shoulder exercises in biceps vs appropriate muscles, improved with cueing especially serratus activation. However, shoulder flexion motion needed for lifting ADLs limited. Good feedback for further cervical spine stabilization for pain management with deep neck flexor activation and with band; added rotation with good feedback. Progressing toward goals, especially cervical ROM. Physical Therapy Plan Frequency and Duration Frequency of Treatment 1-2/wk Duration of treatment (weeks) 10 Plan of Care Start Date 11/01/24 Plan of Care End Date 01/11/25 Therapeutic Interventions Therapeutic Interventions Canalithic Repositioning,Gait Training,Home Exercise Program ,Joint Mobilizations,Manual Therapy,Neuromuscular Re- education,Orthotic/Prosthetic Management,Patient/Caregiver Education,Self-Care/Home Management,Sensory Integration ,Soft Tissue Mobilization, Taping,Therapeutic Activities, Therapeutic Exercises Next Visit Focus/Plan Next Note Type Treatment Note Next Visit Plan Con't per plan: assess tiffanie for Cs banded retract and rotation. Trial prone exercises on ball for increased ROM, can trial increased resistance dpending on tolerance. Trial shoulder flex topher for symptom mgmt. closed chain RTC- shoulder taps in mod plank vs quadruped . Next: L biceps, rotator cuff. LS. Assess tiffanie to prone periscap strength, RTC strengthening- closed chain. manual: GHJ, clavicle, ribs, ACJ; biceps
--- NOTE | 2024-11-29 09:07 | PT-OP ANOTE ---
Pt cancelled <24 hrs, sick child's unable to attend.
--- NOTE | 2024-12-03 09:47 | PT.OTN ---
Current Diagnoses Brachial plexus disorders (12/03/24) Pain in unspecified shoulder (12/03/24) Stiffness of left shoulder, not elsewhere classified (12/03/24) Cervicalgia (12/03/24) Other specified disorders of bone, shoulder (12/03/24) Weakness (12/03/24) Physical Therapy Treatment Note PT-OP-A Visit Information Start: 11/01/24 13:07 Freq: Status: Active Protocol: Document 12/03/24 09:07 SP (Rec: 12/03/24 09:49 SP [id number]) Out-Patient Physical Therapy Visit Information Visit Information Visit Type Treatment Note Visit Start Time 09:07 Visit Stop Time 09:47 Visit Number 8 Number of VISITOR SERVICES TECHNICIAN Visits 1 Evaluation Information Evaluation Date 11/01/24 PT-OP-B Current Condition Start: 11/01/24 13:07 Freq: Status: Active Protocol: Document 11/01/24 13:45 NM (Rec: 11/01/24 16:19 NM [id number]) Current Condition History of Current Condition Onset Date 4 months Current Complaints warmth, pain, tingling, clicking, catching History of Current Condition Pt presents with pain in her cervical spine (L>R, midline), L scapular, and L lateral shoulder pain that radiates to her thumb. Pt's primary concern is that her thumb pops along the superior aspect when she does a bicep curl (does not occur otherwise ) and is lessened with adjusting technical research scientist to avoid C technical research scientist . Pt reports that her cervical spine pinches w/ extension, bending, and rotation. She also has a constant lump at scapula. Her pain radiates to her shoulder and thumb. Has been seeing a [facility]iro[facility]. She reports tingling constant ( feels hot), trouble sleeping. Pt lifts weight 5-6 days per week. Pt reports that her neck pain, feels pulling at base of skull, worse with extension (catches), B lateral flexion (catches), rotation. She also has tingling occurs constantly into her L arm/thumb. This occasionally wakes her at night, has to shake her hands or reposition. She is now unable to get comfortable at night, sleeps on back or R side, only to the thumb. 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 Uses ergonomic pillow. Her thumb feels like a rubber band . No injuries to thumb. Pt lifts 20-30# for most exercises at gym. Pt reports popping, clicking, locking in her L shoulder; no shoulder injuries. Originally saw for shoulder. Reports no changes in temperature, sensation, weakness PT-OP-C Subjective Start: 11/01/24 13:07 Freq: Status: Active Protocol: Document 12/03/24 09:07 SP (Rec: 12/03/24 09:49 SP [id number]) OP-PT Subjective Patient Comments Patient Comments Pt reports compliant with HEP: prone and standing shld ex, SNAGS, supine chin tuck and lift, and resisted shld ER- all with no pain. She states her neck really stiff and tightness extends L down posterior shld to same spot at arrival. PT-OP-E Functional Tests Start: 11/01/24 13:07 Freq: Status: Active Protocol: Document 11/01/24 13:45 NM (Rec: 11/01/24 16:19 NM [id number]) Functional Tests Apley's Scratch Test Action 1- Left clavicle Action 1- Right AC joint Action 2- Left T4 Action 2- Right T4 Action 3- Left T8 Action 3- Right T6 PT-OP-F Manual Assessment Start: 11/01/24 13:07 Freq: Status: Active Protocol: Document 11/01/24 13:45 NM (Rec: 11/01/24 16:19 NM [id number]) Manual Assessments Soft Tissue Assessment Soft Tissue Mobility Assessment Increased restrictions of pecs , cervical paraspinals, biceps , periscapulars Joint Mobility Assessment Joint Mobility Assessment Hypomobility of L GHJ, clavicle, 1st rib. Cervical spine limited by pain, especially into rotation and lateral flexion Other Manual Assessments Other Manual Assessments Thumb: no tenderness to palpation, no clicking/pain/ grinding with compression or distraction PT-OP-H Neuro Start: 11/01/24 13:07 Freq: Status: Active Protocol: Document 11/06/24 10:43 NM (Rec: 11/06/24 11:33 NM [id number]) Sensation Evaluation Comments Summary Comments V1-V3 and BUE intact PT-OP-J Posture/Palpation/Skin Start: 11/01/24 13:07 Freq: Status: Active Protocol: Document 11/01/24 13:45 NM (Rec: 11/01/24 16:19 NM [id number]) Posture Evaluation Position Standing Head/C-Spine Posture Forward Head Shoulder Posture (L) Forward,(R) Forward,(L) Elevated Scapula Posture (L) Elevated,(L) Tipped Arm Posture (L) Internally Rotated,(R) Internally Rotated Pelvis Posture Anteriorly Tilted Palpation Assessment Location L shoulder Palpation Details Mild tenderness over clavicle, scalenes, pec, subscapularis/ lat, and long head biceps. No tenderness along rotator cuff, trapezius Redness present along midthoracic region and lower cervical following pt acupuncture cervical spine Palpation Details Increased restrictions and tenderness along paraspinals and periscapulars especially levator scapula, rhomboids, upper cervical muscles several trigger points present PT-OP-K Range of Motion Start: 11/01/24 13:07 Freq: Status: Active Protocol: Document 11/27/24 09:49 NM (Rec: 11/27/24 10:44 NM [id number]) Cervical Spine Range of Motion Cervical Spine Active Degrees Flexion 50 Extension 45 Rotation Left 65 Rotation Right 70 Lateral Flexion Left 25 Lateral Flexion Right 35 Comments pain with ext, B LF (L>R, L rot) 11/27/24: 50 flex, 35 deg ext, same LF, 65 deg L, 70 deg R rot Shoulder Goniometric Range of Motion Shoulder Right Flexion 165 Abduction 160 External Rotation at 90 degrees 70 Abduction Internal Rotation Behind Back (text) T6 Left Flexion 160 Abduction 170 External Rotation at 90 degrees 60 Abduction Internal Rotation Behind Back (text) T8 Comments IE: 140 deg eval 11/27/24: 160 deg ,mid range pain at anterior shoulder PT-OP-L Special Tests Start: 11/01/24 13:07 Freq: Status: Active Protocol: Document 11/06/24 10:43 NM (Rec: 11/06/24 11:33 NM [id number]) Special Tests Cervical Spine Special Tests Vertebral artery screen Test Results CN intact, PN intact w/ median n involvement; BP 110/68 mmHg Comments carotid and cardiac ausc/palp WFL; no positional test d/t L vertigo hx Cervical Rotation Lateral Flexion Test Results + Comments L rib elevation, no change paresthesia Traction Test Results + Spurling's Test Test Results + Comments L Neural Special Tests- Upper Body Upper Limb Tension Test Test Results + median n. Comments - radial n. - ulnar n. PT-OP-M Strength Start: 11/01/24 13:07 Freq: Status: Active Protocol: Document 11/27/24 09:49 NM (Rec: 11/27/24 10:44 NM [id number]) Shoulder Strength Shoulder Manual Muscle Testing Right Flexion 5 Normal Abduction (C5) 5 Normal External Rotation 5 Normal Internal Rotation 5 Normal Left Flexion 4- Good- Abduction (C5) 4+ Good+ External Rotation 4+ Good+ Internal Rotation 4+ Good+ Comments 11/27/24: no pain c/ flexion but weaker than other motions PT-OP-Q Treatments Start: 11/01/24 13:07 Freq: Status: Active Protocol: Document 12/03/24 09:07 SP (Rec: 12/03/24 09:49 SP [id number]) Therapeutic Exercises Supine Exercises cervical retraction Supine Exercise Name c/ lift Resistance AROM Reps/Minutes 8 reps Comments good form and strength Sidelying Exercises Open Book Sidelying Exercise Name reviewed Resistance AROM Reps/Minutes 10 reps, pause stretch /c breath last rep Sitting Exercises CS retraction Sitting Exercise Name HEP review: 1. retraction, 2. c/ rotation (pic on phone) Resistance level 1 band Reps/Minutes 10 ea Comments cued for slightly more DNF limit ext; good feedback response Standing Exercises serratus slides Side bilateral Equipment Used forearms glide wall Reps/Minutes 10 Comments feels in bicep (not pain), good feedback for serratus c/ cue for wall press Y lift off Standing Exercise Name W slide > Y lift off Side bilateral Resistance AROM> Tb #1 Reps/Minutes 15 Comments cued no shldr elevation banded ER Standing Exercise Name flex c/ ER miniband Side bilateral Resistance level 1 band Equipment Used back at wall as needed for postural feedback head/shld alignment Reps/Minutes 10 Comments feels good mid scap, cued DNF, small ROM Manual Therapy Treatment Consent Patient gave verbal consent for manual Yes treatment Soft Tissue Mobilization L shoulder Mobilization Type Rolling,Sustained Pressure, Trigger Point Release Intensity/Depth Moderate Body Position Supine Comments Tenderness along posterior cuff, biceps. Palpable difference in biceps muscle tissue compared to surrounding tissue cervical spine Body Location L>R paraspinals, suboccipitals , SCM, LS, upper traps Mobilization Type Rolling,Strumming,Sustained Pressure,Other Intensity/Depth Moderate Body Position Hooklying Comments Tightness on L side especially superior U. Trap and LS Joint Mobilizations L shoulder Joint Scapulothoracic Direction adduction/depression Grade II Body Position R SL Comments w/ bias into abduction, inferior glide. Monitored for pain. Manual Traction CS Details gentle Comments superior. PT-OP-T Assessment and Plan Start: 11/01/24 13:07 Freq: Status: Active Protocol: Document 12/03/24 09:07 SP (Rec: 12/03/24 09:49 SP [id number]) Physical Therapy Assessment Goals Three Impairment NDI 24%, Quickdash 29.5% Arboreal Scientist Goal (LTG) Pt will decrease NDI and Quickdash scores <15% impairment in order to demonstrate improved symptom management, activity tolerance at gym, and quality of life 11/27/24: NDI 14/100, quickdash 18.1% LTG Duration 01/11/25 MET Two Impairment impairments in L shoulder flexion AROM 140 deg Arboreal Scientist Goal (LTG) Pt will increase L shoulder flexion AROM to >160 deg in order to perform reaching ADLs and for better lifting form at gym 11/27/24: 160 deg flex, pinching at midrange LTG Duration 01/11/25 PROGRESSING One Impairment impairments in cervical spine ROM: L lateral flex 25 deg, L rotation 45 deg Short Term Goal (STG) Pt will increase L lateral flexion >35 deg for improved cervical spine rotation 11/27/24: 25 deg L, 35 deg R STG Duration 12/27/24 NOT MET 11/27 Arboreal Scientist Goal (LTG) Pt will increase L cervical spine rotation to at least 65 deg for improved visual scanning 11/27/24: 65 deg L rot, 70 deg R rot LTG Duration 01/11/25 MET Assessment Summary Assessment Pt reported decreased L lateral neck tension post manual, discussion anatomy and neck alignment during ther ex and self manual use personal S cane MWM as perfomed manual, head nods/ turns. Good form supine DNF lift, review HEP progression seated CS retraction against resistance. Good response to tx, no shld/neck pain end tx. Pt reports good carryover allow head relax on head rest while in car while not needing to turn head. Forgot review S cane use MWM head nods/turns. Physical Therapy Plan Frequency and Duration Frequency of Treatment 1-2/wk Duration of treatment (weeks) 10 Plan of Care Start Date 11/01/24 Plan of Care End Date 01/11/25 Therapeutic Interventions Therapeutic Interventions Canalithic Repositioning,Gait Training,Home Exercise Program ,Joint Mobilizations,Manual Therapy,Neuromuscular Re- education,Orthotic/Prosthetic Management,Patient/Caregiver Education,Self-Care/Home Management,Sensory Integration ,Soft Tissue Mobilization, Taping,Therapeutic Activities, Therapeutic Exercises Next Visit Focus/Plan Next Note Type Treatment Note Next Visit Plan Con't per plan: assess tiffanie for Cs banded retract and rotation. Next tx: Trial prone exercises on ball for increased ROM, can trial increased resistance depending on tolerance. Trial shoulder flex topher for symptom mgmt. closed chain RTC- shoulder taps in mod plank vs quadruped . Next: L biceps, rotator cuff. LS. Assess tiffanie to prone periscap strength, RTC strengthening- closed chain. manual: GHJ, clavicle, ribs, ACJ; biceps
--- NOTE | 2024-12-05 13:26 | PT.OTN ---
Current Diagnoses Brachial plexus disorders (12/05/24) Pain in unspecified shoulder (12/05/24) Stiffness of left shoulder, not elsewhere classified (12/05/24) Cervicalgia (12/05/24) Other specified disorders of bone, shoulder (12/05/24) Weakness (12/05/24) Physical Therapy Treatment Note PT-OP-A Visit Information Start: 11/01/24 13:07 Freq: Status: Active Protocol: Document 12/05/24 09:02 NM (Rec: 12/05/24 09:46 NM [id number]) Out-Patient Physical Therapy Visit Information Visit Information Visit Type Treatment Note Visit Start Time 09:03 Visit Stop Time 09:45 Visit Number 9 (3/ PN) Evaluation Information Evaluation Date 11/01/24 PT-OP-B Current Condition Start: 11/01/24 13:07 Freq: Status: Active Protocol: Document 11/01/24 13:45 NM (Rec: 11/01/24 16:19 NM [id number]) Current Condition History of Current Condition Onset Date 4 months Current Complaints warmth, pain, tingling, clicking, catching History of Current Condition Pt presents with pain in her cervical spine (L>R, midline), L scapular, and L lateral shoulder pain that radiates to her thumb. Pt's primary concern is that her thumb pops along the superior aspect when she does a bicep curl (does not occur otherwise ) and is lessened with adjusting cardiothoracic surgeon to avoid C cardiothoracic surgeon . Pt reports that her cervical spine pinches w/ extension, bending, and rotation. She also has a constant lump at scapula. Her pain radiates to her shoulder and thumb. Has been seeing a chiro [place]. She reports tingling constant ( feels hot), trouble sleeping. Pt lifts weight 5-6 days per week. Pt reports that her neck pain, feels pulling at base of skull, worse with extension (catches), B lateral flexion (catches), rotation. She also has tingling occurs constantly into her L arm/thumb. This occasionally wakes her at night, has to shake her hands or reposition. She is now unable to get comfortable at night, sleeps on back or R side, only to the thumb. 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 Uses ergonomic pillow. Her thumb feels like a rubber band . No injuries to thumb. Pt lifts 20-30# for most exercises at gym. Pt reports popping, clicking, locking in her L shoulder; no shoulder injuries. Originally saw Dr for shoulder. Reports no changes in temperature, sensation, weakness PT-OP-C Subjective Start: 11/01/24 13:07 Freq: Status: Active Protocol: Document 12/05/24 09:02 NM (Rec: 12/05/24 09:46 NM [id number]) OP-PT Subjective Patient Comments Patient Comments Pt reports that she is not hurting as much in posterior shoulder/scapula, not as much burning sensation. L biceps still hurts. Neck is minutely better, but does catch consistently especially with rolling over in bed. PT-OP-E Functional Tests Start: 11/01/24 13:07 Freq: Status: Active Protocol: Document 11/01/24 13:45 NM (Rec: 11/01/24 16:19 NM [id number]) Functional Tests Apley's Scratch Test Action 1- Left clavicle Action 1- Right AC joint Action 2- Left T4 Action 2- Right T4 Action 3- Left T8 Action 3- Right T6 PT-OP-F Manual Assessment Start: 11/01/24 13:07 Freq: Status: Active Protocol: Document 11/01/24 13:45 NM (Rec: 11/01/24 16:19 NM [id number]) Manual Assessments Soft Tissue Assessment Soft Tissue Mobility Assessment Increased restrictions of pecs , cervical paraspinals, biceps , periscapulars Joint Mobility Assessment Joint Mobility Assessment Hypomobility of L GHJ, clavicle, 1st rib. Cervical spine limited by pain, especially into rotation and lateral flexion Other Manual Assessments Other Manual Assessments Thumb: no tenderness to palpation, no clicking/pain/ grinding with compression or distraction PT-OP-H Neuro Start: 11/01/24 13:07 Freq: Status: Active Protocol: Document 11/06/24 10:43 NM (Rec: 11/06/24 11:33 NM [id number]) Sensation Evaluation Comments Summary Comments V1-V3 and BUE intact PT-OP-J Posture/Palpation/Skin Start: 11/01/24 13:07 Freq: Status: Active Protocol: Document 11/01/24 13:45 NM (Rec: 11/01/24 16:19 NM [id number]) Posture Evaluation Position Standing Head/C-Spine Posture Forward Head Shoulder Posture (L) Forward,(R) Forward,(L) Elevated Scapula Posture (L) Elevated,(L) Tipped Arm Posture (L) Internally Rotated,(R) Internally Rotated Pelvis Posture Anteriorly Tilted Palpation Assessment Location L shoulder Palpation Details Mild tenderness over clavicle, scalenes, pec, subscapularis/ lat, and long head biceps. No tenderness along rotator cuff, trapezius Redness present along midthoracic region and lower cervical following pt acupuncture cervical spine Palpation Details Increased restrictions and tenderness along paraspinals and periscapulars especially levator scapula, rhomboids, upper cervical muscles several trigger points present PT-OP-K Range of Motion Start: 11/01/24 13:07 Freq: Status: Active Protocol: Document 11/27/24 09:49 NM (Rec: 11/27/24 10:44 NM [id number]) Cervical Spine Range of Motion Cervical Spine Active Degrees Flexion 50 Extension 45 Rotation Left 65 Rotation Right 70 Lateral Flexion Left 25 Lateral Flexion Right 35 Comments pain with ext, B LF (L>R, L rot) 11/27/24: 50 flex, 35 deg ext, same LF, 65 deg L, 70 deg R rot Shoulder Goniometric Range of Motion Shoulder Right Flexion 165 Abduction 160 External Rotation at 90 degrees 70 Abduction Internal Rotation Behind Back (text) T6 Left Flexion 160 Abduction 170 External Rotation at 90 degrees 60 Abduction Internal Rotation Behind Back (text) T8 Comments IE: 140 deg eval 11/27/24: 160 deg ,mid range pain at anterior shoulder PT-OP-L Special Tests Start: 11/01/24 13:07 Freq: Status: Active Protocol: Document 11/06/24 10:43 NM (Rec: 11/06/24 11:33 NM [id number]) Special Tests Cervical Spine Special Tests Vertebral artery screen Test Results CN intact, PN intact w/ median n involvement; BP 110/68 mmHg Comments carotid and cardiac ausc/palp WFL; no positional test d/t L vertigo hx Cervical Rotation Lateral Flexion Test Results + Comments L rib elevation, no change paresthesia Traction Test Results + Spurling's Test Test Results + Comments L Neural Special Tests- Upper Body Upper Limb Tension Test Test Results + median n. Comments - radial n. - ulnar n. PT-OP-M Strength Start: 11/01/24 13:07 Freq: Status: Active Protocol: Document 11/27/24 09:49 NM (Rec: 11/27/24 10:44 NM [id number]) Shoulder Strength Shoulder Manual Muscle Testing Right Flexion 5 Normal Abduction (C5) 5 Normal External Rotation 5 Normal Internal Rotation 5 Normal Left Flexion 4- Good- Abduction (C5) 4+ Good+ External Rotation 4+ Good+ Internal Rotation 4+ Good+ Comments 11/27/24: no pain c/ flexion but weaker than other motions PT-OP-Q Treatments Start: 11/01/24 13:07 Freq: Status: Active Protocol: Document 12/05/24 09:02 NM (Rec: 12/05/24 09:46 NM [id number]) Therapeutic Exercises Supine Exercises press Supine Exercise Name chest press Side bilateral Resistance AROM Equipment Used foam roller Reps/Minutes 10 foam roller Supine Exercise Name 1. snow gautam, 2. pec stretch Reps/Minutes 1. 10, 2. 30 Comments pain at end range abd Sidelying Exercises shoulder ER Side left Resistance AROM Reps/Minutes 10 Comments increased CS tension Sitting Exercises cervical spine AROM Sitting Exercise Name 1. rotation, 2. lateral flexion, 3. extension Side left Reps/Minutes 10 ea Comments post mobilization cervical stretch Sitting Exercise Name trialed - 1. SCM (no rot), 2. trap, 3. LS Reps/Minutes 20 sec ea side Comments L side painful c/ SCM and LS rot so d/c Standing Exercises shoulder taps Standing Exercise Name plank Reps/Minutes 10 ea Comments pain c/ L WB, no change c/ hand plank Manual Therapy Treatment Consent Patient gave verbal consent for manual Yes treatment Soft Tissue Mobilization L shoulder Mobilization Type Rolling,Sustained Pressure, Trigger Point Release Intensity/Depth Moderate Body Position Supine Comments Tenderness along posterior cuff, biceps. Palpable difference in biceps muscle tissue compared to surrounding tissue, minimal change with manual treatment cervical spine Body Location L>R paraspinals, suboccipitals , SCM, LS, upper traps Mobilization Type Rolling,Strumming,Sustained Pressure,Other Intensity/Depth Moderate Body Position Hooklying Comments Increased tightness on L sided paraspinals, upper trap, LS, SCM. Reduced with manual, no eliminated Joint Mobilizations cervical spine Joint C3-C5 Direction PA, R>L lateral glides c/ rot and lat flex Grade III Body Position Sitting Reps/Duration 10 ea joint Comments mobilization into functional movement patterning. most restricted at end range L rotation improved to 60 deg L rotation post mobilization followed with functional movement PT-OP-T Assessment and Plan Start: 11/01/24 13:07 Freq: Status: Active Protocol: Document 12/05/24 09:02 NM (Rec: 12/05/24 09:46 NM [id number]) Physical Therapy Assessment Goals Three Impairment NDI 24%, Quickdash 29.5% [employer] Goal (LTG) Pt will decrease NDI and Quickdash scores <15% impairment in order to demonstrate improved symptom management, activity tolerance at gym, and quality of life 11/27/24: NDI 14/100, quickdash 18.1% LTG Duration 01/11/25 MET Two Impairment impairments in L shoulder flexion AROM 140 deg [employer] Goal (LTG) Pt will increase L shoulder flexion AROM to >160 deg in order to perform reaching ADLs and for better lifting form at gym 11/27/24: 160 deg flex, pinching at midrange LTG Duration 01/11/25 PROGRESSING One Impairment impairments in cervical spine ROM: L lateral flex 25 deg, L rotation 45 deg Short Term Goal (STG) Pt will increase L lateral flexion >35 deg for improved cervical spine rotation 11/27/24: 25 deg L, 35 deg R STG Duration 12/27/24 NOT MET 11/27 [facility] Goal (LTG) Pt will increase L cervical spine rotation to at least 65 deg for improved visual scanning 11/27/24: 65 deg L rot, 70 deg R rot LTG Duration 01/11/25 MET Assessment Summary Assessment Pt has less tension in cervical spine post manual. Tenderness present with mobilization but denies pain. Continues to be more limited on L side than R side especially with rotation, cueing needed for posture prior to head movement due to tendency for kyphosis and cervical protraction. Trialed shoulder press and shoulder stabilization exercises; pt continues to have increased pain in L biceps area, increased tension in cervical spine with movement. Physical Therapy Plan Frequency and Duration Frequency of Treatment 1-2/wk Duration of treatment (weeks) 10 Plan of Care Start Date 11/01/24 Plan of Care End Date 01/11/25 Therapeutic Interventions Therapeutic Interventions Canalithic Repositioning,Gait Training,Home Exercise Program ,Joint Mobilizations,Manual Therapy,Neuromuscular Re- education,Orthotic/Prosthetic Management,Patient/Caregiver Education,Self-Care/Home Management,Sensory Integration ,Soft Tissue Mobilization, Taping,Therapeutic Activities, Therapeutic Exercises Next Visit Focus/Plan Next Note Type Treatment Note Next Visit Plan neck mobilizations with functional movement. Address biceps muscle and pain with shoulder flexion during arm elevation kayla at end range. prone on ball, can add weights if tiffanie. rotator cuff strengthening Con't per plan: assess if tiffanie sidelying shoulder activation vs closed chain RTC- shoulder taps in mod plank vs quadruped. Next: L biceps, rotator cuff. LS. Assess tiffanie to prone periscap strength, RTC strengthening- closed chain. manual: GHJ, clavicle, ribs, ACJ; bicep
--- NOTE | 2024-12-19 11:11 | PT.OTN ---
Current Diagnoses Brachial plexus disorders (12/19/24) Pain in unspecified shoulder (12/19/24) Stiffness of left shoulder, not elsewhere classified (12/19/24) Cervicalgia (12/19/24) Other specified disorders of bone, shoulder (12/19/24) Weakness (12/19/24) Physical Therapy Treatment Note PT-OP-A Visit Information Start: 11/01/24 13:07 Freq: Status: Active Protocol: Document 12/19/24 09:52 NM (Rec: 12/19/24 10:44 NM [id number]) Out-Patient Physical Therapy Visit Information Visit Information Visit Type Treatment Note Visit Start Time 09:52 Visit Stop Time 10:33 Visit Number 10 (01/17 PN) Evaluation Information Evaluation Date 11/01/24 PT-OP-B Current Condition Start: 11/01/24 13:07 Freq: Status: Active Protocol: Document 11/01/24 13:45 NM (Rec: 11/01/24 16:19 NM [id number]) Current Condition History of Current Condition Onset Date 4 months Current Complaints warmth, pain, tingling, clicking, catching History of Current Condition Pt presents with pain in her cervical spine (L>R, midline), L scapular, and L lateral shoulder pain that radiates to her thumb. Pt's primary concern is that her thumb pops along the superior aspect when she does a bicep curl (does not occur otherwise ) and is lessened with adjusting outside property agent to avoid C outside property agent . Pt reports that her cervical spine pinches w/ extension, bending, and rotation. She also has a constant lump at scapula. Her pain radiates to her shoulder and thumb. Has been seeing a chiro [place]. She reports tingling constant ( feels hot), trouble sleeping. Pt lifts weight 5-6 days per week. Pt reports that her neck pain, feels pulling at base of skull, worse with extension (catches), B lateral flexion (catches), rotation. She also has tingling occurs constantly into her L arm/thumb. This occasionally wakes her at night, has to shake her hands or reposition. She is now unable to get comfortable at night, sleeps on back or R side, only to the thumb. 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 Uses ergonomic pillow. Her thumb feels like a rubber band . No injuries to thumb. Pt lifts 20-30# for most exercises at gym. Pt reports popping, clicking, locking in her L shoulder; no shoulder injuries. Originally saw for shoulder. Reports no changes in temperature, sensation, weakness PT-OP-C Subjective Start: 11/01/24 13:07 Freq: Status: Active Protocol: Document 12/19/24 09:52 NM (Rec: 12/19/24 10:44 NM [id number]) OP-PT Subjective Patient Comments Patient Comments Pt reports that she was doing a bicep curl to press (15#) in standing, states that her R side midlow back bothering her ; states worse with breathing, laid on heating pad for 2 days. Has not been lifting since that point. [place] more of a stretch sensation in her low back; no sharp pain at the time. States improving but still irritable and limiting. Occurred last . Rolling and lying on back is problematic. Concerned about insurance visits, wanting to know if 1x/wk ok. Cervical spine ok, still tight and catches but less. Pt feels like has been improving since not lifting. Overall, L shoulder is still a concern. Pain occurs with shoulder flexion (at joint), resisted IR, and resisted elbow flex c/ pronation; limits lifting/ recreation and occasionally ADLs; still pain sometimes with sleeping however, not as much. PT-OP-E Functional Tests Start: 11/01/24 13:07 Freq: Status: Active Protocol: Document 11/01/24 13:45 NM (Rec: 11/01/24 16:19 NM [id number]) Functional Tests Apley's Scratch Test Action 1- Left clavicle Action 1- Right AC joint Action 2- Left T4 Action 2- Right T4 Action 3- Left T8 Action 3- Right T6 PT-OP-F Manual Assessment Start: 11/01/24 13:07 Freq: Status: Active Protocol: Document 11/01/24 13:45 NM (Rec: 11/01/24 16:19 NM [id number]) Manual Assessments Soft Tissue Assessment Soft Tissue Mobility Assessment Increased restrictions of pecs , cervical paraspinals, biceps , periscapulars Joint Mobility Assessment Joint Mobility Assessment Hypomobility of L GHJ, clavicle, 1st rib. Cervical spine limited by pain, especially into rotation and lateral flexion Other Manual Assessments Other Manual Assessments Thumb: no tenderness to palpation, no clicking/pain/ grinding with compression or distraction PT-OP-H Neuro Start: 11/01/24 13:07 Freq: Status: Active Protocol: Document 11/06/24 10:43 NM (Rec: 11/06/24 11:33 NM [id number]) Sensation Evaluation Comments Summary Comments V1-V3 and BUE intact PT-OP-J Posture/Palpation/Skin Start: 11/01/24 13:07 Freq: Status: Active Protocol: Document 11/01/24 13:45 NM (Rec: 11/01/24 16:19 NM [id number]) Posture Evaluation Position Standing Head/C-Spine Posture Forward Head Shoulder Posture (L) Forward,(R) Forward,(L) Elevated Scapula Posture (L) Elevated,(L) Tipped Arm Posture (L) Internally Rotated,(R) Internally Rotated Pelvis Posture Anteriorly Tilted Palpation Assessment Location L shoulder Palpation Details Mild tenderness over clavicle, scalenes, pec, subscapularis/ lat, and long head biceps. No tenderness along rotator cuff, trapezius Redness present along midthoracic region and lower cervical following pt acupuncture cervical spine Palpation Details Increased restrictions and tenderness along paraspinals and periscapulars especially levator scapula, rhomboids, upper cervical muscles several trigger points present PT-OP-K Range of Motion Start: 11/01/24 13:07 Freq: Status: Active Protocol: Document 12/19/24 09:52 NM (Rec: 12/19/24 10:44 NM [id number]) Cervical Spine Range of Motion Cervical Spine Active Degrees Flexion 50 Extension 45 Rotation Left 55 Rotation Right 70 Lateral Flexion Left 25 Lateral Flexion Right 35 Comments pain with ext, B LF (L>R, L rot) 11/27/24: 50 flex, 35 deg ext, same LF, 65 deg L, 70 deg R rot 12/19/24: 50 flex, 45 ext, 55 L rot, 70 R rot, 25 L LF, 35 R LF Shoulder Goniometric Range of Motion Shoulder Right Flexion 165 Abduction 160 External Rotation at 90 degrees 70 Abduction Internal Rotation Behind Back (text) T6 Left Flexion 160 Abduction 170 External Rotation at 90 degrees 60 Abduction Internal Rotation Behind Back (text) T8 Comments IE: 140 deg eval 11/27/24: 160 deg ,mid range pain at anterior shoulder 12/19/24: 160 deg flex, 170 deg abd (reports most limiting d/ t pain); pain with both at anterior shoulder, does have some popping with mid range flexion and abduction PT-OP-L Special Tests Start: 11/01/24 13:07 Freq: Status: Active Protocol: Document 11/06/24 10:43 NM (Rec: 11/06/24 11:33 NM [id number]) Special Tests Cervical Spine Special Tests Vertebral artery screen Test Results CN intact, PN intact w/ median n involvement; BP 110/68 mmHg Comments carotid and cardiac ausc/palp WFL; no positional test d/t L vertigo hx Cervical Rotation Lateral Flexion Test Results + Comments L rib elevation, no change paresthesia Traction Test Results + Spurling's Test Test Results + Comments L Neural Special Tests- Upper Body Upper Limb Tension Test Test Results + median n. Comments - radial n. - ulnar n. PT-OP-M Strength Start: 11/01/24 13:07 Freq: Status: Active Protocol: Document 12/19/24 09:52 NM (Rec: 12/19/24 10:44 NM [id number]) Shoulder Strength Shoulder Manual Muscle Testing Right Flexion 5 Normal Abduction (C5) 5 Normal External Rotation 5 Normal Internal Rotation 5 Normal Left Flexion 4- Good- Abduction (C5) 4+ Good+ External Rotation 4+ Good+ Internal Rotation 4+ Good+ Comments 11/27/24: no pain c/ flexion but weaker than other motions PT-OP-Q Treatments Start: 11/01/24 13:07 Freq: Status: Active Protocol: Document 12/19/24 09:52 NM (Rec: 12/19/24 10:44 NM [id number]) Therapeutic Exercises Supine Exercises ROM Supine Exercise Name AAROM/AROM: 1. ER 45 deg, 2. ER 90 deg Side left Equipment Used R assist L with dowel Reps/Minutes 8 ea Prone Exercises ITYW Prone Exercise Name snow angels (HEP) Side bilateral Equipment Used c/ scapular lift first Reps/Minutes 5 Comments end of session; no inc pain Standing Exercises stabilization Standing Exercise Name L shoulder 90/90 still c/ trunk rotation away into ER Side left Resistance 3# Reps/Minutes 5 Comments challenging; unsure if activation or pain, not sharp periscapulars Standing Exercise Name trialed - snow gautam Side bilateral Resistance level 1 band Reps/Minutes 8 Comments challenging; cued form; no shoulder pain, but back pain ER/IR Standing Exercise Name 1. ER (HEP), 2. IR Side bilateral Resistance level 1 band Reps/Minutes 1. 10, 2. 5 Comments increased pain ant shoulder c/ IR, d/c; no pain ER, fatiguing Manual Therapy Treatment Consent Patient gave verbal consent for manual Yes treatment Soft Tissue Mobilization L shoulder Body Location biceps, brachialist, pec, subclavius, rotator cuff, lat Mobilization Type Rolling,Strumming,Sustained Pressure,Other Body Position hooklying,sidelying Comments Tenderness present along pec, bicep. Reduced bicep tenderness with distal > proximal strumming/rolling. Still palpable difference in muscle quality. Tenderness and trigger point along subscapularis/lat border, posterior cuff near teres. Reduced significantly with manual treatment Other Other Manual Treatments Reassessment of biceps muscle belly: no visible difference between L and R side. L side palpable difference in muscle quality, no bulge present, distal tendon palpable, proximal tendon tender PT-OP-T Assessment and Plan Start: 11/01/24 13:07 Freq: Status: Active Protocol: Document 12/19/24 09:52 NM (Rec: 12/19/24 10:44 NM [id number]) Physical Therapy Assessment Goals Three Impairment NDI 24%, Quickdash 29.5% Emergency Medical Technician/Driver Goal (LTG) Pt will decrease NDI and Quickdash scores <15% impairment in order to demonstrate improved symptom management, activity tolerance at gym, and quality of life 11/27/24: NDI 14/100, quickdash 18.1% 12/19/24: NDI 12%, quickdash 11 .3% LTG Duration 01/11/25 MET Two Impairment impairments in L shoulder flexion AROM 140 deg Fpc Goal (LTG) Pt will increase L shoulder flexion AROM to >160 deg in order to perform reaching ADLs and for better lifting form at gym 11/27/24: 160 deg flex, pinching at midrange 12/19/24: 160 deg flex, 170 deg abd (reports most limiting d/ t pain); pain with both at anterior shoulder, does have some popping with mid range flexion and abduction LTG Duration 01/11/25 PROGRESSING 12/19 One Impairment impairments in cervical spine ROM: L lateral flex 25 deg, L rotation 45 deg Short Term Goal (STG) Pt will increase L lateral flexion >35 deg for improved cervical spine rotation 11/27/24: 25 deg L, 35 deg R 12/19/24: STG Duration 12/27/24 NOT MET 11/27 Emergency Medical Technician/Driver Goal (LTG) Pt will increase L cervical spine rotation to at least 65 deg for improved visual scanning 11/27/24: 65 deg L rot, 70 deg R rot LTG Duration 01/11/25 PARTIALLY MET/ PROGRESSING 12/19 Progress Towards Goals Progress Towards Goals Progressing Toward Goals Assessment Summary Assessment Pt responds well to ER strengthening and AROM; however, fatigues quickly due to increased activation of rotator cuff musculature with resisted ER. IR provocative for sharp pain at pec and anterior shoulder, resolves with cessation of activity. Continued with prone periscapular activation; trialed progression to band in standing but not ready for at this time due to current back pain, however, no discomfort at shoulder with cueing for form. Will continue to assess readiness in future sessions. Pt would benefit from stabilization exercises for L shoulder to promote increased rotator cuff activation dynamically for support during lifting. Demos correct execution, fatiguing and challenging with limited reps; however, pt unsure if soreness vs muscle activation vs pain. Did not add to HEP but will continue to assess stabilization and progress as able Physical Therapy Plan Frequency and Duration Frequency of Treatment 1-2/wk Duration of treatment (weeks) 10 Plan of Care Start Date 11/01/24 Plan of Care End Date 01/11/25 Therapeutic Interventions Therapeutic Interventions Canalithic Repositioning,Gait Training,Home Exercise Program ,Joint Mobilizations,Manual Therapy,Neuromuscular Re- education,Orthotic/Prosthetic Management,Patient/Caregiver Education,Self-Care/Home Management,Sensory Integration ,Soft Tissue Mobilization, Taping,Therapeutic Activities, Therapeutic Exercises Next Visit Focus/Plan Next Note Type Treatment Note Next Visit Plan schedule into january if not already L shoulder: cont ER/RTC strength; trial IR in supine or sidelying supported vs banded at wall 0 deg topher or isotonic. Shoulder stabilization: serratus ball, serratus rotations, 90/90 rotations c/ db, quadruped bear plank vs plank taps, dolphin plank. Progress prone c/ wt periscapular to standing periscapular c/ band or free wt, 1/2 kneel row. assess biceps vs labrum/slap as needed. may need to refer for imaging or ortho Cervicothoracic: neck mobilizations with functional movement kayla L LF and rot, banded rotation, functional strengthening continue manual treatment to L shoulder (trp to bicep if applicable, RTC, lat, pec) and CS/TS
--- NOTE | 2024-12-24 14:30 | PT.OTN ---
Current Diagnoses Brachial plexus disorders (12/24/24) Pain in unspecified shoulder (12/24/24) Stiffness of left shoulder, not elsewhere classified (12/24/24) Cervicalgia (12/24/24) Other specified disorders of bone, shoulder (12/24/24) Weakness (12/24/24) Physical Therapy Treatment Note PT-OP-A Visit Information Start: 11/01/24 13:07 Freq: Status: Active Protocol: Document 12/24/24 13:51 SP (Rec: 12/24/24 14:33 SP [id number]) Out-Patient Physical Therapy Visit Information Visit Information Visit Type Treatment Note Visit Note Update POC next tx 01/02/25 Visit Start Time 13:51 Visit Stop Time 14:30 Visit Number 11 (2/10 visits with PN) Number of WHISKEY [employer]OOF READER Visits 1 Evaluation Information Evaluation Date 11/01/24 PT-OP-B Current Condition Start: 11/01/24 13:07 Freq: Status: Active Protocol: Document 11/01/24 13:45 NM (Rec: 11/01/24 16:19 NM [id number]) Current Condition History of Current Condition Onset Date 4 months Current Complaints warmth, pain, tingling, clicking, catching History of Current Condition Pt presents with pain in her cervical spine (L>R, midline), L scapular, and L lateral shoulder pain that radiates to her thumb. Pt's primary concern is that her thumb pops along the superior aspect when she does a bicep curl (does not occur otherwise ) and is lessened with adjusting coding and reimbursement specialist to avoid C coding and reimbursement specialist . Pt reports that her cervical spine pinches w/ extension, bending, and rotation. She also has a constant lump at scapula. Her pain radiates to her shoulder and thumb. Has been seeing a chiroPHILIPPE. She reports tingling constant ( feels hot), trouble sleeping. Pt lifts weight 5-6 days per week. Pt reports that her neck pain, feels pulling at base of skull, worse with extension (catches), B lateral flexion (catches), rotation. She also has tingling occurs constantly into her L arm/thumb. This occasionally wakes her at night, has to shake her hands or reposition. She is now unable to get comfortable at night, sleeps on back or R side, only to the thumb. 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 Uses ergonomic pillow. Her thumb feels like a rubber band . No injuries to thumb. Pt lifts 20-30# for most exercises at gym. Pt reports popping, clicking, locking in her L shoulder; no shoulder injuries. Originally saw Dr for shoulder. Reports no changes in temperature, sensation, weakness PT-OP-C Subjective Start: 11/01/24 13:07 Freq: Status: Active Protocol: Document 12/24/24 13:51 SP (Rec: 12/24/24 14:33 SP [id number]) OP-PT Subjective Patient Comments Patient Comments Pt reports had massage earlier today more fully body. Still stiffness in neck L>R and L bicep discomfort. Stated will call her physician about if can get MRI neck and or L shld to see if anything going on that can help problem solve continued pain in anterior L shld and neck, was unsure if seeing PT long enough that insurance will approve her to get MRI, she is not experienced significant changes in L shld pain since started. PT-OP-E Functional Tests Start: 11/01/24 13:07 Freq: Status: Active Protocol: Document 11/01/24 13:45 NM (Rec: 11/01/24 16:19 NM [id number]) Functional Tests Apley's Scratch Test Action 1- Left clavicle Action 1- Right AC joint Action 2- Left T4 Action 2- Right T4 Action 3- Left T8 Action 3- Right T6 PT-OP-F Manual Assessment Start: 11/01/24 13:07 Freq: Status: Active Protocol: Document 11/01/24 13:45 NM (Rec: 11/01/24 16:19 NM [id number]) Manual Assessments Soft Tissue Assessment Soft Tissue Mobility Assessment Increased restrictions of pecs , cervical paraspinals, biceps , periscapulars Joint Mobility Assessment Joint Mobility Assessment Hypomobility of L GHJ, clavicle, 1st rib. Cervical spine limited by pain, especially into rotation and lateral flexion Other Manual Assessments Other Manual Assessments Thumb: no tenderness to palpation, no clicking/pain/ grinding with compression or distraction PT-OP-H Neuro Start: 11/01/24 13:07 Freq: Status: Active Protocol: Document 11/06/24 10:43 NM (Rec: 11/06/24 11:33 NM [id number]) Sensation Evaluation Comments Summary Comments V1-V3 and BUE intact PT-OP-J Posture/Palpation/Skin Start: 11/01/24 13:07 Freq: Status: Active Protocol: Document 11/01/24 13:45 NM (Rec: 11/01/24 16:19 NM [id number]) Posture Evaluation Position Standing Head/C-Spine Posture Forward Head Shoulder Posture (L) Forward,(R) Forward,(L) Elevated Scapula Posture (L) Elevated,(L) Tipped Arm Posture (L) Internally Rotated,(R) Internally Rotated Pelvis Posture Anteriorly Tilted Palpation Assessment Location L shoulder Palpation Details Mild tenderness over clavicle, scalenes, pec, subscapularis/ lat, and long head biceps. No tenderness along rotator cuff, trapezius Redness present along midthoracic region and lower cervical following pt acupuncture cervical spine Palpation Details Increased restrictions and tenderness along paraspinals and periscapulars especially levator scapula, rhomboids, upper cervical muscles several trigger points present PT-OP-K Range of Motion Start: 11/01/24 13:07 Freq: Status: Active Protocol: Document 12/19/24 09:52 NM (Rec: 12/19/24 10:44 NM [id number]) Cervical Spine Range of Motion Cervical Spine Active Degrees Flexion 50 Extension 45 Rotation Left 55 Rotation Right 70 Lateral Flexion Left 25 Lateral Flexion Right 35 Comments pain with ext, B LF (L>R, L rot) 11/27/24: 50 flex, 35 deg ext, same LF, 65 deg L, 70 deg R rot 12/19/24: 50 flex, 45 ext, 55 L rot, 70 R rot, 25 L LF, 35 R LF Shoulder Goniometric Range of Motion Shoulder Right Flexion 165 Abduction 160 External Rotation at 90 degrees 70 Abduction Internal Rotation Behind Back (text) T6 Left Flexion 160 Abduction 170 External Rotation at 90 degrees 60 Abduction Internal Rotation Behind Back (text) T8 Comments IE: 140 deg eval 11/27/24: 160 deg ,mid range pain at anterior shoulder 12/19/24: 160 deg flex, 170 deg abd (reports most limiting d/ t pain); pain with both at anterior shoulder, does have some popping with mid range flexion and abduction PT-OP-L Special Tests Start: 11/01/24 13:07 Freq: Status: Active Protocol: Document 11/06/24 10:43 NM (Rec: 11/06/24 11:33 NM [id number]) Special Tests Cervical Spine Special Tests Vertebral artery screen Test Results CN intact, PN intact w/ median n involvement; BP 110/68 mmHg Comments carotid and cardiac ausc/palp WFL; no positional test d/t L vertigo hx Cervical Rotation Lateral Flexion Test Results + Comments L rib elevation, no change paresthesia Traction Test Results + Spurling's Test Test Results + Comments L Neural Special Tests- Upper Body Upper Limb Tension Test Test Results + median n. Comments - radial n. - ulnar n. PT-OP-M Strength Start: 11/01/24 13:07 Freq: Status: Active Protocol: Document 12/19/24 09:52 NM (Rec: 12/19/24 10:44 NM [id number]) Shoulder Strength Shoulder Manual Muscle Testing Right Flexion 5 Normal Abduction (C5) 5 Normal External Rotation 5 Normal Internal Rotation 5 Normal Left Flexion 4- Good- Abduction (C5) 4+ Good+ External Rotation 4+ Good+ Internal Rotation 4+ Good+ Comments 11/27/24: no pain c/ flexion but weaker than other motions PT-OP-Q Treatments Start: 11/01/24 13:07 Freq: Status: Active Protocol: Document 12/24/24 13:51 SP (Rec: 12/24/24 14:33 SP [id number]) Therapeutic Exercises Supine Exercises L shld resisted rotation Supine Exercise Name added to HEP humeral IR <>ER in 90 deg ABD (90/90) Side left Resistance AROM>2#>3# DB Equipment Used hooklying Reps/Minutes 10 reps Comments declined HO Standing Exercises stabilization Standing Exercise Name L shoulder 90/90 elbow flexion & FF front, body R turn away from arm ER Side left Resistance 3#> 5# DB Reps/Minutes 2x10 reps Comments good form no pain, not challenge today, tiring toward last few reps periscapulars Standing Exercise Name Retried- snow gautam (abduction ) Side bilateral Resistance DB 2#> 1# Reps/Minutes 2x5 reps Comments cued LT and humeral inf glide with ER, slow ABD, less ant shld slight pain Manual Therapy Treatment Consent Patient gave verbal consent for manual Yes treatment Soft Tissue Mobilization L shoulder Body Location biceps, brachialis, pec sternal att, subclavius, anterior deltoid Mobilization Type Rolling,Strumming,Sustained Pressure,Other Intensity/Depth Moderate Body Position hooklying,sidelying Comments Tenderness present along superior pec, full bicep. Reduced bicep tenderness with distal > proximal strumming/ rolling and MWM with humeral ER/IR and elbow flexion/ext with edcuation self performance. Reduced significantly with manual treatment cervical spine Body Location L>R paraspinals, suboccipitals , SCM, LS, UTs Mobilization Type Rolling,Strumming,Sustained Pressure,Other Intensity/Depth Moderate Body Position Hooklying Comments Increased tightness on L sided paraspinals, upper trap, LS, SCM. Reduced with manual, not eliminated PT-OP-T Assessment and Plan Start: 11/01/24 13:07 Freq: Status: Active Protocol: Document 12/24/24 15:30 MB (Rec: 12/24/24 15:34 MB [id number]) Physical Therapy Assessment Goals Three Impairment NDI 24%, Quickdash 29.5% Wool Hanker Goal (LTG) Pt will decrease NDI and Quickdash scores <15% impairment in order to demonstrate improved symptom management, activity tolerance at gym, and quality of life 11/27/24: NDI 14/100, quickdash 18.1% 12/19/24: NDI 12%, quickdash 11 .3% LTG Duration 01/11/25 MET Two Impairment impairments in L shoulder flexion AROM 140 deg [facility] Goal (LTG) Pt will increase L shoulder flexion AROM to >160 deg in order to perform reaching ADLs and for better lifting form at gym 11/27/24: 160 deg flex, pinching at midrange 12/19/24: 160 deg flex, 170 deg abd (reports most limiting d/ t pain); pain with both at anterior shoulder, does have some popping with mid range flexion and abduction LTG Duration 02/10/25 PROGRESSING 12/19/24 One Impairment impairments in cervical spine ROM: L lateral flex 25 deg, L rotation 45 deg Short Term Goal (STG) Pt will increase L lateral flexion >35 deg for improved cervical spine rotation 11/27/24: 25 deg L, 35 deg R 12/19/24: STG Duration 12/27/24 NOT MET 11/27 Wool Hanker Goal (LTG) Pt will increase L cervical spine rotation to at least 65 deg for improved visual scanning 11/27/24: 65 deg L rot, 70 deg R rot LTG Duration 02/10/25 PARTIALLY MET/ PROGRESSING 12/19 Assessment Summary Assessment POC updated today to reflect progress note. Physical Therapy Plan Frequency and Duration Frequency of Treatment 1-2x/wk Duration of treatment (weeks) 6 Plan of Care Start Date 12/24/24 Plan of Care End Date 02/10/25 Therapeutic Interventions Therapeutic Interventions Canalithic Repositioning,Gait Training,Home Exercise Program ,Joint Mobilizations,Manual Therapy,Neuromuscular Re- education,Orthotic/Prosthetic Management,Patient/Caregiver Education,Self-Care/Home Management,Sensory Integration ,Soft Tissue Mobilization, Taping,Therapeutic Activities, Therapeutic Exercises Modalities Cold Pack/Ice Massage,Electric Stimulation,Hot Packs, Ultrasound Next Visit Focus/Plan Next Note Type Treatment Note
--- NOTE | 2024-12-24 15:34 | PT.OPPOC ---
Addendum entered and electronically signed by Paula Mcadams PT 12/24/24 15:35: Send to referring doctor Original Note: Physical, Occupational & Speech Therapy At [facility] Current Diagnoses Brachial plexus disorders (12/24/24) Pain in unspecified shoulder (12/24/24) Stiffness of left shoulder, not elsewhere classified (12/24/24) Cervicalgia (12/24/24) Other specified disorders of bone, shoulder (12/24/24) Weakness (12/24/24) Visit Care Team Role Provider Type Jennifer Rodriguez MD Attending Provider Physician Family Provider Primary Care Provider Referring Provider Specialty: Family Practice HELPER MARBLE FINISHER Address: [address] [place] [address], [id number] Fax: Email: [email or web address] Plan Of Care PT-OP-B Current Condition Start: 11/01/24 13:07 Freq: Status: Active Protocol: Document 11/01/24 13:45 NM (Rec: 11/01/24 16:19 NM [id number]) Current Condition History of Current Condition Onset Date 4 months Current Complaints warmth, pain, tingling, clicking, catching History of Current Condition Pt presents with pain in her cervical spine (L>R, midline), L scapular, and L lateral shoulder pain that radiates to her thumb. 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 Pt reports that her cervical spine pinches w/ extension, bending, and rotation. She also has a constant lump at scapula. Her pain radiates to her shoulder and thumb. Has been seeing a chiro, [place]. She reports tingling constant ( feels hot), trouble sleeping. Pt lifts weight 5-6 days per week. Pt reports that her neck pain, feels pulling at base of skull, worse with extension (catches), B lateral flexion (catches), rotation. She also has tingling occurs constantly into her L arm/thumb. This occasionally wakes her at night, has to shake her hands or reposition. She is now unable to get comfortable at night, sleeps on back or R side, only to the thumb. 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 Uses ergonomic pillow. Her thumb feels like a rubber band . No injuries to thumb. Pt lifts 20-30# for most exercises at gym. Pt reports popping, clicking, locking in her L shoulder; no shoulder injuries. Originally saw for shoulder. Reports no changes in temperature, sensation, weakness PT-OP-T Assessment and Plan Start: 11/01/24 13:07 Freq: Status: Active Protocol: Document 12/24/24 15:30 MB (Rec: 12/24/24 15:34 MB [id number]) Physical Therapy Assessment Goals Three Impairment NDI 24%, Quickdash 29.5% Appraisal Technician Goal (LTG) Pt will decrease NDI and Quickdash scores <15% impairment in order to demonstrate improved symptom management, activity tolerance at gym, and quality of life 11/27/24: NDI 14/100, quickdash 18.1% 12/19/24: NDI 12%, quickdash 11 .3% LTG Duration 01/11/25 MET Two Impairment impairments in L shoulder flexion AROM 140 deg Appraisal Technician Goal (LTG) Pt will increase L shoulder flexion AROM to >160 deg in order to perform reaching ADLs and for better lifting form at gym 11/27/24: 160 deg flex, pinching at midrange 12/19/24: 160 deg flex, 170 deg abd (reports most limiting d/ t pain); pain with both at anterior shoulder, does have some popping with mid range flexion and abduction LTG Duration 02/10/25 PROGRESSING 12/19/24 One Impairment impairments in cervical spine ROM: L lateral flex 25 deg, L rotation 45 deg Short Term Goal (STG) Pt will increase L lateral flexion >35 deg for improved cervical spine rotation 11/27/24: 25 deg L, 35 deg R 12/19/24: STG Duration 12/27/24 NOT MET 11/27 [facility] Goal (LTG) Pt will increase L cervical spine rotation to at least 65 deg for improved visual scanning 11/27/24: 65 deg L rot, 70 deg R rot LTG Duration 02/10/25 PARTIALLY MET/ PROGRESSING 12/19 Assessment Summary Assessment POC updated today to reflect progress note. Physical Therapy Plan Frequency and Duration Frequency of Treatment 1-2x/wk Duration of treatment (weeks) 6 Plan of Care Start Date 12/24/24 Plan of Care End Date 02/10/25 Therapeutic Interventions Therapeutic Interventions Canalithic Repositioning,Gait Training,Home Exercise Program ,Joint Mobilizations,Manual Therapy,Neuromuscular Re- education,Orthotic/Prosthetic Management,Patient/Caregiver Education,Self-Care/Home Management,Sensory Integration ,Soft Tissue Mobilization, Taping,Therapeutic Activities, Therapeutic Exercises Modalities Cold Pack/Ice Massage,Electric Stimulation,Hot Packs, Ultrasound Next Visit Focus/Plan Next Note Type Treatment Note Plan of Care Dates Plan of Care Start Date 12/24/24 Plan of Care End Date 02/10/25 Electronically Signed by: Paula Mcadams, PT 12/24/24 [id number] If you are in agreement with this Plan of Care, please return a signed and dated copy. I have reviewed this Plan of Care and certify that the skilled therapy services above are required to meet the patient?s needs. Physician Signature Date Printed Name and Credentials Clinical Instructor Signature Printed Name and Credentials
--- NOTE | 2025-01-02 11:26 | PT.OTN ---
Current Diagnoses Brachial plexus disorders (01/02/25) Pain in unspecified shoulder (01/02/25) Stiffness of left shoulder, not elsewhere classified (01/02/25) Cervicalgia (01/02/25) Other specified disorders of bone, shoulder (01/02/25) Weakness (01/02/25) Physical Therapy Treatment Note PT-OP-A Visit Information Start: 11/01/24 13:07 Freq: Status: Active Protocol: Document 01/02/25 10:44 MB (Rec: 01/02/25 11:25 MB [id number]) Out-Patient Physical Therapy Visit Information Visit Information Visit Type Treatment Note Visit Note 12/17 before next PN by 01/19/25 Visit Start Time 10:44 Visit Stop Time 11:24 Visit Number 12 Number of CUSTOMER SALES SERVICE MANAGER Visits 0 Evaluation Information Evaluation Date 11/01/24 PT-OP-B Current Condition Start: 11/01/24 13:07 Freq: Status: Active Protocol: Document 11/01/24 13:45 NM (Rec: 11/01/24 16:19 NM [id number]) Current Condition History of Current Condition Onset Date 4 months Current Complaints warmth, pain, tingling, clicking, catching History of Current Condition Pt presents with pain in her cervical spine (L>R, midline), L scapular, and L lateral shoulder pain that radiates to her thumb. Pt's primary concern is that her thumb pops along the superior aspect when she does a bicep curl (does not occur otherwise ) and is lessened with adjusting health and safety specialist to avoid C health and safety specialist . Pt reports that her cervical spine pinches w/ extension, bending, and rotation. She also has a constant lump at scapula. Her pain radiates to her shoulder and thumb. Has been seeing a chiroPHILIPPE. She reports tingling constant ( feels hot), trouble sleeping. Pt lifts weight 5-6 days per week. Pt reports that her neck pain, feels pulling at base of skull, worse with extension (catches), B lateral flexion (catches), rotation. She also has tingling occurs constantly into her L arm/thumb. This occasionally wakes her at night, has to shake her hands or reposition. She is now unable to get comfortable at night, sleeps on back or R side, only to the thumb. 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 Uses ergonomic pillow. Her thumb feels like a rubber band . No injuries to thumb. Pt lifts 20-30# for most exercises at gym. Pt reports popping, clicking, locking in her L shoulder; no shoulder injuries. Originally saw for shoulder. Reports no changes in temperature, sensation, weakness PT-OP-C Subjective Start: 11/01/24 13:07 Freq: Status: Active Protocol: Document 01/02/25 10:44 MB (Rec: 01/02/25 11:25 MB [id number]) OP-PT Subjective Patient Comments Patient Comments Pt remembered that the summer of 2022, she pulled left shoulder in biceps area when on an intertube. Her original complaint was popping in thumb with biceps curl. Neck is still bothering her quite a bit. She is rolling over and slept on her left side. She thinks that maybe plan was to get a MRI on left shoulder since it has been so long. PT-OP-E Functional Tests Start: 11/01/24 13:07 Freq: Status: Active Protocol: Document 11/01/24 13:45 NM (Rec: 11/01/24 16:19 NM [id number]) Functional Tests Apley's Scratch Test Action 1- Left clavicle Action 1- Right AC joint Action 2- Left T4 Action 2- Right T4 Action 3- Left T8 Action 3- Right T6 PT-OP-F Manual Assessment Start: 11/01/24 13:07 Freq: Status: Active Protocol: Document 11/01/24 13:45 NM (Rec: 11/01/24 16:19 NM [id number]) Manual Assessments Soft Tissue Assessment Soft Tissue Mobility Assessment Increased restrictions of pecs , cervical paraspinals, biceps , periscapulars Joint Mobility Assessment Joint Mobility Assessment Hypomobility of L GHJ, clavicle, 1st rib. Cervical spine limited by pain, especially into rotation and lateral flexion Other Manual Assessments Other Manual Assessments Thumb: no tenderness to palpation, no clicking/pain/ grinding with compression or distraction PT-OP-H Neuro Start: 11/01/24 13:07 Freq: Status: Active Protocol: Document 11/06/24 10:43 NM (Rec: 11/06/24 11:33 NM [id number]) Sensation Evaluation Comments Summary Comments V1-V3 and BUE intact PT-OP-J Posture/Palpation/Skin Start: 11/01/24 13:07 Freq: Status: Active Protocol: Document 11/01/24 13:45 NM (Rec: 11/01/24 16:19 NM [id number]) Posture Evaluation Position Standing Head/C-Spine Posture Forward Head Shoulder Posture (L) Forward,(R) Forward,(L) Elevated Scapula Posture (L) Elevated,(L) Tipped Arm Posture (L) Internally Rotated,(R) Internally Rotated Pelvis Posture Anteriorly Tilted Palpation Assessment Location L shoulder Palpation Details Mild tenderness over clavicle, scalenes, pec, subscapularis/ lat, and long head biceps. No tenderness along rotator cuff, trapezius Redness present along midthoracic region and lower cervical following pt acupuncture cervical spine Palpation Details Increased restrictions and tenderness along paraspinals and periscapulars especially levator scapula, rhomboids, upper cervical muscles several trigger points present PT-OP-K Range of Motion Start: 11/01/24 13:07 Freq: Status: Active Protocol: Document 12/19/24 09:52 NM (Rec: 12/19/24 10:44 NM [id number]) Cervical Spine Range of Motion Cervical Spine Active Degrees Flexion 50 Extension 45 Rotation Left 55 Rotation Right 70 Lateral Flexion Left 25 Lateral Flexion Right 35 Comments pain with ext, B LF (L>R, L rot) 11/27/24: 50 flex, 35 deg ext, same LF, 65 deg L, 70 deg R rot 12/19/24: 50 flex, 45 ext, 55 L rot, 70 R rot, 25 L LF, 35 R LF Shoulder Goniometric Range of Motion Shoulder Right Flexion 165 Abduction 160 External Rotation at 90 degrees 70 Abduction Internal Rotation Behind Back (text) T6 Left Flexion 160 Abduction 170 External Rotation at 90 degrees 60 Abduction Internal Rotation Behind Back (text) T8 Comments IE: 140 deg eval 11/27/24: 160 deg ,mid range pain at anterior shoulder 12/19/24: 160 deg flex, 170 deg abd (reports most limiting d/ t pain); pain with both at anterior shoulder, does have some popping with mid range flexion and abduction PT-OP-L Special Tests Start: 11/01/24 13:07 Freq: Status: Active Protocol: Document 11/06/24 10:43 NM (Rec: 11/06/24 11:33 NM [id number]) Special Tests Cervical Spine Special Tests Vertebral artery screen Test Results CN intact, PN intact w/ median n involvement; BP 110/68 mmHg Comments carotid and cardiac ausc/palp WFL; no positional test d/t L vertigo hx Cervical Rotation Lateral Flexion Test Results + Comments L rib elevation, no change paresthesia Traction Test Results + Spurling's Test Test Results + Comments L Neural Special Tests- Upper Body Upper Limb Tension Test Test Results + median n. Comments - radial n. - ulnar n. PT-OP-M Strength Start: 11/01/24 13:07 Freq: Status: Active Protocol: Document 12/19/24 09:52 NM (Rec: 12/19/24 10:44 NM [id number]) Shoulder Strength Shoulder Manual Muscle Testing Right Flexion 5 Normal Abduction (C5) 5 Normal External Rotation 5 Normal Internal Rotation 5 Normal Left Flexion 4- Good- Abduction (C5) 4+ Good+ External Rotation 4+ Good+ Internal Rotation 4+ Good+ Comments 11/27/24: no pain c/ flexion but weaker than other motions PT-OP-Q Treatments Start: 11/01/24 13:07 Freq: Status: Active Protocol: Document 01/02/25 10:44 MB (Rec: 01/02/25 11:25 MB [id number]) Manual Therapy Treatment Consent Patient gave verbal consent for manual Yes treatment Other Other Manual Treatments Pt supine with head and legs supported: increased tension left clavicle compared to right, left subclavius, coracobrachialis, long head biceps, pect major and minor, upper traps and STM and positional release all. TrP left anterior upper traps and deltoid, left upper traps posterior, delt posterior, infra. Grade II-III PA mobs cervical and thoracic spine, rib recoil in prone. PT-OP-T Assessment and Plan Start: 11/01/24 13:07 Freq: Status: Active Protocol: Document 01/02/25 10:44 MB (Rec: 01/02/25 11:25 MB [id number]) Physical Therapy Assessment Goals Two Impairment impairments in L shoulder flexion AROM 140 deg Ship Wirer Goal (LTG) Pt will increase L shoulder flexion AROM to >160 deg in order to perform reaching ADLs and for better lifting form at gym 11/27/24: 160 deg flex, pinching at midrange 12/19/24: 160 deg flex, 170 deg abd (reports most limiting d/ t pain); pain with both at anterior shoulder, does have some popping with mid range flexion and abduction LTG Duration 02/10/25 PROGRESSING 12/19/24 One Impairment impairments in cervical spine ROM: L lateral flex 25 deg, L rotation 45 deg Short Term Goal (STG) Pt will increase L lateral flexion >35 deg for improved cervical spine rotation 11/27/24: 25 deg L, 35 deg R 12/19/24: STG Duration 12/27/24 NOT MET 11/27 Mcfp Goal (LTG) Pt will increase L cervical spine rotation to at least 65 deg for improved visual scanning 11/27/24: 65 deg L rot, 70 deg R rot LTG Duration 02/10/25 PARTIALLY MET/ PROGRESSING 12/19 Assessment Summary Assessment PT manually assesses left anterior shoulder today and agrees with previous PT's assessment of left shoulder abnormality and recommendation for MRI. Pt now able to verbalize an injury in 2022 when tubing. Will send this note to referring provider today. Physical Therapy Plan Frequency and Duration Frequency of Treatment 1-2x/wk Duration of treatment (weeks) 6 Plan of Care Start Date 12/24/24 Plan of Care End Date 02/10/25 Therapeutic Interventions Therapeutic Interventions Canalithic Repositioning,Gait Training,Home Exercise Program ,Joint Mobilizations,Manual Therapy,Neuromuscular Re- education,Orthotic/Prosthetic Management,Patient/Caregiver Education,Self-Care/Home Management,Sensory Integration ,Soft Tissue Mobilization, Taping,Therapeutic Activities, Therapeutic Exercises Modalities Cold Pack/Ice Massage,Electric Stimulation,Hot Packs, Ultrasound Other Referrals/Consults Referrals/Consults Recommended Can con't PT efforts but return to PCP for possible diagnostics/MRI left shoulder and see if PCP wants diagnostics for neck, currently PT feeling mostly left shoulder Next Visit Focus/Plan Next Note Type Treatment Note
--- NOTE | 2025-01-08 09:44 | PT.OTN ---
Current Diagnoses Brachial plexus disorders (01/08/25) Pain in unspecified shoulder (01/08/25) Stiffness of left shoulder, not elsewhere classified (01/08/25) Cervicalgia (01/08/25) Other specified disorders of bone, shoulder (01/08/25) Weakness (01/08/25) Physical Therapy Treatment Note PT-OP-A Visit Information Start: 11/01/24 13:07 Freq: Status: Active Protocol: Document 01/08/25 09:04 SP (Rec: 01/08/25 09:51 SP [id number]) Out-Patient Physical Therapy Visit Information Visit Information Visit Type Treatment Note Visit Note 11/19 since last PN Visit Start Time 09:04 Visit Stop Time 09:44 Visit Number 13 Number of MOBILE PRACTICE LEAD Visits 1 Evaluation Information Evaluation Date 11/01/24 PT-OP-B Current Condition Start: 11/01/24 13:07 Freq: Status: Active Protocol: Document 11/01/24 13:45 NM (Rec: 11/01/24 16:19 NM [id number]) Current Condition History of Current Condition Onset Date 4 months Current Complaints warmth, pain, tingling, clicking, catching History of Current Condition Pt presents with pain in her cervical spine (L>R, midline), L scapular, and L lateral shoulder pain that radiates to her thumb. Pt's primary concern is that her thumb pops along the superior aspect when she does a bicep curl (does not occur otherwise ) and is lessened with adjusting regional project manager to avoid C regional project manager . Pt reports that her cervical spine pinches w/ extension, bending, and rotation. She also has a constant lump at scapula. Her pain radiates to her shoulder and thumb. Has been seeing a chiro [place]. She reports tingling constant ( feels hot), trouble sleeping. Pt lifts weight 5-6 days per week. Pt reports that her neck pain, feels pulling at base of skull, worse with extension (catches), B lateral flexion (catches), rotation. She also has tingling occurs constantly into her L arm/thumb. This occasionally wakes her at night, has to shake her hands or reposition. She is now unable to get comfortable at night, sleeps on back or R side, only to the thumb. 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 Uses ergonomic pillow. Her thumb feels like a rubber band . No injuries to thumb. Pt lifts 20-30# for most exercises at gym. Pt reports popping, clicking, locking in her L shoulder; no shoulder injuries. Originally saw Dr for shoulder. Reports no changes in temperature, sensation, weakness PT-OP-C Subjective Start: 11/01/24 13:07 Freq: Status: Active Protocol: Document 01/08/25 09:04 SP (Rec: 01/08/25 09:51 SP [id number]) OP-PT Subjective Patient Comments Patient Comments She reports had massage yesterday felt good during over suboccipitals, L anterior shoulder and posterior neck really sore now. She has been busy preparing for trip so hasn't been as good with HEP. She reported wasn't as intense and didn't know if was as effective previous tx She was hoping next tx with PT more focus lower mid posterior neck . She wants to bring in her HEP HOs next tx and condense, feeling over whelmed. Is OOT tile next appt 01/22 with PT. PT-OP-E Functional Tests Start: 11/01/24 13:07 Freq: Status: Active Protocol: Document 11/01/24 13:45 NM (Rec: 11/01/24 16:19 NM [id number]) Functional Tests Apley's Scratch Test Action 1- Left clavicle Action 1- Right AC joint Action 2- Left T4 Action 2- Right T4 Action 3- Left T8 Action 3- Right T6 PT-OP-F Manual Assessment Start: 11/01/24 13:07 Freq: Status: Active Protocol: Document 11/01/24 13:45 NM (Rec: 11/01/24 16:19 NM [id number]) Manual Assessments Soft Tissue Assessment Soft Tissue Mobility Assessment Increased restrictions of pecs , cervical paraspinals, biceps , periscapulars Joint Mobility Assessment Joint Mobility Assessment Hypomobility of L GHJ, clavicle, 1st rib. Cervical spine limited by pain, especially into rotation and lateral flexion Other Manual Assessments Other Manual Assessments Thumb: no tenderness to palpation, no clicking/pain/ grinding with compression or distraction PT-OP-H Neuro Start: 11/01/24 13:07 Freq: Status: Active Protocol: Document 11/06/24 10:43 NM (Rec: 11/06/24 11:33 NM [id number]) Sensation Evaluation Comments Summary Comments V1-V3 and BUE intact PT-OP-J Posture/Palpation/Skin Start: 11/01/24 13:07 Freq: Status: Active Protocol: Document 11/01/24 13:45 NM (Rec: 11/01/24 16:19 NM [id number]) Posture Evaluation Position Standing Head/C-Spine Posture Forward Head Shoulder Posture (L) Forward,(R) Forward,(L) Elevated Scapula Posture (L) Elevated,(L) Tipped Arm Posture (L) Internally Rotated,(R) Internally Rotated Pelvis Posture Anteriorly Tilted Palpation Assessment Location L shoulder Palpation Details Mild tenderness over clavicle, scalenes, pec, subscapularis/ lat, and long head biceps. No tenderness along rotator cuff, trapezius Redness present along midthoracic region and lower cervical following pt acupuncture cervical spine Palpation Details Increased restrictions and tenderness along paraspinals and periscapulars especially levator scapula, rhomboids, upper cervical muscles several trigger points present PT-OP-K Range of Motion Start: 11/01/24 13:07 Freq: Status: Active Protocol: Document 12/19/24 09:52 NM (Rec: 12/19/24 10:44 NM [id number]) Cervical Spine Range of Motion Cervical Spine Active Degrees Flexion 50 Extension 45 Rotation Left 55 Rotation Right 70 Lateral Flexion Left 25 Lateral Flexion Right 35 Comments pain with ext, B LF (L>R, L rot) 11/27/24: 50 flex, 35 deg ext, same LF, 65 deg L, 70 deg R rot 12/19/24: 50 flex, 45 ext, 55 L rot, 70 R rot, 25 L LF, 35 R LF Shoulder Goniometric Range of Motion Shoulder Right Flexion 165 Abduction 160 External Rotation at 90 degrees 70 Abduction Internal Rotation Behind Back (text) T6 Left Flexion 160 Abduction 170 External Rotation at 90 degrees 60 Abduction Internal Rotation Behind Back (text) T8 Comments IE: 140 deg eval 11/27/24: 160 deg ,mid range pain at anterior shoulder 12/19/24: 160 deg flex, 170 deg abd (reports most limiting d/ t pain); pain with both at anterior shoulder, does have some popping with mid range flexion and abduction PT-OP-L Special Tests Start: 11/01/24 13:07 Freq: Status: Active Protocol: Document 11/06/24 10:43 NM (Rec: 11/06/24 11:33 NM [id number]) Special Tests Cervical Spine Special Tests Vertebral artery screen Test Results CN intact, PN intact w/ median n involvement; BP 110/68 mmHg Comments carotid and cardiac ausc/palp WFL; no positional test d/t L vertigo hx Cervical Rotation Lateral Flexion Test Results + Comments L rib elevation, no change paresthesia Traction Test Results + Spurling's Test Test Results + Comments L Neural Special Tests- Upper Body Upper Limb Tension Test Test Results + median n. Comments - radial n. - ulnar n. PT-OP-M Strength Start: 11/01/24 13:07 Freq: Status: Active Protocol: Document 12/19/24 09:52 NM (Rec: 12/19/24 10:44 NM [id number]) Shoulder Strength Shoulder Manual Muscle Testing Right Flexion 5 Normal Abduction (C5) 5 Normal External Rotation 5 Normal Internal Rotation 5 Normal Left Flexion 4- Good- Abduction (C5) 4+ Good+ External Rotation 4+ Good+ Internal Rotation 4+ Good+ Comments 11/27/24: no pain c/ flexion but weaker than other motions PT-OP-Q Treatments Start: 11/01/24 13:07 Freq: Status: Active Protocol: Document 01/08/25 09:04 SP (Rec: 01/08/25 09:51 SP [id number]) Therapeutic Exercises Supine Exercises IR Supine Exercise Name 90/90 Side bilateral Resistance AROM Reps/Minutes 10 Comments good form no pain. foam roller Supine Exercise Name Ws<>UEs abduction parallel over head- HEP (floor on vacation) Reps/Minutes 10 Comments cued forearms // with floor cervical retraction Supine Exercise Name DNF isometric hold then c/ lift (HEP) Resistance AROM Reps/Minutes 5 x5 then 5 reps lift Comments good form, initially challenging lift improved lessen TS tension with reps Prone Exercises ITYW Prone Exercise Name T thumb up, Ys (HEP) Side bilateral Resistance AROM Equipment Used face cradle, c/ scapular lift first then arms Reps/Minutes 10 reps each Comments cued chin tuck neutral, no inc pain Sitting Exercises CS retraction Sitting Exercise Name HEP review: 1. retraction, 2. rotation Resistance level 1 band behind head Reps/Minutes 10 ea Comments good form and feedback response Standing Exercises ER/IR Standing Exercise Name ER (HEP) Side bilateral Resistance level 1 band between B hands Reps/Minutes 10 Comments no pain, cued CS DNF neutral Manual Therapy Treatment Consent Patient gave verbal consent for manual Yes treatment Other Other Manual Treatments Pt supine with head and legs supported: increased tension CS UT, ES, paraspinals R>L STMs rolling MWM head nods/ turns. SCM and scalenes ok. Clavicle mobility and subclavius ok today. L shld GH posterior and infer glides. MWM bicep, anterior deltoid humeral ER/IR gentle light pressure with ed can perform self if helpful decreased tension. PT-OP-T Assessment and Plan Start: 11/01/24 13:07 Freq: Status: Active Protocol: Document 01/08/25 09:04 SP (Rec: 01/08/25 09:51 SP [id number]) Physical Therapy Assessment Goals Two Impairment impairments in L shoulder flexion AROM 140 deg Assisted Goal (LTG) Pt will increase L shoulder flexion AROM to >160 deg in order to perform reaching ADLs and for better lifting form at gym 11/27/24: 160 deg flex, pinching at midrange 12/19/24: 160 deg flex, 170 deg abd (reports most limiting d/ t pain); pain with both at anterior shoulder, does have some popping with mid range flexion and abduction LTG Duration 02/10/25 PROGRESSING 12/19/24 One Impairment impairments in cervical spine ROM: L lateral flex 25 deg, L rotation 45 deg Short Term Goal (STG) Pt will increase L lateral flexion >35 deg for improved cervical spine rotation 11/27/24: 25 deg L, 35 deg R 12/19/24: STG Duration 12/27/24 NOT MET 11/27 Assisted Goal (LTG) Pt will increase L cervical spine rotation to at least 65 deg for improved visual scanning 11/27/24: 65 deg L rot, 70 deg R rot LTG Duration 02/10/25 PARTIALLY MET/ PROGRESSING 12/19 Assessment Summary Assessment Pt responded well to gentle MFR post head and MWM nod/ turns mid CS musculature. REviewed cervical retraction/ rotation strengthening and scapular stabilization with RTC ER strengthening can focus while on vacation. Discussed bring TB and theracane OOT for use self care. Pt reports scap more mobile and neck not as sore end tx. Will bring HOs next tx to condense and will call PCP to request MRI and or ortho appt for L shld and maybe neck. Physical Therapy Plan Frequency and Duration Frequency of Treatment 1-2x/wk Duration of treatment (weeks) 6 Plan of Care Start Date 12/24/24 Plan of Care End Date 02/10/25 Therapeutic Interventions Therapeutic Interventions Canalithic Repositioning,Gait Training,Home Exercise Program ,Joint Mobilizations,Manual Therapy,Neuromuscular Re- education,Orthotic/Prosthetic Management,Patient/Caregiver Education,Self-Care/Home Management,Sensory Integration ,Soft Tissue Mobilization, Taping,Therapeutic Activities, Therapeutic Exercises Modalities Cold Pack/Ice Massage,Electric Stimulation,Hot Packs, Ultrasound Other Referrals/Consults Referrals/Consults Recommended Can con't PT efforts but return to PCP for possible diagnostics/MRI left shoulder and see if PCP wants diagnostics for neck, currently PT feeling mostly left shoulder Next Visit Focus/Plan Next Note Type Treatment Note Next Visit Plan Condense HEP. REsponse neck L shld while OOT. If called PCP appt MRI L shld. Continue POC previous PT: L shoulder: cont ER/RTC strength; trial IR in supine or sidelying supported vs banded at wall 0 deg topher or isotonic. Shoulder stabilization: serratus ball, serratus rotations, 90/90 rotations c/ db, quadruped bear plank vs plank taps, dolphin plank. Progress prone c/ wt periscapular to standing periscapular c/ band or free wt, 1/2 kneel row. assess biceps vs labrum/slap as needed. may need to refer for imaging or ortho Cervicothoracic: neck mobilizations with functional movement kayla L LF and rot, banded rotation, functional strengthening continue manual treatment to L shoulder (trp to bicep if applicable, RTC, lat, pec) and CS/TS.
--- NOTE | 2025-01-22 09:41 | PT.OTN ---
Current Diagnoses Brachial plexus disorders (01/22/25) Pain in unspecified shoulder (01/22/25) Stiffness of left shoulder, not elsewhere classified (01/22/25) Cervicalgia (01/22/25) Other specified disorders of bone, shoulder (01/22/25) Weakness (01/22/25) Physical Therapy Treatment Note PT-OP-A Visit Information Start: 11/01/24 13:07 Freq: Status: Active Protocol: Document 01/22/25 09:00 MB (Rec: 01/22/25 09:41 MB Desktop) Out-Patient Physical Therapy Visit Information Visit Information Visit Type Discharge Summary Visit Start Time 09:00 Visit Stop Time 09:40 Visit Number 14 Number of BUSINESS [employer] Visits 0 Evaluation Information Evaluation Date 11/01/24 PT-OP-B Current Condition Start: 11/01/24 13:07 Freq: Status: Active Protocol: Document 11/01/24 13:45 NM (Rec: 11/01/24 16:19 NM [id number]) Current Condition History of Current Condition Onset Date 4 months Current Complaints warmth, pain, tingling, clicking, catching History of Current Condition Pt presents with pain in her cervical spine (L>R, midline), L scapular, and L lateral shoulder pain that radiates to her thumb. Pt's primary concern is that her thumb pops along the superior aspect when she does a bicep curl (does not occur otherwise ) and is lessened with adjusting screw machine repairer to avoid C screw machine repairer . Pt reports that her cervical spine pinches w/ extension, bending, and rotation. She also has a constant lump at scapula. Her pain radiates to her shoulder and thumb. Has been seeing a chiroPHILIPPE. She reports tingling constant ( feels hot), trouble sleeping. Pt lifts weight 5-6 days per week. Pt reports that her neck pain, feels pulling at base of skull, worse with extension (catches), B lateral flexion (catches), rotation. She also has tingling occurs constantly into her L arm/thumb. This occasionally wakes her at night, has to shake her hands or reposition. She is now unable to get comfortable at night, sleeps on back or R side, only to the thumb. 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 Uses ergonomic pillow. Her thumb feels like a rubber band . No injuries to thumb. Pt lifts 20-30# for most exercises at gym. Pt reports popping, clicking, locking in her L shoulder; no shoulder injuries. Originally saw Dr for shoulder. Reports no changes in temperature, sensation, weakness PT-OP-C Subjective Start: 11/01/24 13:07 Freq: Status: Active Protocol: Document 01/22/25 09:00 MB (Rec: 01/22/25 09:41 MB Desktop) OP-PT Subjective Patient Comments Patient Comments Pt states that she cannot get in with doctor until mid February. PT had sent note about possible left shoulder MRI the end of December. Pt had been fine on vacation and then when she tried lifting, her whole neck was hurting and she could not move her head. PT-OP-E Functional Tests Start: 11/01/24 13:07 Freq: Status: Active Protocol: Document 11/01/24 13:45 NM (Rec: 11/01/24 16:19 NM [id number]) Functional Tests Apley's Scratch Test Action 1- Left clavicle Action 1- Right AC joint Action 2- Left T4 Action 2- Right T4 Action 3- Left T8 Action 3- Right T6 PT-OP-F Manual Assessment Start: 11/01/24 13:07 Freq: Status: Active Protocol: Document 11/01/24 13:45 NM (Rec: 11/01/24 16:19 NM [id number]) Manual Assessments Soft Tissue Assessment Soft Tissue Mobility Assessment Increased restrictions of pecs , cervical paraspinals, biceps , periscapulars Joint Mobility Assessment Joint Mobility Assessment Hypomobility of L GHJ, clavicle, 1st rib. Cervical spine limited by pain, especially into rotation and lateral flexion Other Manual Assessments Other Manual Assessments Thumb: no tenderness to palpation, no clicking/pain/ grinding with compression or distraction PT-OP-H Neuro Start: 11/01/24 13:07 Freq: Status: Active Protocol: Document 11/06/24 10:43 NM (Rec: 11/06/24 11:33 NM [id number]) Sensation Evaluation Comments Summary Comments V1-V3 and BUE intact PT-OP-J Posture/Palpation/Skin Start: 11/01/24 13:07 Freq: Status: Active Protocol: Document 11/01/24 13:45 NM (Rec: 11/01/24 16:19 NM [id number]) Posture Evaluation Position Standing Head/C-Spine Posture Forward Head Shoulder Posture (L) Forward,(R) Forward,(L) Elevated Scapula Posture (L) Elevated,(L) Tipped Arm Posture (L) Internally Rotated,(R) Internally Rotated Pelvis Posture Anteriorly Tilted Palpation Assessment Location L shoulder Palpation Details Mild tenderness over clavicle, scalenes, pec, subscapularis/ lat, and long head biceps. No tenderness along rotator cuff, trapezius Redness present along midthoracic region and lower cervical following pt acupuncture cervical spine Palpation Details Increased restrictions and tenderness along paraspinals and periscapulars especially levator scapula, rhomboids, upper cervical muscles several trigger points present PT-OP-K Range of Motion Start: 11/01/24 13:07 Freq: Status: Active Protocol: Document 12/19/24 09:52 NM (Rec: 12/19/24 10:44 NM [id number]) Cervical Spine Range of Motion Cervical Spine Active Degrees Flexion 50 Extension 45 Rotation Left 55 Rotation Right 70 Lateral Flexion Left 25 Lateral Flexion Right 35 Comments pain with ext, B LF (L>R, L rot) 11/27/24: 50 flex, 35 deg ext, same LF, 65 deg L, 70 deg R rot 12/19/24: 50 flex, 45 ext, 55 L rot, 70 R rot, 25 L LF, 35 R LF Shoulder Goniometric Range of Motion Shoulder Right Flexion 165 Abduction 160 External Rotation at 90 degrees 70 Abduction Internal Rotation Behind Back (text) T6 Left Flexion 160 Abduction 170 External Rotation at 90 degrees 60 Abduction Internal Rotation Behind Back (text) T8 Comments IE: 140 deg eval 11/27/24: 160 deg ,mid range pain at anterior shoulder 12/19/24: 160 deg flex, 170 deg abd (reports most limiting d/ t pain); pain with both at anterior shoulder, does have some popping with mid range flexion and abduction PT-OP-L Special Tests Start: 11/01/24 13:07 Freq: Status: Active Protocol: Document 11/06/24 10:43 NM (Rec: 11/06/24 11:33 NM [id number]) Special Tests Cervical Spine Special Tests Vertebral artery screen Test Results CN intact, PN intact w/ median n involvement; BP 110/68 mmHg Comments carotid and cardiac ausc/palp WFL; no positional test d/t L vertigo hx Cervical Rotation Lateral Flexion Test Results + Comments L rib elevation, no change paresthesia Traction Test Results + Spurling's Test Test Results + Comments L Neural Special Tests- Upper Body Upper Limb Tension Test Test Results + median n. Comments - radial n. - ulnar n. PT-OP-M Strength Start: 11/01/24 13:07 Freq: Status: Active Protocol: Document 12/19/24 09:52 NM (Rec: 12/19/24 10:44 NM [id number]) Shoulder Strength Shoulder Manual Muscle Testing Right Flexion 5 Normal Abduction (C5) 5 Normal External Rotation 5 Normal Internal Rotation 5 Normal Left Flexion 4- Good- Abduction (C5) 4+ Good+ External Rotation 4+ Good+ Internal Rotation 4+ Good+ Comments 11/27/24: no pain c/ flexion but weaker than other motions PT-OP-Q Treatments Start: 11/01/24 13:07 Freq: Status: Active Protocol: Document 01/22/25 09:00 MB (Rec: 01/22/25 09:41 MB Desktop) Manual Therapy Treatment Consent Patient gave verbal consent for manual Yes treatment Other Other Manual Treatments Pt prone with pillow under hips and shins. Rib recoil muscle energy technique, grade II PA cervical mobs, STM and positional release B upper traps, infra and levator and TrP B levator, left upper traps, cervical paraspinals and subscap. Pt supine: grade II-III PA mobs and upglides with increased tension left C1 -2, B 1st rib isometric, STM B SCMs. Left upper cervical isometric. PT-OP-T Assessment and Plan Start: 11/01/24 13:07 Freq: Status: Active Protocol: Document 01/22/25 09:00 MB (Rec: 01/22/25 09:41 MB Desktop) Physical Therapy Assessment Goals Two Impairment impairments in L shoulder flexion AROM 140 deg Interlocking Machine Operator Goal (LTG) Pt will increase L shoulder flexion AROM to >160 deg in order to perform reaching ADLs and for better lifting form at gym 11/27/24: 160 deg flex, pinching at midrange 12/19/24: 160 deg flex, 170 deg abd (reports most limiting d/ t pain); pain with both at anterior shoulder, does have some popping with mid range flexion and abduction 01/19/25: Right shoulder 165 deg, left shoulder 160 deg and ongoin pinching end-range LTG Duration Plateau One Impairment impairments in cervical spine ROM: L lateral flex 25 deg, L rotation 45 deg Short Term Goal (STG) Pt will increase L lateral flexion >35 deg for improved cervical spine rotation 11/27/24: 25 deg L, 35 deg R 12/19/24: STG Duration 12/27/24 NOT MET 11/27 Interlocking Machine Operator Goal (LTG) Pt will increase L cervical spine rotation to at least 65 deg for improved visual scanning 11/27/24: 65 deg L rot, 70 deg R rot 01/22/25: 31 deg flexion, 25 deg extension and uncomfortable posterior cervical spine, rotation right 65 deg, rotation left 55 deg, SB right 20 deg and left 25 deg and pain on left side LTG Duration Plateaued and con't with pain Assessment Summary Assessment Pt has been coming to PT about 2 1/2 months and she con't to have neck pain, trouble moving it and pain after lifting. PT suspects left shoulder abnormality and recommends follow-up with PCP and pt cannot get in until mid February. PT recommends possible left shoulder MRI as physician deems appropriate. Looking into cervcial spine may also be something to consider given neck stiffness, left thumb rubber band popping sensation and neck issues after lifting overhead. This could possible be a cervical radiculopathy pattern vs left upper traps and levator compensating for left shoulder pathology. Recommend ortho consult. Pt to stop lifting overhead and to con't with massage therapy. Manual work for neck as been helpful. Once again, this PT has only been able to see pt three times including today during PT course and so unsure if cervical spine is primary or secondary to left shoulder issues. Will d/c PT.
== END 2025-01-23 12:58 | disposition home or self-care (01) ==
LOC: PHYS 09:00
PROVIDERS: Family Provider Family Medicine; PCP Family Medicine; Referring Provider Family Medicine; Visit Provider Family Medicine
DX: M54.2 Cervicalgia (principal); M25.519 Pain in unspecified shoulder; M89.8X1 Other specified disorders of bone, shoulder; G54.0 Brachial plexus disorders; R53.1 Weakness; M25.612 Stiffness of left shoulder, not elsewhere classified
CPT/HCPCS: 97110; 97140; 97161; 97535

== ENCOUNTER → 2025-10-04 11:26 | Outpatient (CLI) | payer BC, SELFPAY ==
--- NOTE | 2025-10-04 11:28 | DI.MG.S_ITS ---
MM screening mammo BI: 10/04/2025. BI-RADS: 1 CLINICAL: 45-year old female for bilateral screening mammogram. Tyrer-Cuzick lifetime risk of 8.2%. No personal or first-degree family history of breast cancer. PRIOR EXAMS 07/16/2024, 10/14/2022, 09/17/2019. MAMMOGRAPHY TECHNIQUE: 2D and 3D (tomosynthesis) digital mammographic views obtained, with additional images as needed for full coverage. Current study was also evaluated with a Computer Aided Detection (CAD) system. DENSITY C. The breasts are heterogeneously dense, which may obscure small masses. MAMMOGRAPHY FINDINGS Bilateral: No suspicious mass, asymmetry, microcalcification, or other abnormality seen. IMPRESSION: * No evidence of malignancy. RECOMMENDATIONS Bilateral * Annual screening mammography. OVERALL ASSESSMENT CATEGORY BI-RADS-1: Negative. [employer] recommends annual screening mammography beginning at age 40 for women with average risk of breast cancer. ELECTRONICALLY SIGNED: Charleen Hameed M.D. on 10/04/2025 at 04:46:36 PM PT Interpreting Station ID: [id number]
== END ==
LOC: MAMMO 11:27
PROVIDERS: PCP Family Medicine; Referring Provider Family Medicine; Visit Provider Family Medicine
DX: Z12.31 Encounter for screening mammogram for malignant neoplasm of breast (principal); R92.333 Mammographic heterogeneous density, bilateral breasts
CPT/HCPCS: 77063; 77067